=== PATIENT | female | born 1985 ===

== ENCOUNTER 2020-02-07 17:00 | Outpatient (REF) | payer OTHER, SELFPAY ==
[2020-02-09 10:30] LABS: BV Int Neg Control Negative (Negative); BV Int Pos Control Positive (Positive)
== END 2020-02-07 17:01 | disposition home or self-care (01) ==
LOC: HO.LAB 17:00
PROVIDERS: Visit Provider Nurse Practitioner Family
DX: N89.8 Other specified noninflammatory disorders of vagina (principal)
CPT/HCPCS: 87480; 87510; 87660

== ENCOUNTER 2020-02-20 10:58 | Outpatient (REF) | payer OTHER, SELFPAY | END 2020-02-20 10:59 | disposition home or self-care (01) | LOC: HO.LAB 10:58 | PROVIDERS: PCP Internal Medicine; Visit Provider Internal Medicine | DX: Z20.828 Contact with and (suspected) exposure to other viral communicable diseases (principal) | CPT/HCPCS: C9803; U0003 ==

== ENCOUNTER → 2020-02-29 11:44 | Outpatient (BNVA) | payer OTHER, SELFPAY | PROVIDERS: PCP Internal Medicine; Visit Provider Advanced Practice Midwife | DX: Z76.89 Persons encountering health services in other specified circumstances (principal) ==

== ENCOUNTER 2020-03-20 09:04 | Outpatient (REF) | payer OTHER, SELFPAY ==
[2020-03-20 11:47] LABS: Syphilis Screen Nonreactive (Nonreactive)
[2020-03-20 11:49] LABS: HIV AB/AG Nonreactive (Nonreactive); HIV Num 1 0.15 S/CO (0.00-0.99); ~HepC Num1 0.06 S/CO (0.00-0.79); ~Hepatitis C Antibody Nonreactive (Nonreactive)
[2020-03-20 11:56] LABS: Glucose Urine UA NEG (NEG); Leukocyte Esterase Urine 1+ (NEG); Nitrite Urine NEG (NEG); Urine Blood NEG (NEG); Urine Ketones NEG (NEG); Urine Protein NEG (NEG-TRACE)
[2020-03-20 12:00] LABS: Appearance Urine HAZY; Color Urine STRAW
[2020-03-20 12:19] LABS: Bacteria Urine 4+ /LPF; RBC Urine 0 /HPF (0); Squamous Epithelial Cell Urine 3+ /LPF
[2020-03-21 11:09] LABS: BV Int Neg Control Negative (Negative); BV Int Pos Control Positive (Positive)
[2020-03-23 06:38] LABS: CT PCR NOT DETECTED (Not Detect.); NG PCR NOT DETECTED (Not Detect.)
== END 2020-03-20 09:05 | disposition home or self-care (01) ==
LOC: HO.LAB 09:04
PROVIDERS: PCP Internal Medicine; Visit Provider Advanced Practice Midwife
DX: Z01.419 Encounter for gynecological examination (general) (routine) without abnormal findings (principal); R30.0 Dysuria; Z20.2 Contact with and (suspected) exposure to infections with a predominantly sexual mode of transmission; Z72.51 High risk heterosexual behavior
CPT/HCPCS: 81001; 81025; 86780; 86803; 87389; 87480; 87491; 87510; 87591; 87660

== ENCOUNTER 2020-04-19 11:51 | Outpatient (REF) | payer OTHER, SELFPAY ==
[2020-04-19 14:40] LABS: Influenza A PCR NEGATIVE (Negative); Influenza B PCR NEGATIVE (Negative); Resp Syncy Virus RNA Qual PCR NEGATIVE (Negative); SARS COV2 PCR INHOUSE NEGATIVE (Negative)
== END 2020-04-19 11:52 | disposition home or self-care (01) ==
LOC: HO.LAB 11:51
PROVIDERS: Visit Provider Nurse Practitioner Family
DX: L03.90 Cellulitis, unspecified (principal); Z20.822 Contact with and (suspected) exposure to COVID-19
CPT/HCPCS: 0241U; 36415

== ENCOUNTER 2020-07-05 16:11 | Outpatient (REF) | payer OTHER, SELFPAY ==
--- NOTE | ~2020-07-05 | XR_ITS ---
EXAMINATION: XR LUMBAR SPINE XR PELVIS CLINICAL INFORMATION: Low back pain COMPARISON: Lumbar spine 06/04/2011 TECHNIQUE: The lumbar spine is imaged in 3 views. AP view of the pelvis is performed. FINDINGS: There are 5 nonrib-bearing lumbar vertebrae of normal height and normal lumbar lordosis. There is probable spina bifida occulta at S1. There is no vertebral compression, spondylolisthesis, disc narrowing, destructive process. The SI joints and visualized sacrum are unremarkable. The bony pelvis shows no fracture or destructive process. The SI joints and pubis show no diastases. The hips are unremarkable. Bowel gas unremarkable. XR/XR lumbar spine 2-3V IMPRESSION: 1. Unremarkable lumbar spine similar to prior exam 2011. 2. Normal pelvis.
--- NOTE | ~2020-07-05 | XR_ITS ---
EXAMINATION: XR LUMBAR SPINE XR PELVIS CLINICAL INFORMATION: Low back pain COMPARISON: Lumbar spine 06/04/2011 TECHNIQUE: The lumbar spine is imaged in 3 views. AP view of the pelvis is performed. FINDINGS: There are 5 nonrib-bearing lumbar vertebrae of normal height and normal lumbar lordosis. There is probable spina bifida occulta at S1. There is no vertebral compression, spondylolisthesis, disc narrowing, destructive process. The SI joints and visualized sacrum are unremarkable. The bony pelvis shows no fracture or destructive process. The SI joints and pubis show no diastases. The hips are unremarkable. Bowel gas unremarkable. XR/XR pelvis 1-2V IMPRESSION: 1. Unremarkable lumbar spine similar to prior exam 2011. 2. Normal pelvis.
== END 2020-07-05 16:12 | disposition home or self-care (01) ==
LOC: HO.HMGCX 16:11
PROVIDERS: PCP Internal Medicine; Visit Provider Hospitalist
DX: M54.5 Low back pain (principal)
CPT/HCPCS: 72100; 72170

== ENCOUNTER 2020-09-04 16:57 | Outpatient (REF) | payer OTHER, SELFPAY ==
[2020-09-06 08:45] LABS: BV Int Neg Control Negative (Negative); BV Int Pos Control Positive (Positive)
== END 2020-09-04 16:58 | disposition home or self-care (01) ==
LOC: HO.LAB 16:57
PROVIDERS: Visit Provider Nurse Practitioner Family
DX: N89.8 Other specified noninflammatory disorders of vagina (principal)
CPT/HCPCS: 87480; 87510; 87660

== ENCOUNTER 2020-11-21 10:56 | Outpatient (REF) | payer OTHER, SELFPAY ==
[2020-11-21 12:35] LABS: MANUAL DIFF FLAG NO
[2020-11-21 12:43] LABS: Basophils Percent Auto 0.2 % (0-2); Eosinophils Absolute Auto 0.1 X10*3/uL (0.0-0.4); Eosinophils Percent Auto 1.1 % (0-4); Hematocrit 36.9 % (37-47); Hemoglobin 12.1 g/dl (12.0-16.0); Imm Gran Abs Auto 0.04 X10*3/uL (0.00-0.03); Imm Gran Pct Auto 0.5 % (0.0-0.4); Lymphocytes Absolute Auto 1.4 X10*3/uL (1.2-4.9); Lymphocytes Percent Auto 16.9 % (20-40); Mean Corpuscular HGB Conc 32.8 g/dl (31.0-35.0); Mean Corpuscular Hemoglobin 28.9 pg (27.0-33.0); Mean Corpuscular Volume 88.1 fL (80-98); Mean Platelet Volume 9.1 fL (9.4-12.3); Monocytes Absolute Auto 0.5 X10*3/uL (0.1-1.2); Monocytes Percent Auto 5.8 % (2-11); Neutrophils Absolute Auto 6.3 X10*3/uL (2.0-8.3); Neutrophils Percent Auto 75.5 % (45-73); Platelet Count 329 X10*3/uL (160-400); Red Blood Count 4.19 X10*6/uL (4.20-5.50); Red Cell Distribution Width 12.8 % (11.0-16.0); White Blood Count 8.3 X10*3/uL (4.8-10.8)
[2020-11-21 12:44] LABS: Glucose Urine UA NEG (NEG); Leukocyte Esterase Urine 1+ (NEG); Nitrite Urine NEG (NEG); Specific Gravity - Urine 1.015 (1.005-1.025); Urine Blood NEG (NEG); Urine Ketones NEG (NEG); Urine Protein NEG (NEG-TRACE)
[2020-11-21 12:48] LABS: Appearance Urine HAZY; Color Urine YELLOW
[2020-11-21 12:55] LABS: Bacteria Urine 4+ /LPF; RBC Urine 0 /HPF (0); Squamous Epithelial Cell Urine 3+ /LPF
[2020-11-21 13:14] LABS: Alanine Aminotransferase 20 U/L (0-31); Albumin Level 3.6 g/dL (3.5-5.0); Alkaline Phosphatase 95 U/L (39-117); Anion Gap 13 (12-20); Aspartate Amino Transferase 18 U/L (5-31); Bilirubin Total 0.3 mg/dL (0.0-1.0); Blood Urea Nitrogen 4 mg/dL (9-16); Calcium 9.2 mg/dL (8.4-10.2); Carbon Dioxide 23 mmol/L (22-29); Chloride 105 mmol/L (96-108); Cholesterol 190 mg/dL; Estimated Glomerular Filt Rate > 60; Glucose Random 81 mg/dL (60-115); HDL Cholesterol 57 mg/dL; LDL Cholesterol Calculated 115 mg/dl; Potassium 3.9 mmol/L (3.3-5.1); Sodium 137 mmol/L (135-145); Total Protein 6.3 g/dL (6.5-8.0); Triglycerides 91 mg/dL
[2020-11-21 16:19] LABS: Folate 6.1 ng/mL (> or = 4.0); Vitamin B12 266 pg/mL (200-900)
[2020-11-22 04:26] LABS: HBc Num1 0.09 S/CO (0.00-0.79); HBsAGNum1 0.13 S/CO (0.00-0.99); HIV AB/AG Nonreactive (Nonreactive); HIV Num 1 0.05 S/CO (0.00-0.99); Hepatitis B Core Antibody Nonreactive (Nonreactive); Hepatitis B Surface Antigen Negative (Negative); ~HepC Num1 0.07 S/CO (0.00-0.79); ~Hepatitis C Antibody Nonreactive (Nonreactive)
[2020-11-22 04:37] LABS: ~Hepatitis B Surface Antibody REACTIVE (Nonreactive)
== END 2020-11-21 10:57 | disposition home or self-care (01) ==
LOC: HO.LAB 10:56
PROVIDERS: PCP Internal Medicine; Visit Provider Internal Medicine
DX: R94.5 Abnormal results of liver function studies (principal); E66.9 Obesity, unspecified; E78.00 Pure hypercholesterolemia, unspecified
CPT/HCPCS: 36415; 80053; 80061; 81001; 82306; 82607; 82746; 84439; 84443; 85025; 86704; 86706; 86803; 87340; 87389

== ENCOUNTER 2020-12-14 03:35 | Emergency (ER) | payer OTHER, SELFPAY ==
[2020-12-14] VITALS (8 sets, daily range): BP systolic 102–129; BP diastolic 57–89; PULSE 81–93; RESP 14–28; TEMP 37.3; O2SAT 89–100; BMI 34.9
--- NOTE | 2020-12-14 03:47 | PC.NURSE ---
PT PLACED ON 6L NC . FETUS HAS PASSED WITH DR MURPHY PT JORGE WELL.
[2020-12-14 03:51] LABS: MANUAL DIFF FLAG NO
[2020-12-14 03:52] LABS: Basophils Percent Auto 0.2 % (0-2); Eosinophils Absolute Auto 0.1 X10*3/uL (0.0-0.4); Eosinophils Percent Auto 0.9 % (0-4); Hematocrit 36.5 % (37-47); Hemoglobin 12.5 g/dl (12.0-16.0); Imm Gran Abs Auto 0.03 X10*3/uL (0.00-0.03); Imm Gran Pct Auto 0.3 % (0.0-0.4); Lymphocytes Absolute Auto 2.5 X10*3/uL (1.2-4.9); Lymphocytes Percent Auto 21.4 % (20-40); Mean Corpuscular HGB Conc 34.2 g/dl (31.0-35.0); Mean Corpuscular Hemoglobin 29.8 pg (27.0-33.0); Mean Corpuscular Volume 86.9 fL (80-98); Mean Platelet Volume 8.6 fL (9.4-12.3); Monocytes Absolute Auto 0.7 X10*3/uL (0.1-1.2); Monocytes Percent Auto 6.2 % (2-11); Neutrophils Absolute Auto 8.3 X10*3/uL (2.0-8.3); Platelet Count 314 X10*3/uL (160-400); Red Cell Distribution Width 12.5 % (11.0-16.0); White Blood Count 11.6 X10*3/uL (4.8-10.8)
--- NOTE | 2020-12-14 04:08 | PC.NURSE ---
this nuclear unit operator called [facility] medical transfer line and spoke to Theresa @[phone]
--- NOTE | 2020-12-14 04:11 | ED.FEMALEGU ---
HPI - Female Genitourinary General Chief complaint: Urogenital-Female Stated complaint: bleeding, Time Seen by Provider: 12/14/20 04:08 Source: patient Mode of arrival: ambulatory Limitations: no limitations History of Present Illness HPI Narrative: Patient comes to the emergency room complaining of contractions. Patient is known to be a at 20 weeks of gestational age. Patient states that early in her she had an ultrasound done and the was confirmed. Patient has not had any care. 2 hours prior to arriving to the emergency room, patient woke up with intense contractions every 3 minutes lasting for approximately 1 minute. 1 hour prior to arrival, her water broke. Related Data Home Medications Medication Instructions Recorded Confirmed loratadine 10 mg tablet 10 mg PO DAILY 11/21/20 11/21/20 Previous Rx's Medication Instructions Recorded acyclovir 200 mg capsule 800 mg PO DAILY #360 cap 06/15/20 Allergies Allergy/AdvReac Type Severity Reaction Status Date / Time doxycycline Allergy Unknown unknown Verified 11/21/20 10:22 latex Allergy Unknown rash Verified 11/21/20 10:22 minocycline Allergy Unknown unknown Verified 11/21/20 10:22 shellfish derived AdvReac Unknown Verified 12/14/20 04:14 Review of Systems Review of Systems: Constitutional : No Weight loss, No Fever, No Chills, No Night Sweats, No Fatigue, No Malaise ENT/Mouth : No Hearing loss, No Ear Pain, No Nasal Congestion, No Sinus Pain, No Hoarseness, No sore throat, No Rhinorrhea, No Swallowing Difficulty Eyes: No Eye Pain, No Swelling, No Redness, No Foreign Body, No Discharge, No Vision Changes Cardiovascular : No Chest Pain, No SOB, No Dyspnea on Exertion, No Orthopnea, No Edema, No Palpitations Respiratory : No Cough, No Sputum, No Wheezing, No Smoke Exposure, No Dyspnea Gastrointestinal : No Nausea, No Vomiting, No Diarrhea, No Constipation genitourinary: Intense contractions, copious vaginal fluid leakage with some blood Musculoskeletal : No joint pain, No Myalgias, No Joint Swelling Skin : No Skin Lesions, No rash Neuro : No Weakness, No Numbness, No Paresthesias, No Loss of Consciousness, No Dizziness, No Headache Psych : No Anxiety/Panic, No Depression, No SI/HI/AH/VH, No Social Issues, Heme/Lymph: No Bruising, No Bleeding,No Lymphadenopathy Endocrine : No Polyuria, No Polydipsia, No Temperature Intolerance [facility] Past Medical History Medical History Anxiety and depression Back pain Body aches after vaccination Carpal tunnel syndrome Cellulitis Exposure to COVID-19 virus Fracture of middle phalanx of right ring finger GERD (gastroesophageal reflux disease) Obesity (BMI 30-39.9) Potential exposure to STD Somatic dysfunction of left sacroiliac joint Somatic dysfunction of right sacroiliac joint Vaginal discharge Vitamin D deficiency Surgical History Deficient knowledge of leg surgery Family History Family History Maternal Grandmother Heart disease Hypertension Father No problems noted. Mother Diabetes CVD (cardiovascular disease) Maternal Grandfather Heart disease Hypertension Myocardial infarction Maternal Aunt Ovarian ca Maternal Uncle Diabetes Paternal Uncle Diabetes Social History Social History Housing: House Alcohol intake: current Alcohol intake frequency: holidays/special occasions only Patient Tobacco Use Status: Former Tobacco user Tobacco use type: Cigarette e-Cigarette/Vaping Use: Never Used Second Hand Smoke Exposure: No service: No Current occupational status: employed Current occupational exposures/hazards: No Gender identity: Female Physical Exam Vital Signs: Vital Signs: Last Vital Signs Temp 99.1 F 12/14/20 03:58 Pulse 93 12/14/20 05:00 Resp 20 12/14/20 05:00 BP 126/89 12/14/20 05:00 Pulse Ox 100 12/14/20 05:00 Body Mass Index 34.9 Const: Other: Appearance: Alert. In active labor Eyes: Pupils equal, round and reactive to light. ENT: Pharynx normal. Neck: Normal inspection. Neck supple. No lymph nodes noted. No crepitus CVS: Normal heart rate and rhythm. Pulses normal. Normal S1 and S2 Respiratory: No respiratory distress. Breath sounds normal. No Wheezing. No rales Abdomen: Uterus matt every 2-3 minutes. Gu: On pelvic exam, the fetus is in the vaginal canal, a bedside ultrasound shows a questionable heartbeat of blood and 20 beats per minute Skin: Skin warm and dry. Extremities: No lower extremity edema. No lower extremity edema. No Lacerations. No Rash Neuro: Oriented X 3. No motor deficit. No sensory deficit. Moving all extermities. No slurred speech. Course Course Course Narrative: Unfortunately, the patient delivered prematurely. The fetus was delivered, very premature, no pulses present, no respiratory effort present, resuscitation was not attempted. After delivering the fetus, the umbilical cord broke, the placenta was not delivered. Patient had minimal vaginal bleeding, the uterus was very boggy, 10 units of Pitocin were injected IM in the right thigh. Bleeding stopped. The placenta could not be delivered. I discussed the patient with Dr. Stone . Patient's vitals are stable, receiving IV fluids. Patient needs to be transferred to [facility], Dr. Stone does not recommend that we delivered the placenta here. There is no vaginal bleeding at this time. I discussed the patient with Dr. Saunders from [facility] OBGYN service. Patient accepted. COVID negative MDM - Female Genitourinary Lab Data Result diagrams: 12/14/20 03:40 12/14/20 03:40 Labs: Lab Results 12/14/20 12/14/20 12/14/20 Range/Units 03:40 03:40 04:05 WBC 11.6 H (4.8-10.8) X10*3/uL RBC 4.20 (4.20-5.50) X10*6/uL Hgb 12.5 (12.0-16.0) g/dl Hct 36.5 L (37-47) % MCV 86.9 (80-98) fL MCH 29.8 (27.0-33.0) pg MCHC 34.2 (31.0-35.0) g/dl RDW 12.5 (11.0-16.0) % Plt Count 314 (160-400) X10*3/uL MPV 8.6 L (9.4-12.3) fL Immature Gran % (Auto) 0.3 (0.0-0.4) % Neut % (Auto) 71.0 (45-73) % Lymph % (Auto) 21.4 (20-40) % [place] % (Auto) 6.2 (2-11) % Eos % (Auto) 0.9 (0-4) % Baso % (Auto) 0.2 (0-2) % Lymph # (Auto) 2.5 (1.2-4.9) X10*3/uL [place] # (Auto) 0.7 (0.1-1.2) X10*3/uL Eos # (Auto) 0.1 (0.0-0.4) X10*3/uL Baso # (Auto) 0.0 (0.0-0.2) X10*3/uL Abs Immat Gran (auto) 0.03 (0.00-0.03) X10*3/uL Absolute Neuts (auto) 8.3 (2.0-8.3) X10*3/uL Absolute Nucleated RBC 0.000 (0.0-0.012) X10*3/uL Nucleated RBC % (auto) 0.0 (0.0-0.2) /100WBC Sodium 137 (135-145) mmol/L Potassium 4.0 (3.3-5.1) mmol/L Chloride 106 (96-108) mmol/L Carbon Dioxide 21 L (22-29) mmol/L Anion Gap 14 (12-20) BUN 5 L (9-16) mg/dL Creatinine 0.59 (0.5-1.4) mg/dL Estim Creat Clear Calc 129.5 Estimated GFR > 60 Random Glucose 128 H D (60-115) mg/dL Calcium 9.1 (8.4-10.2) mg/dL Total Bilirubin 0.2 (0.0-1.0) mg/dL AST 18 (5-31) U/L ALT 8 (0-31) U/L Alkaline Phosphatase 104 (39-117) U/L Total Protein 6.5 (6.5-8.0) g/dL Albumin 3.6 (3.5-5.0) g/dL Beta HCG, Quant 294 mIU/mL COVID-19 (DENISE) (Negative) COVID-19 Clin Com Blood Type O Positive Antibody Screen NEGATIVE 12/14/20 Range/Units 04:16 WBC (4.8-10.8) X10*3/uL RBC (4.20-5.50) X10*6/uL Hgb (12.0-16.0) g/dl Hct (37-47) % MCV (80-98) fL MCH (27.0-33.0) pg MCHC (31.0-35.0) g/dl RDW (11.0-16.0) % Plt Count (160-400) X10*3/uL MPV (9.4-12.3) fL Immature Gran % (Auto) (0.0-0.4) % Neut % (Auto) (45-73) % Lymph % (Auto) (20-40) % [place] % (Auto) (2-11) % Eos % (Auto) (0-4) % Baso % (Auto) (0-2) % Lymph # (Auto) (1.2-4.9) X10*3/uL [place] # (Auto) (0.1-1.2) X10*3/uL Eos # (Auto) (0.0-0.4) X10*3/uL Baso # (Auto) (0.0-0.2) X10*3/uL Abs Immat Gran (auto) (0.00-0.03) X10*3/uL Absolute Neuts (auto) (2.0-8.3) X10*3/uL Absolute Nucleated RBC (0.0-0.012) X10*3/uL Nucleated RBC % (auto) (0.0-0.2) /100WBC Sodium (135-145) mmol/L Potassium (3.3-5.1) mmol/L Chloride (96-108) mmol/L Carbon Dioxide (22-29) mmol/L Anion Gap (12-20) BUN (9-16) mg/dL Creatinine (0.5-1.4) mg/dL Estim Creat Clear Calc Estimated GFR Random Glucose (60-115) mg/dL Calcium (8.4-10.2) mg/dL Total Bilirubin (0.0-1.0) mg/dL AST (5-31) U/L ALT (0-31) U/L Alkaline Phosphatase (39-117) U/L Total Protein (6.5-8.0) g/dL Albumin (3.5-5.0) g/dL Beta HCG, Quant mIU/mL COVID-19 (DENISE) Negative (Negative) COVID-19 Clin Com See Note Blood Type Antibody Screen Discharge Plan Discharge Clinical Impression: labor second trimester with delivery second trimester, other fetus Patient Disposition: Xfer Acute Care Hospital Transfer Details: [facility] Prescriptions: No Action acyclovir 200 mg capsule 800 mg PO DAILY Qty: 360 RF: 0 loratadine 10 mg tablet 10 mg PO DAILY RF: 0 Interventions: Acute Care Transfer Worksheet (ED) Last Done: 12/14/20 05:17 Discharge Date/Time: 12/14/20 05:05
[2020-12-14 04:13] LABS: HCG Quantitative 294 mIU/mL
[2020-12-14 04:17] LABS: Alanine Aminotransferase 8 U/L (0-31); Albumin Level 3.6 g/dL (3.5-5.0); Alkaline Phosphatase 104 U/L (39-117); Anion Gap 14 (12-20); Aspartate Amino Transferase 18 U/L (5-31); Bilirubin Total 0.2 mg/dL (0.0-1.0); Blood Urea Nitrogen 5 mg/dL (9-16); Calcium 9.1 mg/dL (8.4-10.2); Carbon Dioxide 21 mmol/L (22-29); Chloride 106 mmol/L (96-108); Creatinine Clr Calc Pharmacy 129.5; Estimated Glomerular Filt Rate > 60; Glucose Random 128 mg/dL (60-115); Sodium 137 mmol/L (135-145); Total Protein 6.5 g/dL (6.5-8.0)
--- NOTE | 2020-12-14 04:19 | PC.NURSE ---
pt is having contractions no placenta at this time. 2l ns wide open. pt is alert oriented, is aware of the need to be transported to [facility].
--- NOTE | 2020-12-14 04:20 | PC.RT ---
this cracking unit operator called [facility] transfer line for the second time @[phone]
[2020-12-14 04:34] LABS: COVID-19 Test Negative (Negative)
--- NOTE | 2020-12-14 04:37 | P.CONOB_ITS ---
OB Consult Note - [facility] Data Service Date: 12/14/20 Primary Care Provider: Unknown Physician Narrative I was Called at 03:56 a.m. from the emergency room regarding Georgette Oliveros who is a 35 year old female presented the emergency room with crampy abdominal pain of 3 hours duration and had a vaginal delivery at 20 weeks of gestation aft er a gush of fluid few minutes prior to delivery, the placenta was not delivered yet, the patient received Pitocin after delivery. No active bleeding. I Arrived to the emergency room at 04:15 a.m. patient is doing well with no vaginal bleeding. Patient has no care, no history of cervical procedures or LEEP. H&H within normal, Rh positive FORMS EXAMINER - Review of Systems Review of Systems ROS Unobtainable: All systems reviewed & are unremarkable except as noted in HPI and below OB PMFSH Past Medical History Medical History Anxiety and depression Back pain Body aches after vaccination Carpal tunnel syndrome Cellulitis Exposure to COVID-19 virus Fracture of middle phalanx of right ring finger GERD (gastroesophageal reflux disease) Obesity (BMI 30-39.9) Potential exposure to STD Somatic dysfunction of left sacroiliac joint Somatic dysfunction of right sacroiliac joint Vaginal discharge Vitamin D deficiency Family History Family History Maternal Grandmother Heart disease Hypertension Father No problems noted. Mother Diabetes CVD (cardiovascular disease) Maternal Grandfather Heart disease Hypertension Myocardial infarction Maternal Aunt Ovarian ca Maternal Uncle Diabetes Paternal Uncle Diabetes Surgical History Surgical History Deficient knowledge of leg surgery Social History Social History Housing: House Alcohol intake: current Alcohol intake frequency: holidays/special occasions only Patient Tobacco Use Status: Former Tobacco user Tobacco use type: Cigarette e-Cigarette/Vaping Use: Never Used Second Hand Smoke Exposure: No Advance Directives: No Advance Directives Information Provided: Yes Patient : Yes service: No Current occupational status: employed Current occupational exposures/hazards: No Gender identity: Female Meds Allergies Allergy/AdvReac Type Severity Reaction Status Date / Time doxycycline Allergy Unknown unknown Verified 08/12/21 10:22 latex Allergy Unknown rash Verified 11/21/20 10:22 minocycline Allergy Unknown unknown Verified 11/21/20 10:22 shellfish derived AdvReac Unknown Verified 12/14/20 04:14 Home Medications Medication Instructions Recorded Confirmed Last Taken Type loratadine 10 mg tablet 10 mg PO DAILY 11/21/20 11/21/20 Unknown History OB Flowsheet OB Flowsheet & Tools History 3 Elective abortions Para Spontaneous abortions Hx # Term Pregnancies 2 Ectopic pregnancies Hx # Pregnancies Multiple births OB Physical Exam Physical Exam Constitutional: No apparent distress Additional Comments: No active bleeding, placenta in the uterus OB Consult Results Labs CBC & Chem 7: 12/14/20 03:40 12/14/20 03:40 Labs: Short CBC 12/14/20 Range/Units 03:40 WBC 11.6 H (4.8-10.8) X10*3/uL Hgb 12.5 (12.0-16.0) g/dl Hct 36.5 L (37-47) % Plt Count 314 (160-400) X10*3/uL BMP 12/14/20 03:40 Sodium 137 Potassium 4.0 Chloride 106 Carbon Dioxide 21 L BUN 5 L Creatinine 0.59 Calcium 9.1 Liver Function 12/14/20 Range/Units 03:40 Total Bilirubin 0.2 (0.0-1.0) mg/dL AST 18 (5-31) U/L ALT 8 (0-31) U/L Alkaline Phosphatase 104 (39-117) U/L Albumin 3.6 (3.5-5.0) g/dL OB - CN: A/P Assessment and Plan (1) labor second trimester with delivery second trimester, other fetus: Status: Acute (2) Retained placenta after delivery without hemorrhage but with other complication: Status: Acute Assessment and Plan: Since the patient is not having any active bleeding and the placenta has not delivered yet, I recommended transfer the patient to [facility] for placental delivery. EMS and [facility] called EMS arrived at 04:40 and [facility] accepted the transfer. Explained to the patient the rationale behind transfer of care, f or active management of the 3rd stage of labor and in case the placenta stays retained in utero the next step step could be D and E with possible blood transfusion. All questions answered, the patient verbalized understanding and agreed with the plan.
--- NOTE | 2020-12-14 05:01 | PC.NURSE ---
called [facility] to transport patient to [facility]. [facility] gave an ETA of 35-45 mins. Spoke with she stated this was not an acceptable wait time for a critical patient. [facility] refused to change the ETA at this time. [facility] was contacted and was able to provide a more acceptable time.
--- NOTE | 2020-12-14 05:07 | PC.NURSE ---
pt transfered to [facility]. vitals stable.
== END 2020-12-14 05:05 | disposition short-term general hospital (02) ==
PROVIDERS: Emergency Provider Emergency Medicine
DX: O60.1 Preterm labor with preterm delivery (principal); O73.0 Retained placenta without hemorrhage; Z3A.20 20 weeks gestation of pregnancy; Z20.822 Contact with and (suspected) exposure to COVID-19
CPT/HCPCS: 36415; 80053; 84702; 85025; 86850; 86900; 86901; 87635; 96372; 99285; J2590

== ENCOUNTER 2021-07-11 18:27 | Outpatient (REF) | payer OTHER, SELFPAY ==
[2021-07-11 19:06] LABS: Appearance Urine CLEAR; Color Urine YELLOW; Glucose Urine UA NEG (NEG); Leukocyte Esterase Urine NEG (NEG); Nitrite Urine NEG (NEG); PH 6.5 (5.0-8.0); Specific Gravity - Urine 1.015 (1.005-1.025); Urine Blood NEG (NEG); Urine Ketones NEG (NEG); Urine Protein NEG (NEG-TRACE)
[2021-07-11 19:18] LABS: Bacteria Urine 3+ /LPF; RBC Urine 0 /HPF (0); Squamous Epithelial Cell Urine 3+ /LPF; WBC Urine 0 /HPF (0-4)
[2021-07-12 12:22] LABS: BV Int Neg Control Negative (Negative); BV Int Pos Control Positive (Positive)
== END 2021-07-11 18:28 | disposition home or self-care (01) ==
LOC: HO.LNP 18:27
PROVIDERS: Internal Medicine; Visit Provider Nurse Practitioner Family
DX: E66.9 Obesity, unspecified (principal); R30.0 Dysuria; R35.0 Frequency of micturition; N89.8 Other specified noninflammatory disorders of vagina
CPT/HCPCS: 81001; 87086; 87480; 87510; 87660

== ENCOUNTER 2021-09-12 08:33 | Outpatient (REF) | payer OTHER, SELFPAY ==
[2021-09-12 11:28] LABS: MANUAL DIFF FLAG NO
[2021-09-12 11:43] LABS: Basophils Percent Auto 0.5 % (0-2); Eosinophils Absolute Auto 0.1 X10*3/uL (0.0-0.4); Eosinophils Percent Auto 1.3 % (0-4); Hematocrit 41.9 % (37.0-47.0); Hemoglobin 13.5 g/dl (12.0-16.0); Imm Gran Abs Auto 0.02 X10*3/uL (0.00-0.03); Imm Gran Pct Auto 0.3 % (0.0-0.4); Lymphocytes Absolute Auto 1.8 X10*3/uL (1.2-4.9); Lymphocytes Percent Auto 29.5 % (20-40); Mean Corpuscular HGB Conc 32.2 g/dl (31.0-35.0); Mean Corpuscular Hemoglobin 28.4 pg (27.0-33.0); Mean Corpuscular Volume 88.2 fL (80.0-98.0); Mean Platelet Volume 9.4 fL (9.4-12.3); Monocytes Absolute Auto 0.4 X10*3/uL (0.1-1.2); Monocytes Percent Auto 7.3 % (2-11); Neutrophils Absolute Auto 3.7 x10*3/uL (2.0-8.3); Neutrophils Percent Auto 61.1 % (45-73); Platelet Count 324 X10*3/uL (160-400); Red Blood Count 4.75 X10*6/uL (4.20-5.50); Red Cell Distribution Width 12.9 % (11.0-16.0)
[2021-09-12 11:57] LABS: Alanine Aminotransferase 13 U/L (0-31); Albumin Level 4.1 g/dL (3.5-5.0); Alkaline Phosphatase 94 U/L (39-117); Anion Gap 12 (12-20); Aspartate Amino Transferase 14 U/L (5-31); Bilirubin Total 0.5 mg/dL (0.0-1.0); Blood Urea Nitrogen 11 mg/dL (9-16); Calcium 9.8 mg/dL (8.4-10.2); Carbon Dioxide 24 mmol/L (22-29); Chloride 105 mmol/L (96-108); Cholesterol 151 mg/dL; Estimated Glomerular Filt Rate > 60; Glucose Random 103 mg/dL (60-115); HDL Cholesterol 44 mg/dL; LDL Cholesterol Calculated 96 mg/dl; Potassium 4.1 mmol/L (3.3-5.1); Sodium 137 mmol/L (135-145); Total Protein 7.2 g/dL (6.5-8.0); Triglycerides 58 mg/dL
[2021-09-12 12:10] LABS: Cortisol Random 13.9 ug/dL
[2021-09-12 12:21] LABS: Free T4 (Free Thyroxine) 0.97 ng/dL (0.71-1.85); Thyroid Stimulating Hormone 1.99 uIU/mL (0.32-4.0); Vitamin D 25-OH Total 26.2 ng/mL (>30)
[2021-09-12 12:34] LABS: Folate 8.7 ng/mL (> or = 4.0)
[2021-09-12 12:57] LABS: Estimated Average Glucose 111 mg/dL; Hemoglobin A1c % 5.5 %
[2021-09-12 14:52] LABS: Vitamin B12 399 pg/mL (200-900)
== END 2021-09-12 08:34 | disposition home or self-care (01) ==
LOC: HO.HMGCLDS 08:33
PROVIDERS: PCP Internal Medicine; Visit Provider Internal Medicine
DX: K21.9 Gastro-esophageal reflux disease without esophagitis (principal); E78.00 Pure hypercholesterolemia, unspecified; E66.9 Obesity, unspecified
CPT/HCPCS: 36415; 80053; 80061; 82306; 82533; 82607; 82746; 83036; 84439; 84443; 85025

== ENCOUNTER 2021-11-19 15:17 | Outpatient (REF) | payer OTHER, SELFPAY ==
[2021-11-19 16:09] LABS: Appearance Urine HAZY; Color Urine OTHER; Glucose Urine UA NEG (NEG); Leukocyte Esterase Urine 2+ (NEG); Nitrite Urine NEG (NEG); Specific Gravity - Urine <= 1.005 (1.005-1.025); Urine Blood 3+ (NEG); Urine Ketones NEG (NEG); Urine Protein 1+ MG/DL (NEG-TRACE)
[2021-11-19 16:17] LABS: Bacteria Urine 1+ /LPF; RBC Urine 50-75 /HPF (0); Squamous Epithelial Cell Urine 2+ /LPF
== END 2021-11-19 15:18 | disposition home or self-care (01) ==
LOC: HO.LAB 15:17
PROVIDERS: PCP Internal Medicine; Visit Provider Internal Medicine
DX: R35.0 Frequency of micturition (principal)
CPT/HCPCS: 81001

== ENCOUNTER 2021-11-25 09:49 | Emergency (ER) | payer OTHER, SELFPAY ==
--- NOTE | ~2021-11-25 | XR_ITS ---
EXAMINATION: XR CHEST CLINICAL INFORMATION: Weakness and difficulty breathing COMPARISON: None TECHNIQUE: 2 views of the chest were obtained. FINDINGS: No significant abnormality is noted involving the heart, lungs, mediastinum, bony thorax or soft tissues. XR/XR chest 2V IMPRESSION: Unremarkable examination.
[2021-11-25 10:00] VITALS: BP 112/63; PULSE 102; RESP 16; TEMP 36.8; O2SAT 98; BMI 34.7
[2021-11-25 10:32] LABS: COVID-19 Test Negative (Negative); IDNOW Serial# 16C4AD1C
--- NOTE | 2021-11-25 11:22 | ED_ITS ---
HPI - General Adult General Chief complaint: General Medical Stated complaint: sever body aches, sob Time Seen by Provider: 11/25/21 10:58 Source: patient Mode of arrival: ambulatory Limitations: no limitations History of Present Illness HPI narrative: 36 yo female healthy here with complaints of 2 days of body aches, fatigue, PEREA, runny nose, chills. Patient is currently on Bactrim for UTI which she started on 11/20. She does report some lower back pain and urinary symptoms which have continued. She denies any abdominal pain, vomiting, diarrhea, shortness of breath or chest pain. Patient does report chronic body aches and she has seen physical therapy, chiropractor and her primary care doctor. Related Data Home Medications Medication Instructions Recorded Confirmed loratadine 10 mg tablet 10 mg PO DAILY 11/21/20 08/26/21 Previous Rx's Medication Instructions Recorded acyclovir 200 mg capsule 800 mg PO DAILY #360 caps 03/21/21 epinephrine 0.3 mg/0.3 mL 0.3 mg (0.3 mL) IM Q10M PRN 07/11/21 injection, auto-injector (EpiPen) anaphylaxis #2 ea bupropion HCl 150 mg 24 hr tablet, 150 mg PO QAM #30 tabs 08/26/21 extended release (Wellbutrin XL) fluconazole 150 mg tablet 150 mg PO Q3D 2 doses #2 tabs 09/12/21 (Diflucan) ibuprofen 600 mg tablet 600 mg PO Q8H PRN pain #20 tabs 09/12/21 sulfamethoxazole 200 20 ml PO BID 7 days #280 mL 11/20/21 mg-trimethoprim 40 mg/5 mL oral suspension Allergies Allergy/AdvReac Type Severity Reaction Status Date / Time latex Allergy Unknown rash Verified 09/12/21 09:18 minocycline Allergy Unknown unknown Verified 09/12/21 09:18 shellfish derived AdvReac Unknown Verified 09/12/21 09:18 Review of Systems Review of Systems: Yes all other systems are reviewed and are negative Constitutional: Constitutional: Reports no additional constitutional complaints, Reports body ache(s), Reports chills, Reports fatigue, Denies fever(s), Reports headache(s) and Denies weakness Eyes: Eyes: Reports no additional eye complaints and Denies change in vision ENT: Reports system reviewed and no additional complaints, except as documented, Denies dizziness, Reports headache(s), Reports nasal congestion, Denies nasal discharge and Denies neck pain Cardiovascular: Cardiovascular: Reports no additional cardiovascular complaints, Denies chest pain, Denies leg edema and Denies dyspnea Respiratory: Respiratory: Reports no additional respiratory complaints, Denies cough and Denies dyspnea Gastrointestinal: Gastrointestinal: Reports no additional gastrointestinal complaints, Denies abdominal pain, Denies diarrhea, Denies nausea and Denies vomiting Genitourinary: Genitourinary: Reports no additional female genitourinary complaints, Reports dysuria and Denies urinary incontinence Musculoskeletal: Musculoskeletal: Reports no additional musculoskeletal complaints, Reports back pain, Denies arthralgias, Denies joint swelling, Denies neck pain, Denies numbness and Denies tingling Integumentary/Breasts: Skin/Breast: Reports system reviewed and no additional complaints, except as docu and Denies rash Neurologic: Reports system reviewed and no additional complaints, except as documented, Denies dizziness, Reports headache(s), Denies numbness, Denies tingling and Denies weakness Endocrine: Endocrine: Reports fatigue PMFSH Past Medical History Attestation statement: The following information was validated with the patient. Source: old records reviewed and nursing notes reviewed Medical History Anxiety and depression Back pain Body aches after vaccination Carpal tunnel syndrome Cellulitis Exposure to COVID-19 virus Fracture of middle phalanx of right ring finger GERD (gastroesophageal reflux disease) Obesity (BMI 30-39.9) Potential exposure to STD Somatic dysfunction of left sacroiliac joint Somatic dysfunction of right sacroiliac joint Vaginal discharge Vitamin D deficiency Surgical History Deficient knowledge of leg surgery Family History Family History Maternal Grandmother Heart disease Hypertension Father No problems noted. Mother Diabetes CVD (cardiovascular disease) Maternal Grandfather Heart disease Hypertension Myocardial infarction Maternal Aunt Ovarian ca Maternal Uncle Diabetes Paternal Uncle Diabetes Social History Social History Housing: House Alcohol intake: current Alcohol intake frequency: holidays/special occasions only Patient Tobacco Use Status: Never used Tobacco Tobacco use type: Cigarette e-Cigarette/Vaping Use: Never Used Second Hand Smoke Exposure: No Advance Directives: No Advance Directives Information Provided: No service: No Current occupational status: employed Current occupational exposures/hazards: No Gender identity: Female Cognitive needs: No Hearing needs: No Vision needs: No Physical Exam ED Vital Signs: Vital Signs - 24 hr 11/25/21 10:00 11/25/21 11:44 11/25/21 12:57 Temperature 98.3 F 99.4 F 100.8 F H Pulse Rate 102 H 101 H 92 Respiratory Rate 16 18 20 Blood Pressure 112/63 105/59 L 114/70 Pulse Oximetry 98 100 90 L Oxygen Delivery Method Room Air Room Air Room Air 11/25/21 14:44 Temperature Pulse Rate 104 H Respiratory Rate Blood Pressure Pulse Oximetry 99 Oxygen Delivery Method Room Air BMI result Body Mass Index 34.7 Const General: cooperative, healthy appearing, comfortable and no acute distress Orientation/consciousness: patient oriented x3 Limitations: no limitations HENMT Head: Yes normal to inspection Ears: hearing grossly normal bilaterally and TM's normal bilaterally General nose exam: Normal external nose present Face and sinus: Yes normal facial exam Mouth: Normal oral and palatal mucosa present Throat: Yes posterior oropharynx normal, Yes tonsils normal and Yes uvula midline Eyes General: appearance normal, both eyes and all related structures Pupils: Equal, round and reactive pupils present Neck Neck: Yes normal visual inspection, Yes full ROM, Yes no lymphadenopathy and Yes no meningeal signs Chest Chest palpation & inspection: normal inspection of the chest Resp Effort & Inspection: normal respiratory effort Auscultation: clear to auscultation bilaterally Cardio Rate: regular rate Rhythm: regular rhythm Peripheral pulses: Peripheral pulses 2+ throughout GI Inspection: Yes normal to inspection Palpation (GI): Soft to palpation and nontender General: Yes no CVA tenderness Back/Spine/Pelvis Back: no CVA tenderness Thoracic/Lumbar Spine: thoracic and lumbar spine normal to inspection Skin General skin exam: no rashes or lesions noted Neuro General: patient oriented x3, moves all extremities and no meningeal signs Cranial nerves: Yes Equal, round and reactive pupils present Cognition (Neuro): normal cognition Gait exam (Neuro): Normal gait present Extrem General: Yes normal to inspection, Yes no pedal edema and Yes no calf tenderness Course Course Course Narrative: 1300-patient COVID screen and urine shows no signs of infection. She has a fever of 100.8 and oxygen saturation of 90%. Will check labs and chest x-ray as well as flu screen. Patient to be given Toradol Reevaluation(s) Reevaluation #1: 1500-x-ray shows no acute finding. Labs are unremarkable. Flu screen is negative. Patient ambulated with a pulse oximeter with oxygen saturation 98 99%. Overall she is feeling improved. Her temperature is improved with an antipyretic. Likely viral syndrome. Plan for discharge home with supportive care. Reviewed worrisome signs and symp toms when to return to the emergency department. Comfortable discharge home. Medical Decision Making MDM Narrative Medical decision making narrative: 36-year-old female here with body aches, fatigue, headache, chills, runny nose for 2 days. Patient also complaining of continued low back pain and urinary symptoms despite being on Bactrim. Will check COVID testing, urine testing. Overall patient nontoxic -low concern for meningitis with no meningeal signs, no nuchal rigidity, overall nontoxic. Medical Records Medical records reviewed: Yes I reviewed the patient's medical records. Lab Data Lab results reviewed: Yes I reviewed the patient's lab results. Result diagrams: 11/25/21 13:18 11/25/21 13:18 Labs: Lab Results 11/25/21 11/25/21 11/25/21 Range/Units 10:04 11:32 11:32 WBC (4.8-10.8) X10*3/uL RBC (4.20-5.50) X10*6/uL Hgb (12.0-16.0) g/dl Hct (37.0-47.0) % MCV (80.0-98.0) fL MCH (27.0-33.0) pg MCHC (31.0-35.0) g/dl RDW (11.0-16.0) % Plt Count (160-400) X10*3/uL MPV (9.4-12.3) fL Immature Gran % (Auto) (0.0-0.4) % Neut % (Auto) (45-73) % Lymph % (Auto) (20-40) % [place] % (Auto) (2-11) % Eos % (Auto) (0-4) % Baso % (Auto) (0-2) % Lymph # (Auto) (1.2-4.9) X10*3/uL [place] # (Auto) (0.1-1.2) X10*3/uL Eos # (Auto) (0.0-0.4) X10*3/uL Baso # (Auto) (0.0-0.2) X10*3/uL Abs Immat Gran (auto) (0.00-0.03) X10*3/uL Absolute Neuts (auto) (2.0-8.3) x10*3/uL Absolute Nucleated RBC (0.0-0.012) X10*3/uL Nucleated RBC % (auto) (0.0-0.2) /100WBC PT (10.0-13.1) SEC INR (0.9-1.1) Sodium (135-145) mmol/L Potassium (3.3-5.1) mmol/L Chloride (96-108) mmol/L Carbon Dioxide (22-29) mmol/L Anion Gap (12-20) BUN (9-16) mg/dL Creatinine (0.5-1.4) mg/dL Estim Creat Clear Calc Estimated GFR Random Glucose (60-115) mg/dL Calcium (8.4-10.2) mg/dL Total Bilirubin (0.0-1.0) mg/dL Direct Bilirubin (0.0-0.5) mg/dL AST (5-31) U/L ALT (0-31) U/L Alkaline Phosphatase (39-117) U/L Total Protein (6.5-8.0) g/dL Albumin (3.5-5.0) g/dL Urine Color Yellow Urine Appearance Clear Urine pH 6.5 (5.0-8.0) Ur Specific [place] 1.025 (1.005-1.025) Urine Protein Negative (Neg-Trace) mg/dL Urine Glucose (UA) Negative (Negative) mg/dL Urine Ketones 15 (Negative) mg/dL Urine Blood Negative (Negative) Urine Nitrite Negative (Negative) Ur Leukocyte Esterase Trace H (Negative) Urine RBC 6-10 H (0-2) /HPF Urine WBC 0-5 (0-5) /HPF Ur Squamous Epith Cells 6-10 /HPF Urine Bacteria 2+ (None Seen) Hyaline Casts 0-2 /LPF Urine Test NEGATIVE (NEGATIVE) COVID-19 (DENISE) Negative (Negative) COVID-19 Clin Com See Note Influenza Type A (GRACE) (Negative) Influenza Type B (GRACE) (Negative) Influenza A & B Note 11/25/21 11/25/21 11/25/21 Range/Units 13:18 13:18 13:18 WBC 6.2 (4.8-10.8) X10*3/uL RBC 4.79 (4.20-5.50) X10*6/uL Hgb 13.6 (12.0-16.0) g/dl Hct 41.1 (37.0-47.0) % MCV 85.8 (80.0-98.0) fL MCH 28.4 (27.0-33.0) pg MCHC 33.1 (31.0-35.0) g/dl RDW 12.6 (11.0-16.0) % Plt Count 275 (160-400) X10*3/uL MPV 8.7 L (9.4-12.3) fL Immature Gran % (Auto) 0.8 H (0.0-0.4) % Neut % (Auto) 89.5 H (45-73) % Lymph % (Auto) 4.0 L (20-40) % [place] % (Auto) 3.8 (2-11) % Eos % (Auto) 1.9 (0-4) % Baso % (Auto) 0.0 (0-2) % Lymph # (Auto) 0.3 L (1.2-4.9) X10*3/uL [place] # (Auto) 0.2 (0.1-1.2) X10*3/uL Eos # (Auto) 0.1 (0.0-0.4) X10*3/uL Baso # (Auto) 0.0 (0.0-0.2) X10*3/uL Abs Immat Gran (auto) 0.05 H (0.00-0.03) X10*3/uL Absolute Neuts (auto) 5.6 (2.0-8.3) x10*3/uL Absolute Nucleated RBC 0.000 (0.0-0.012) X10*3/uL Nucleated RBC % (auto) 0.0 (0.0-0.2) /100WBC PT 11.8 (10.0-13.1) SEC INR 1.0 (0.9-1.1) Sodium 135 (135-145) mmol/L Potassium 4.1 (3.3-5.1) mmol/L Chloride 102 (96-108) mmol/L Carbon Dioxide 22 (22-29) mmol/L Anion Gap 15 (12-20) BUN 9 (9-16) mg/dL Creatinine 0.81 (0.5-1.4) mg/dL Estim Creat Clear Calc 93.2 Estimated GFR > 60 Random Glucose 101 (60-115) mg/dL Calcium 9.3 (8.4-10.2) mg/dL Total Bilirubin < 0.2 (0.0-1.0) mg/dL Direct Bilirubin < 0.2 (0.0-0.5) mg/dL AST 17 (5-31) U/L ALT 12 (0-31) U/L Alkaline Phosphatase 104 (39-117) U/L Total Protein 7.5 (6.5-8.0) g/dL Albumin 4.3 (3.5-5.0) g/dL Urine Color Urine Appearance Urine pH (5.0-8.0) Ur Specific [place] (1.005-1.025) Urine Protein (Neg-Trace) mg/dL Urine Glucose (UA) (Negative) mg/dL Urine Ketones (Negative) mg/dL Urine Blood (Negative) Urine Nitrite (Negative) Ur Leukocyte Esterase (Negative) Urine RBC (0-2) /HPF Urine WBC (0-5) /HPF Ur Squamous Epith Cells /HPF Urine Bacteria (None Seen) Hyaline Casts /LPF Urine Test (NEGATIVE) COVID-19 (DENISE) (Negative) COVID-19 Clin Com Influenza Type A (GRACE) (Negative) Influenza Type B (GRACE) (Negative) Influenza A & B Note 11/25/21 Range/Units 13:18 WBC (4.8-10.8) X10*3/uL RBC (4.20-5.50) X10*6/uL Hgb (12.0-16.0) g/dl Hct (37.0-47.0) % MCV (80.0-98.0) fL MCH (27.0-33.0) pg MCHC (31.0-35.0) g/dl RDW (11.0-16.0) % Plt Count (160-400) X10*3/uL MPV (9.4-12.3) fL Immature Gran % (Auto) (0.0-0.4) % Neut % (Auto) (45-73) % Lymph % (Auto) (20-40) % [place] % (Auto) (2-11) % Eos % (Auto) (0-4) % Baso % (Auto) (0-2) % Lymph # (Auto) (1.2-4.9) X10*3/uL [place] # (Auto) (0.1-1.2) X10*3/uL Eos # (Auto) (0.0-0.4) X10*3/uL Baso # (Auto) (0.0-0.2) X10*3/uL Abs Immat Gran (auto) (0.00-0.03) X10*3/uL Absolute Neuts (auto) (2.0-8.3) x10*3/uL Absolute Nucleated RBC (0.0-0.012) X10*3/uL Nucleated RBC % (auto) (0.0-0.2) /100WBC PT (10.0-13.1) SEC INR (0.9-1.1) Sodium (135-145) mmol/L Potassium (3.3-5.1) mmol/L Chloride (96-108) mmol/L Carbon Dioxide (22-29) mmol/L Anion Gap (12-20) BUN (9-16) mg/dL Creatinine (0.5-1.4) mg/dL Estim Creat Clear Calc Estimated GFR Random Glucose (60-115) mg/dL Calcium (8.4-10.2) mg/dL Total Bilirubin (0.0-1.0) mg/dL Direct Bilirubin (0.0-0.5) mg/dL AST (5-31) U/L ALT (0-31) U/L Alkaline Phosphatase (39-117) U/L Total Protein (6.5-8.0) g/dL Albumin (3.5-5.0) g/dL Urine Color Urine Appearance Urine pH (5.0-8.0) Ur Specific [place] (1.005-1.025) Urine Protein (Neg-Trace) mg/dL Urine Glucose (UA) (Negative) mg/dL Urine Ketones (Negative) mg/dL Urine Blood (Negative) Urine Nitrite (Negative) Ur Leukocyte Esterase (Negative) Urine RBC (0-2) /HPF Urine WBC (0-5) /HPF Ur Squamous Epith Cells /HPF Urine Bacteria (None Seen) Hyaline Casts /LPF Urine Test (NEGATIVE) COVID-19 (DENISE) (Negative) COVID-19 Clin Com Influenza Type A (GRACE) Negative (Negative) Influenza Type B (GRACE) Negative (Negative) Influenza A & B Note See Note Imaging Data Chest x-ray: Attestation: I personally reviewed and interpreted this imaging study as follows: Radiologist's impression: EXAMINATION: XR CHEST CLINICAL INFORMATION: Weakness and difficulty breathing COMPARISON: None TECHNIQUE: 2 views of the chest were obtained. FINDINGS: No significant abnormality is noted involving the heart, lungs, mediastinum, bony thorax or soft tissues. XR/XR chest 2V IMPRESSION: Unremarkable examination. Discharge Plan Discharge Clinical Impression: Acute viral syndrome Patient Disposition: Home, Self-Care Instructions: Viral Syndrome (ED) Additional Instructions: Your blood work is reassuring. Your x-ray shows no signs of pneumonia. Your COVID screen and flu screen are negative You likely have a virus Alternate Motrin or Tylenol for pain or fever as needed Increase fluids, rest Return for severe headache, neck pain or stiffness, rash, vomiting Prescriptions: No Action sulfamethoxazole-trimethoprim 200-40 mg/5 mL suspension 20 ml PO BID 7 Days Qty: 280 0RF loratadine 10 mg tablet 10 mg PO DAILY acyclovir 200 mg capsule 800 mg PO DAILY Qty: 360 0RF epinephrine [EpiPen] 0.3 mg/0.3 mL auto-injector 0.3 mg IM Q10M PRN (Reason: anaphylaxis) Qty: 2 0RF Rx Instructions: for 2 doses fluconazole [Diflucan] 150 mg tablet 150 mg PO Q3D Qty: 2 0RF ibuprofen 600 mg tablet 600 mg PO Q8H PRN (Reason: pain) Qty: 20 0RF bupropion HCl [Wellbutrin XL] 150 mg tablet extended release 24 hr 150 mg PO QAM Qty: 30 2RF Referrals: Po,Loan Mota MD [Primary Care Provider] - 5 days Stand Alone Forms: Work/School Release
[2021-11-25 11:42] LABS: Appearance Urine Clear; Color Urine Yellow; Glucose Urine UA Negative (Negative); Leukocyte Esterase Urine Trace (Negative); Nitrite Urine Negative (Negative); PH 6.5 (5.0-8.0); Specific Gravity - Urine 1.025 (1.005-1.025); Urine Blood Negative (Negative); Urine Ketones 15 mg/dL (Negative); Urine Protein Negative (Neg-Trace)
[2021-11-25 11:43] LABS: UPreg QC Valid YES; Urine Pregnancy NEGATIVE (NEGATIVE)
[2021-11-25 11:44] VITALS: BP 105/59; PULSE 101; RESP 18; TEMP 37.4; O2SAT 100
[2021-11-25] MEDS: Acetaminophen 325 MG TABLET 975 MG PO (11:47)
[2021-11-25 12:00] LABS: Bacteria Urine 2+ (None Seen); Hyaline Casts Urine 0-2 /LPF; WBC Urine 0-5 /HPF (0-5)
[2021-11-25 12:57] VITALS: BP 114/70; PULSE 92; RESP 20; TEMP 38.2; O2SAT 90
[2021-11-25] MEDS: Ketorolac Tromethamine 30 MG/ML VIAL IVPUSH (13:21)
[2021-11-25 13:22] LABS: MANUAL DIFF FLAG NO
[2021-11-25] MEDS: 0.9 % Sodium Chloride 1,000 ML 999 ML IV (13:22)
[2021-11-25 13:24] LABS: Eosinophils Absolute Auto 0.1 X10*3/uL (0.0-0.4); Eosinophils Percent Auto 1.9 % (0-4); Hematocrit 41.1 % (37.0-47.0); Hemoglobin 13.6 g/dl (12.0-16.0); Imm Gran Abs Auto 0.05 X10*3/uL (0.00-0.03); Imm Gran Pct Auto 0.8 % (0.0-0.4); Lymphocytes Absolute Auto 0.3 X10*3/uL (1.2-4.9); Mean Corpuscular HGB Conc 33.1 g/dl (31.0-35.0); Mean Corpuscular Hemoglobin 28.4 pg (27.0-33.0); Mean Corpuscular Volume 85.8 fL (80.0-98.0); Mean Platelet Volume 8.7 fL (9.4-12.3); Monocytes Absolute Auto 0.2 X10*3/uL (0.1-1.2); Monocytes Percent Auto 3.8 % (2-11); Neutrophils Absolute Auto 5.6 x10*3/uL (2.0-8.3); Neutrophils Percent Auto 89.5 % (45-73); Platelet Count 275 X10*3/uL (160-400); Red Blood Count 4.79 X10*6/uL (4.20-5.50); Red Cell Distribution Width 12.6 % (11.0-16.0); White Blood Count 6.2 X10*3/uL (4.8-10.8)
[2021-11-25 13:29] LABS: Prothrombin Time 11.8 SEC (10.0-13.1)
[2021-11-25 13:45] LABS: IDNOW Serial# 16C4AD1C; Influenza A Negative (Negative); Influenza B2 Negative (Negative)
[2021-11-25 13:49] LABS: Alanine Aminotransferase 12 U/L (0-31); Albumin Level 4.3 g/dL (3.5-5.0); Alkaline Phosphatase 104 U/L (39-117); Anion Gap 15 (12-20); Aspartate Amino Transferase 17 U/L (5-31); Bilirubin Direct < 0.2 mg/dL (0.0-0.5); Bilirubin Total < 0.2 mg/dL (0.0-1.0); Blood Urea Nitrogen 9 mg/dL (9-16); Calcium 9.3 mg/dL (8.4-10.2); Carbon Dioxide 22 mmol/L (22-29); Chloride 102 mmol/L (96-108); Creatinine Clr Calc Pharmacy 93.2; Estimated Glomerular Filt Rate > 60; Glucose Random 101 mg/dL (60-115); Potassium 4.1 mmol/L (3.3-5.1); Sodium 135 mmol/L (135-145); Total Protein 7.5 g/dL (6.5-8.0)
[2021-11-25 14:44] VITALS: PULSE 104; O2SAT 99
[2021-11-25 15:42] VITALS: BP 104/59; PULSE 83; RESP 18; TEMP 37.2; O2SAT 100
== END 2021-11-25 15:49 | disposition home or self-care (01) ==
PROVIDERS: Nurse Practitioner Family; Emergency Provider Emergency Medicine; PCP Internal Medicine
DX: B34.9 Viral infection, unspecified (principal); R06.02 Shortness of breath; M79.10 Myalgia, unspecified site; Z20.822 Contact with and (suspected) exposure to COVID-19; Z79.899 Other long term (current) drug therapy
CPT/HCPCS: 71046; 80048; 80076; 81001; 81025; 85025; 85610; 87502; 87635; 96374; 99284; J1885

== ENCOUNTER 2021-11-27 11:15 | Emergency (ER) | payer OTHER, SELFPAY ==
--- NOTE | ~2021-11-27 | CT_ITS ---
EXAMINATION: CT ABDOMEN AND PELVIS WITH CONTRAST CLINICAL INFORMATION: Left low back pain, fever COMPARISON: None TECHNIQUE: Multidetector volumetric images were obtained from the superior aspect of the liver through the pubic symphysis following administration 85 mL of Omnipaque 350 intravenous contrast. Sagittal and coronal reformatted images were obtained on the technologist's workstation. Oral contrast: No This CT examination was performed using dose optimization techniques as appropriate, variously including the following: *Automated exposure control *Adjustment of mA and/or kV according to patient size (this includes techniques or standardized protocols for targeted exams where dose is matched to indication/reason for exam; i.e. extremities or head) *Use of iterative reconstruction technique DLP: 712 mGy-cm FINDINGS: LUNG BASES: The visualized lung bases are unremarkable. LIVER, GALLBLADDER, AND BILIARY TREE: The liver is normal in size, shape, and attenuation. No focal hepatic lesion or biliary ductal dilatation is present. The gallbladder is unremarkable with no evidence of radiopaque gallstones, gallbladder wall thickening, or obvious pericholecystic inflammatory changes. PANCREAS: Unremarkable. SPLEEN: Unremarkable. ADRENAL GLANDS: Unremarkable. KIDNEYS AND URETERS: The kidneys are normal in size, shape, and attenuation. No hydronephrosis, hydroureter, or calculi seen. No perinephric stranding. BLADDER: No bladder wall thickening or bladder calculi. GASTROINTESTINAL TRACT: The small and large bowel are unremarkable. The appendix is unremarkable. ABDOMINAL WALL: Tiny fat-containing umbilical hernia. LYMPH NODES: Normal. VASCULAR: Unremarkable. PELVIC VISCERA: Unremarkable CT appearance of the uterus. There is a 2.5 cm left ovarian cyst which is likely physiologic. No free fluid in the pelvis. OSSEOUS STRUCTURES: Unremarkable. CT/CT abdomen pelvis w con IMPRESSION: No CT abnormality to explain the patient's symptoms. Fleischner guidelines were followed.
[2021-11-27 11:18] VITALS: BP 109/73; PULSE 100; RESP 18; TEMP 36.6; O2SAT 98; BMI 34.7
[2021-11-27 11:37] LABS: MANUAL DIFF FLAG NO
[2021-11-27 11:41] LABS: Appearance Urine Clear; Basophils Percent Auto 0.2 % (0-2); Color Urine Yellow; Eosinophils Absolute Auto 0.2 X10*3/uL (0.0-0.4); Eosinophils Percent Auto 3.8 % (0-4); Glucose Urine UA Negative (Negative); Hemoglobin 13.3 g/dl (12.0-16.0); Imm Gran Abs Auto 0.05 X10*3/uL (0.00-0.03); Imm Gran Pct Auto 0.9 % (0.0-0.4); Leukocyte Esterase Urine Trace (Negative); Lymphocytes Absolute Auto 0.7 X10*3/uL (1.2-4.9); Lymphocytes Percent Auto 12.6 % (20-40); Mean Corpuscular HGB Conc 33.3 g/dl (31.0-35.0); Mean Corpuscular Hemoglobin 28.9 pg (27.0-33.0); Mean Corpuscular Volume 86.8 fL (80.0-98.0); Mean Platelet Volume 8.7 fL (9.4-12.3); Monocytes Absolute Auto 0.3 X10*3/uL (0.1-1.2); Monocytes Percent Auto 5.3 % (2-11); Neutrophils Absolute Auto 4.1 x10*3/uL (2.0-8.3); Neutrophils Percent Auto 77.2 % (45-73); Nitrite Urine Negative (Negative); Platelet Count 220 X10*3/uL (160-400); Red Blood Count 4.61 X10*6/uL (4.20-5.50); Red Cell Distribution Width 12.7 % (11.0-16.0); Specific Gravity - Urine <= 1.005 (1.005-1.025); Urine Blood Negative (Negative); Urine Ketones Negative (Negative); Urine Protein Negative (Neg-Trace); White Blood Count 5.3 X10*3/uL (4.8-10.8)
[2021-11-27 11:52] LABS: Anion Gap 14 (12-20); Blood Urea Nitrogen 6 mg/dL (9-16); Calcium 8.7 mg/dL (8.4-10.2); Carbon Dioxide 22 mmol/L (22-29); Chloride 104 mmol/L (96-108); Creatinine Clr Calc Pharmacy 104.8; Estimated Glomerular Filt Rate > 60; Glucose Random 106 mg/dL (60-115); Potassium 3.5 mmol/L (3.3-5.1); Sodium 136 mmol/L (135-145)
[2021-11-27 11:57] LABS: COVID-19 Test Negative (Negative); IDNOW Serial# 16C4AD1C
[2021-11-27 12:00] LABS: RBC Urine 0-2 /HPF (0-2); WBC Urine 0-5 /HPF (0-5)
[2021-11-27 12:01] LABS: Bacteria Urine 2+ (None Seen); Hyaline Casts Urine 0-2 /LPF (0-2); Squamous Epithelial Cell Urine >20 /HPF (0-2)
[2021-11-27 16:12] VITALS: BP 121/75; PULSE 85; RESP 16; TEMP 37.1; O2SAT 99
--- NOTE | 2021-11-27 16:18 | ED_ITS ---
HPI - General Adult General Chief complaint: General Medical Stated complaint: lower back pain, body ache Time Seen by Provider: 11/27/21 16:02 Source: patient Mode of arrival: ambulatory Limitations: no limitations History of Present Illness HPI narrative: This is a 36-year-old female who complains of about 4- 5 days of body aches, fever, lower back pain worse on the left, headache. Patient has had a mild sore throat. She was seen here 2 days ago and had full lab evaluation and chest x- ray which were negative. The patient saw her primary care physician last week and was put on Bactrim for urinary tract infection, though she states she did not have symptoms of UTI. Patient denies any rashes or known tick bite. She has not been hiking or otherwise exposed in the outdoors. She states her body aches are the most prominent symptoms. She does have headache, states her neck feels a little stiff, states the light bothers her eyes sometimes. She denies any shortness of breath or cough. She does have some abdominal soreness, apparently however she has pain in her left lower back, though there is pain on both sides of her back. Related Data Home Medications Medication Instructions Recorded Confirmed loratadine 10 mg tablet 10 mg PO DAILY 11/21/20 08/26/21 Previous Rx's Medication Instructions Recorded acyclovir 200 mg capsule 800 mg PO DAILY #360 caps 03/21/21 epinephrine 0.3 mg/0.3 mL 0.3 mg (0.3 mL) IM Q10M PRN 07/11/21 injection, auto-injector (EpiPen) anaphylaxis #2 ea bupropion HCl 150 mg 24 hr tablet, 150 mg PO QAM #30 tabs 08/26/21 extended release (Wellbutrin XL) fluconazole 150 mg tablet 150 mg PO Q3D 2 doses #2 tabs 09/12/21 (Diflucan) ibuprofen 600 mg tablet 600 mg PO Q8H PRN pain #20 tabs 09/12/21 sulfamethoxazole 200 20 ml PO BID 7 days #280 mL 11/20/21 mg-trimethoprim 40 mg/5 mL oral suspension ibuprofen 600 mg tablet 600 mg PO Q6H PRN fever or pain 11/27/21 #30 tabs tramadol 50 mg tablet 50 - 100 mg PO Q4H PRN pain #20 08/18/22 tabs Allergies Allergy/AdvReac Type Severity Reaction Status Date / Time latex Allergy Unknown rash Verified 11/27/21 11:18 minocycline Allergy Unknown unknown Verified 11/27/21 11:18 shellfish derived AdvReac Unknown Verified 11/27/21 11:18 Review of Systems Review of Systems: Yes all other systems are reviewed and are negative Constitutional: Constitutional: Reports as per HPI, Reports fever(s) and Reports headache(s) Eyes: Eyes: Reports as per HPI and Reports no additional eye complaints ENT: Reports system reviewed and no additional complaints, except as documented, Reports as per HPI, Reports headache(s), Denies nasal congestion, Reports nasal discharge and Reports sore throat Cardiovascular: Cardiovascular: Reports as per HPI, Denies chest pain and Denies dyspnea Respiratory: Respiratory: Reports as per HPI, Denies cough and Denies dyspnea Gastrointestinal: Gastrointestinal: Reports as per HPI, Reports abdominal pain, Denies diarrhea and Denies vomiting Genitourinary: Genitourinary: Reports as per HPI, Denies hematuria, Denies urinary frequency and Denies dysuria Musculoskeletal: Musculoskeletal: Reports no additional musculoskeletal complaints, Reports back pain and Denies numbness Comments: Diffuse muscle aches Integumentary/Breasts: Skin/Breast: Reports as per HPI and Denies rash Neurologic: Reports as per HPI, Reports headache(s), Denies focal weakness and Denies numbness Psychiatric: Psychiatric: Reports no additional psychiatric complaints and Reports as per HPI Endocrine: Endocrine: Reports no additional endocrine complaints and Reports as per HPI Hematologic/Lymphatic: Hematologic/Lymphatic: Reports no additional hematologic/lymphatic complaints, Reports as per HPI and Reports other (No peripheral edema) [facility] Past Medical History Medical History Anxiety and depression Back pain Body aches after vaccination Carpal tunnel syndrome Cellulitis Exposure to COVID-19 virus Fracture of middle phalanx of right ring finger GERD (gastroesophageal reflux disease) Obesity (BMI 30-39.9) Potential exposure to STD Somatic dysfunction of left sacroiliac joint Somatic dysfunction of right sacroiliac joint Vaginal discharge Vitamin D deficiency Surgical History Deficient knowledge of leg surgery Family History Family History Maternal Grandmother Heart disease Hypertension Father No problems noted. Mother Diabetes CVD (cardiovascular disease) Maternal Grandfather Heart disease Hypertension Myocardial infarction Maternal Aunt Ovarian ca Maternal Uncle Diabetes Paternal Uncle Diabetes Social History Social History Housing: House Alcohol intake: current Alcohol intake frequency: 0-2 drinks per day Alcohol type: beer Patient Tobacco Use Status: Never used Tobacco Tobacco use type: Cigarette e-Cigarette/Vaping Use: Never Used Second Hand Smoke Exposure: No Use of substances other than those prescribed or required for medical reasons: No Advance Directives: No Advance Directives Information Provided: No Patient : No service: No Current occupational status: employed Current occupational exposures/hazards: No Gender identity: Female Cognitive needs: No Hearing needs: No Vision needs: No Physical Exam ED Vital Signs: Vital Signs - 24 hr 11/27/21 11:18 11/27/21 16:12 11/27/21 18:41 Temperature 97.9 F 98.7 F 98.7 F Pulse Rate 100 85 81 Respiratory Rate 18 16 16 Blood Pressure 109/73 121/75 95/62 Pulse Oximetry 98 99 97 Oxygen Delivery Method Room Air Room Air Room Air BMI result Body Mass Index 34.7 Medical Decision Making MDM Narrative Medical decision making narrative: Patient with 2nd visit this week for body aches, headache, left flank area pain. Patient seen 2 days ago and was thought to have acute viral syndrome. Patient presents today with similar symptoms, states she has severe aches. Test for t ick-borne illness were added on, though the patient does not recall any tick bite has not had any rash. Patient describes extreme pain especially in her left flank area. The labs were unremarkable, CT scan was done to rule out an unexpected source of pain and fevers the psoas muscle abscess, although the patient did not have worsened pain with movement of her legs. Urinalysis negative. test was negative on last visit 2 days ago. COVID negative. Chest x-ray-2 days ago. CBC and chemistry panel unremarkable. Patient likely has an acute viral syndrome. Will treat with ibuprofen, acetaminophen, tramadol. Lab Data Lab results reviewed: Yes I reviewed the patient's lab results. Result diagrams: 11/27/21 11:31 11/27/21 11:31 Labs: Lab Results 11/27/21 11/27/21 11/27/21 Range/Units 11:31 11:31 11:31 WBC 5.3 (4.8-10.8) X10*3/uL RBC 4.61 (4.20-5.50) X10*6/uL Hgb 13.3 (12.0-16.0) g/dl Hct 40.0 (37.0-47.0) % MCV 86.8 (80.0-98.0) fL MCH 28.9 (27.0-33.0) pg MCHC 33.3 (31.0-35.0) g/dl RDW 12.7 (11.0-16.0) % Plt Count 220 (160-400) X10*3/uL MPV 8.7 L (9.4-12.3) fL Immature Gran % (Auto) 0.9 H (0.0-0.4) % Neut % (Auto) 77.2 H (45-73) % Lymph % (Auto) 12.6 L (20-40) % [place] % (Auto) 5.3 (2-11) % Eos % (Auto) 3.8 (0-4) % Baso % (Auto) 0.2 (0-2) % Lymph # (Auto) 0.7 L (1.2-4.9) X10*3/uL [place] # (Auto) 0.3 (0.1-1.2) X10*3/uL Eos # (Auto) 0.2 (0.0-0.4) X10*3/uL Baso # (Auto) 0.0 (0.0-0.2) X10*3/uL Abs Immat Gran (auto) 0.05 H (0.00-0.03) X10*3/uL Absolute Neuts (auto) 4.1 (2.0-8.3) x10*3/uL Absolute Nucleated RBC 0.000 (0.0-0.012) X10*3/uL Nucleated RBC % (auto) 0.0 (0.0-0.2) /100WBC Sodium 136 (135-145) mmol/L Potassium 3.5 (3.3-5.1) mmol/L Chloride 104 (96-108) mmol/L Carbon Dioxide 22 (22-29) mmol/L Anion Gap 14 (12-20) BUN 6 L (9-16) mg/dL Creatinine 0.72 (0.5-1.4) mg/dL Estim Creat Clear Calc 104.8 Estimated GFR > 60 Random Glucose 106 (60-115) mg/dL Calcium 8.7 D (8.4-10.2) mg/dL Urine Color Urine Appearance Urine pH (5.0-8.0) Ur Specific [place] (1.005-1.025) Urine Protein (Neg-Trace) mg/dL Urine Glucose (UA) (Negative) mg/dL Urine Ketones (Negative) mg/dL Urine Blood (Negative) Urine Nitrite (Negative) Ur Leukocyte Esterase (Negative) Urine RBC (0-2) /HPF Urine WBC (0-5) /HPF Ur Squamous Epith Cells (0-2) /HPF Urine Bacteria (None Seen) Hyaline Casts (0-2) /LPF COVID-19 (DENISE) Negative (Negative) COVID-19 Clin Com See Note 11/27/21 Range/Units 11:31 WBC (4.8-10.8) X10*3/uL RBC (4.20-5.50) X10*6/uL Hgb (12.0-16.0) g/dl Hct (37.0-47.0) % MCV (80.0-98.0) fL MCH (27.0-33.0) pg MCHC (31.0-35.0) g/dl RDW (11.0-16.0) % Plt Count (160-400) X10*3/uL MPV (9.4-12.3) fL Immature Gran % (Auto) (0.0-0.4) % Neut % (Auto) (45-73) % Lymph % (Auto) (20-40) % [place] % (Auto) (2-11) % Eos % (Auto) (0-4) % Baso % (Auto) (0-2) % Lymph # (Auto) (1.2-4.9) X10*3/uL [place] # (Auto) (0.1-1.2) X10*3/uL Eos # (Auto) (0.0-0.4) X10*3/uL Baso # (Auto) (0.0-0.2) X10*3/uL Abs Immat Gran (auto) (0.00-0.03) X10*3/uL Absolute Neuts (auto) (2.0-8.3) x10*3/uL Absolute Nucleated RBC (0.0-0.012) X10*3/uL Nucleated RBC % (auto) (0.0-0.2) /100WBC Sodium (135-145) mmol/L Potassium (3.3-5.1) mmol/L Chloride (96-108) mmol/L Carbon Dioxide (22-29) mmol/L Anion Gap (12-20) BUN (9-16) mg/dL Creatinine (0.5-1.4) mg/dL Estim Creat Clear Calc Estimated GFR Random Glucose (60-115) mg/dL Calcium (8.4-10.2) mg/dL Urine Color Yellow Urine Appearance Clear Urine pH 6.0 (5.0-8.0) Ur Specific [place] <= 1.005 (1.005-1.025) Urine Protein Negative (Neg-Trace) mg/dL Urine Glucose (UA) Negative (Negative) mg/dL Urine Ketones Negative (Negative) mg/dL Urine Blood Negative (Negative) Urine Nitrite Negative (Negative) Ur Leukocyte Esterase Trace H (Negative) Urine RBC 0-2 (0-2) /HPF Urine WBC 0-5 (0-5) /HPF Ur Squamous Epith Cells >20 (0-2) /HPF Urine Bacteria 2+ (None Seen) Hyaline Casts 0-2 (0-2) /LPF COVID-19 (DENISE) (Negative) COVID-19 Clin Com Imaging Data CT abdomen pelvis with IV contrast: Radiologist's impression: IMPRESSION: No CT abnormality to explain the patient's symptoms.? Discharge Plan Discharge Clinical Impression: Acute viral syndrome, Acute left flank pain Patient Disposition: Home, Self-Care Instructions: Viral Syndrome (ED), Flank Pain (ED) Additional Instructions: Use ibuprofen as prescribed. Use tramadol for any uncontrolled pain. You can also use acetaminophen. Follow-up with primary care physician. Prescriptions: New ibuprofen 600 mg tablet 600 mg PO Q6H PRN (Reason: fever or pain) Qty: 30 0RF tramadol 50 mg tablet 50 - 100 mg PO Q4H PRN (Reason: pain) Qty: 20 0RF No Action sulfamethoxazole-trimethoprim 200-40 mg/5 mL suspension 20 ml PO BID 7 Days Qty: 280 0RF loratadine 10 mg tablet 10 mg PO DAILY acyclovir 200 mg capsule 800 mg PO DAILY Qty: 360 0RF epinephrine [EpiPen] 0.3 mg/0.3 mL auto-injector 0.3 mg IM Q10M PRN (Reason: anaphylaxis) Qty: 2 0RF Rx Instructions: for 2 doses fluconazole [Diflucan] 150 mg tablet 150 mg PO Q3D Qty: 2 0RF ibuprofen 600 mg tablet 600 mg PO Q8H PRN (Reason: pain) Qty: 20 0RF bupropion HCl [Wellbutrin XL] 150 mg tablet extended release 24 hr 150 mg PO QAM Qty: 30 2RF Interventions: ED Discharge Assessment Last Done: 11/27/21 19:09
[2021-11-27] MEDS: Acetaminophen 325 MG TABLET 650 MG PO (16:23)
[2021-11-27] MEDS: iohexoL 350 MG/ML 100 ML INFUS..BTL IV (17:31)
[2021-11-27 18:41] VITALS: BP 95/62; PULSE 81; RESP 16; TEMP 37.1; O2SAT 97
[2021-12-01 23:13] LABS: Lyme Abs Screen <0.90 index
[2021-12-03 04:47] LABS: Babesia IgG <1:64 titer (<1:64); Babesia IgM <1:20 titer (<1:20)
[2021-12-03 12:46] LABS: A. Phagocytophilum Ab IgG <1:64 (<1:64); A. Phagocytophilum Ab IgM <1:20 (<1:20); E. Chaffeensis Ab IgG <1:64 (<1:64); E. Chaffeensis Ab IgM <1:20 (<1:20)
== END 2021-11-27 19:09 | disposition home or self-care (01) ==
PROVIDERS: Emergency Provider Emergency Medicine; PCP Internal Medicine
DX: B34.9 Viral infection, unspecified (principal); R10.9 Unspecified abdominal pain; Z20.822 Contact with and (suspected) exposure to COVID-19; J02.9 Acute pharyngitis, unspecified
CPT/HCPCS: 36415; 74177; 80048; 81001; 85025; 86617; 86618; 86666; 86753; 87635; 99284; Q9967

== ENCOUNTER 2021-12-02 10:29 | Outpatient (REF) | payer OTHER, SELFPAY ==
[2021-12-02 11:14] LABS: Estimated Average Glucose 108 mg/dL; Hemoglobin A1c % 5.4 %
[2021-12-02 11:46] LABS: Erythrocyte Sedimentation Rate 5 MM/HR (0-20)
[2021-12-02 11:47] LABS: Alanine Aminotransferase 56 U/L (0-31); Albumin Level 4.4 g/dL (3.5-5.0); Alkaline Phosphatase 81 U/L (39-117); Anion Gap 14 (12-20); Aspartate Amino Transferase 35 U/L (5-31); Bilirubin Total 0.4 mg/dL (0.0-1.0); Blood Urea Nitrogen 9 mg/dL (9-16); C Reactive Protein 0.17 mg/dL (< or = 0.50); Calcium 8.7 mg/dL (8.4-10.2); Carbon Dioxide 27 mmol/L (22-29); Chloride 103 mmol/L (96-108); Estimated Glomerular Filt Rate > 60; Glucose Random 101 mg/dL (60-115); Potassium 4.1 mmol/L (3.3-5.1); Sodium 140 mmol/L (135-145); Total Protein 6.9 g/dL (6.5-8.0)
[2021-12-02 11:51] LABS: HBc Num1 0.08 S/CO (0.00-0.79); HBsAGNum1 0.17 S/CO (0.00-0.99); HIV AB/AG Nonreactive (Nonreactive); HIV Num 1 0.06 S/CO (0.00-0.99); Hepatitis B Core Antibody Nonreactive (Nonreactive); Hepatitis B Surface Antigen Negative (Negative); ~HepC Num1 0.07 S/CO (0.00-0.79); ~Hepatitis B Surface Antibody REACTIVE (Nonreactive); ~Hepatitis C Antibody Nonreactive (Nonreactive)
[2021-12-02 11:54] LABS: Thyroid Stimulating Hormone 3.55 uIU/mL (0.32-4.0); Vitamin D 25-OH Total 37.9 ng/mL (>30)
[2021-12-02 12:00] LABS: Appearance Urine Clear; Color Urine Yellow; Glucose Urine UA Negative (Negative); Leukocyte Esterase Urine Negative (Negative); Nitrite Urine Negative (Negative); Specific Gravity - Urine 1.015 (1.005-1.025); Urine Blood Negative (Negative); Urine Ketones Negative (Negative); Urine Protein Negative (Neg-Trace)
[2021-12-02 12:07] LABS: Folate 15.7 ng/mL (> or = 4.0); Vitamin B12 704 pg/mL (200-900)
[2021-12-02 12:07] LABS: Bacteria Urine None Seen (None Seen); Hyaline Casts Urine 0-2 /LPF (0-2); RBC Urine 0-2 /HPF (0-2); Squamous Epithelial Cell Urine 0-2 /HPF (0-2); WBC Urine 0-5 /HPF (0-5)
== END 2021-12-02 10:30 | disposition home or self-care (01) ==
LOC: HO.LAB 10:29
PROVIDERS: PCP Internal Medicine; Visit Provider Internal Medicine
DX: Z11.4 Encounter for screening for human immunodeficiency virus [HIV] (principal); M79.10 Myalgia, unspecified site; R79.89 Other specified abnormal findings of blood chemistry
CPT/HCPCS: 36415; 80053; 81001; 82306; 82607; 82746; 83036; 84439; 84443; 85652; 86140; 86704; 86706; 86803; 87340; 87389

== ENCOUNTER 2022-01-05 11:12 | Outpatient (REF) | payer OTHER, SELFPAY ==
[2022-01-05 16:05] LABS: CT PCR NOT DETECTED (Not Detect.); NG PCR NOT DETECTED (Not Detect.)
[2022-01-06 11:09] LABS: BV Int Neg Control Negative (Negative); BV Int Pos Control Positive (Positive)
== END 2022-01-05 11:13 | disposition home or self-care (01) ==
LOC: HO.LNP 11:12
PROVIDERS: Visit Provider Advanced Practice Midwife
DX: Z11.3 Encounter for screening for infections with a predominantly sexual mode of transmission (principal)
CPT/HCPCS: 87480; 87491; 87510; 87591; 87660

== ENCOUNTER 2022-04-28 11:07 | Emergency (ER) | payer OTHER, SELFPAY ==
[2022-04-28 11:18] VITALS: BP 124/57; BP 143/68; PULSE 85; PULSE 885; RESP 18; TEMP 37.2; O2SAT 98; O2SAT 99; BMI 40.1
--- NOTE | 2022-04-28 11:27 | ED.ALLEREA ---
HPI - Allergic Reaction General Chief complaint: Allergic Reaction Stated complaint: ?ALLERGIC RXN,RASH,DIFF SWALLOWING,EPI IM GIVEN Source: patient Mode of arrival: ambulatory Limitations: no limitations History of Present Illness HPI narrative: pt presente for possible allergic reaction ,receveid epi prehospital. Arrive awake and alert,no rash no wheezing at this time appear anxious. Per EMS she had facial redness.She was in the dentist office but no ingestion MD complaint: allergic reaction Onset (ago): hour(s) (1) Symptoms: rash Severity: moderate Treatment prior to arrival: epinephrine Related Data Home Medications Medication Instructions Recorded Confirmed loratadine 10 mg tablet 10 mg PO DAILY 11/21/20 01/05/22 Previous Rx's Medication Instructions Recorded epinephrine 0.3 mg/0.3 mL 0.3 mg (0.3 mL) IM Q10M PRN 07/11/21 injection, auto-injector (EpiPen) anaphylaxis #2 ea bupropion HCl 150 mg 24 hr tablet, 150 mg PO QPM #30 tabs 12/02/21 extended release (Wellbutrin XL) norethindrone (contraceptive) 0.35 0.35 mg PO DAILY #84 tabs 01/05/22 mg tablet acyclovir 200 mg capsule 200 mg PO TID #14 caps 04/10/22 cephalexin 500 mg tablet 500 mg PO Q12H 10 days #20 tabs 04/15/22 Allergies Allergy/AdvReac Type Severity Reaction Status Date / Time latex Allergy Unknown rash Verified 04/28/22 11:18 minocycline Allergy Unknown unknown Verified 04/28/22 11:18 shellfish derived AdvReac Unknown Verified 04/28/22 11:18 Review of Systems Constitutional: Constitutional: Reports no additional constitutional complaints ENT: Reports system reviewed and no additional complaints, except as documented Cardiovascular: Cardiovascular: Reports no additional cardiovascular complaints PMFSH Past Medical History Medical History Anxiety and depression Back pain Body aches after vaccination Carpal tunnel syndrome Cellulitis Exposure to COVID-19 virus Fracture of middle phalanx of right ring finger GERD (gastroesophageal reflux disease) Obesity (BMI 30-39.9) Potential exposure to STD Somatic dysfunction of left sacroiliac joint Somatic dysfunction of right sacroiliac joint Vaginal discharge Vitamin D deficiency Surgical History Deficient knowledge of leg surgery Family History Family History Maternal Grandmother Heart disease Hypertension Father No problems noted. Mother Diabetes CVD (cardiovascular disease) Maternal Grandfather Heart disease Hypertension Myocardial infarction Maternal Aunt Ovarian ca Maternal Uncle Diabetes Paternal Uncle Diabetes Social History Social History Housing: House Alcohol intake: current Alcohol intake frequency: 0-2 drinks per day Alcohol type: beer Patient Tobacco Use Status: Never used Tobacco Tobacco use type: Cigarette e-Cigarette/Vaping Use: Never Used Second Hand Smoke Exposure: No Advance Directives: No Advance Directives Information Provided: No service: No Current occupational status: employed Current occupational exposures/hazards: No Gender identity: Female Cognitive needs: No Hearing needs: No Vision needs: No Physical Exam ED Vital Signs: Vital Signs - 24 hr 04/28/22 11:18 Temperature 99.0 F Pulse Rate 85 Respiratory Rate 18 Blood Pressure 124/57 L Pulse Oximetry 99 Oxygen Delivery Method Room Air BMI result Body Mass Index 40.1 Const General: cooperative, comfortable and no acute distress Nutritional Appearance: well nourished Orientation/consciousness: patient oriented x3 HENMT Head: Yes normal to inspection General nose exam: Normal external nose present Face and sinus: Yes normal facial exam Mouth: Normal oral and palatal mucosa present Throat: Yes posterior oropharynx normal Neck Neck: Yes normal visual inspection and Yes full ROM Chest Chest palpation & inspection: normal inspection of the chest Resp Effort & Inspection: normal respiratory effort and symmetric chest movement Auscultation: clear to auscultation bilaterally Cardio Jugular venous distension: no JVD Rate: regular rate Rhythm: regular rhythm GI Inspection: Yes normal to inspection Palpation (GI): Soft to palpation, not firm, nontender and no guarding Percussion: Yes normal to percussion Skin General skin exam: no rashes or lesions noted and elasticity normal Lesions: no lesions Rashes: no rashes Neuro General: patient oriented x3 Course Course Course Narrative: 250 PM reexamined asymptomatic labs wnl ok to d/c and follow up with PCP Medical Decision Making Medical Decision Making MDM Narrative: I am not sure is this is really an allergic reaction ,at arrival no symtoms,no wheezing no rash Differential Diagnosis Differential Diagnoses: The differential diagnosis associated with the presentation includes allergic reaction/anxiety Admission/Observation Consideration of admission/observation: Escalation of care including admission/observation considered Lab Data MDM Lab Attestation statement: I reviewed the patient's lab results. 04/28/22 11:50 04/28/22 11:50 Labs: Lab Results 04/28/22 04/28/22 Range/Units 11:50 11:50 WBC 9.5 (4.8-10.8) X10*3/uL RBC 4.83 (4.20-5.50) X10*6/uL Hgb 13.8 (12.0-16.0) g/dl Hct 41.7 (37.0-47.0) % MCV 86.3 (80.0-98.0) fL MCH 28.6 (27.0-33.0) pg MCHC 33.1 (31.0-35.0) g/dl RDW 12.7 (11.0-16.0) % Plt Count 376 D (160-400) X10*3/uL MPV 8.9 L (9.4-12.3) fL Immature Gran % (Auto) 0.3 (0.0-0.4) % Neut % (Auto) 65.0 (45-73) % Lymph % (Auto) 27.3 (20-40) % [place] % (Auto) 5.7 (2-11) % Eos % (Auto) 1.3 (0-4) % Baso % (Auto) 0.4 (0-2) % Lymph # (Auto) 2.6 (1.2-4.9) X10*3/uL [place] # (Auto) 0.5 (0.1-1.2) X10*3/uL Eos # (Auto) 0.1 (0.0-0.4) X10*3/uL Baso # (Auto) 0.0 (0.0-0.2) X10*3/uL Abs Immat Gran (auto) 0.03 (0.00-0.03) X10*3/uL Absolute Neuts (auto) 6.2 (2.0-8.3) x10*3/uL Absolute Nucleated RBC 0.000 (0.0-0.012) X10*3/uL Nucleated RBC % (auto) 0.0 (0.0-0.2) /100WBC Sodium 138 (135-145) mmol/L Potassium 3.5 (3.3-5.1) mmol/L Chloride 105 (96-108) mmol/L Carbon Dioxide 21 L (22-29) mmol/L Anion Gap 16 (12-20) BUN 15 (9-16) mg/dL Creatinine 0.78 (0.5-1.4) mg/dL Estim Creat Clear Calc 99.8 Estimated GFR > 60 Random Glucose 147 H (60-115) mg/dL Calcium 9.7 D (8.4-10.2) mg/dL Total Bilirubin 0.4 (0.0-1.0) mg/dL AST 14 (5-31) U/L ALT 12 (0-31) U/L Alkaline Phosphatase 104 (39-117) U/L Total Protein 7.4 (6.5-8.0) g/dL Albumin 4.3 (3.5-5.0) g/dL Beta HCG, Quant < 2 mIU/mL Discharge Plan Discharge Clinical Impression: Allergic reaction Patient Disposition: Home, Self-Care Instructions: General Allergic Reaction (ED) Additional Inst[facility] if worse Prescriptions: No Action acyclovir 200 mg capsule 200 mg PO TID Qty: 14 0RF cephalexin 500 mg tablet 500 mg PO Q12H 10 Days Qty: 20 0RF loratadine 10 mg tablet 10 mg PO DAILY epinephrine [EpiPen] 0.3 mg/0.3 mL auto-injector 0.3 mg IM Q10M PRN (Reason: anaphylaxis) Qty: 2 0RF Rx Instructions: for 2 doses bupropion HCl [Wellbutrin XL] 150 mg tablet extended release 24 hr 150 mg PO QPM Qty: 30 2RF norethindrone (contraceptive) 0.35 mg tablet 0.35 mg PO DAILY Qty: 84 3RF Referrals: Po,Loan Mota MD [Primary Care Provider] - Stand Alone Forms: Work/School Release Interventions: ED Discharge Assessment Last Done: 04/28/22 15:20 Discharge Date/Time: 04/28/22 15:21
[2022-04-28 11:56] LABS: MANUAL DIFF FLAG NO
[2022-04-28 12:02] LABS: Basophils Percent Auto 0.4 % (0-2); Eosinophils Absolute Auto 0.1 X10*3/uL (0.0-0.4); Eosinophils Percent Auto 1.3 % (0-4); Hematocrit 41.7 % (37.0-47.0); Hemoglobin 13.8 g/dl (12.0-16.0); Imm Gran Abs Auto 0.03 X10*3/uL (0.00-0.03); Imm Gran Pct Auto 0.3 % (0.0-0.4); Lymphocytes Absolute Auto 2.6 X10*3/uL (1.2-4.9); Lymphocytes Percent Auto 27.3 % (20-40); Mean Corpuscular HGB Conc 33.1 g/dl (31.0-35.0); Mean Corpuscular Hemoglobin 28.6 pg (27.0-33.0); Mean Corpuscular Volume 86.3 fL (80.0-98.0); Mean Platelet Volume 8.9 fL (9.4-12.3); Monocytes Absolute Auto 0.5 X10*3/uL (0.1-1.2); Monocytes Percent Auto 5.7 % (2-11); Neutrophils Absolute Auto 6.2 x10*3/uL (2.0-8.3); Platelet Count 376 X10*3/uL (160-400); Red Blood Count 4.83 X10*6/uL (4.20-5.50); Red Cell Distribution Width 12.7 % (11.0-16.0); White Blood Count 9.5 X10*3/uL (4.8-10.8)
[2022-04-28 12:20] LABS: Alanine Aminotransferase 12 U/L (0-31); Albumin Level 4.3 g/dL (3.5-5.0); Alkaline Phosphatase 104 U/L (39-117); Anion Gap 16 (12-20); Aspartate Amino Transferase 14 U/L (5-31); Bilirubin Total 0.4 mg/dL (0.0-1.0); Blood Urea Nitrogen 15 mg/dL (9-16); Calcium 9.7 mg/dL (8.4-10.2); Carbon Dioxide 21 mmol/L (22-29); Chloride 105 mmol/L (96-108); Creatinine Clr Calc Pharmacy 99.8; Estimated Glomerular Filt Rate > 60; Glucose Random 147 mg/dL (60-115); Potassium 3.5 mmol/L (3.3-5.1); Sodium 138 mmol/L (135-145); Total Protein 7.4 g/dL (6.5-8.0)
[2022-04-28 12:23] LABS: HCG Quantitative < 2 mIU/mL
== END 2022-04-28 15:21 | disposition home or self-care (01) ==
PROVIDERS: Emergency Provider Emergency Medicine; PCP Internal Medicine
DX: L50.0 Allergic urticaria (principal); Z79.899 Other long term (current) drug therapy
CPT/HCPCS: 36415; 80053; 84702; 85025; 99283

== ENCOUNTER 2022-05-21 08:10 | Outpatient (REF) | payer OTHER, SELFPAY ==
--- NOTE | ~2022-05-21 | XR_ITS ---
EXAMINATION: CERVICAL SPINE 3 VIEWS CLINICAL INFORMATION: Neck pain. COMPARISON: Radiographs dated 06/04/2011. TECHNIQUE: Frontal, odontoid, bilateral oblique and lateral views are obtained. FINDINGS: Vertebral body heights and alignment are normal. The disc spaces are well-maintained. No acute fracture or spondylolisthesis is seen. The posterior elements are intact. The bilateral neural foramina appear patent. There is no prevertebral soft tissue swelling. The dens and C7-T1 interface are normal. XR/XR cervical spine min 6V IMPRESSION: Negative examination. EXAMINATION: XR LUMBOSACRAL SPINE CLINICAL INFORMATION: Lower back pain. COMPARISON: None TECHNIQUE: AP and lateral views of the lumbar spine and lateral view of the lumbosacral junction. FINDINGS: The vertebral bodies and posterior elements are normal. The disc spaces are preserved and the vertebral alignment is normal. There is minimal anterior spondylosis at L4-L5. The paraspinal soft tissues are normal. IMPRESSION: 1. No acute fracture or spondylolisthesis is seen. 2. The lumbar disc spaces are well-maintained. 3. There is minimal anterior spondylosis at L4-L5.
--- NOTE | ~2022-05-21 | XR_ITS ---
EXAMINATION: CERVICAL SPINE 3 VIEWS CLINICAL INFORMATION: Neck pain. COMPARISON: Radiographs dated 06/04/2011. TECHNIQUE: Frontal, odontoid, bilateral oblique and lateral views are obtained. FINDINGS: Vertebral body heights and alignment are normal. The disc spaces are well-maintained. No acute fracture or spondylolisthesis is seen. The posterior elements are intact. The bilateral neural foramina appear patent. There is no prevertebral soft tissue swelling. The dens and C7-T1 interface are normal. XR/XR lumbar spine 2-3V IMPRESSION: Negative examination. EXAMINATION: XR LUMBOSACRAL SPINE CLINICAL INFORMATION: Lower back pain. COMPARISON: None TECHNIQUE: AP and lateral views of the lumbar spine and lateral view of the lumbosacral junction. FINDINGS: The vertebral bodies and posterior elements are normal. The disc spaces are preserved and the vertebral alignment is normal. There is minimal anterior spondylosis at L4-L5. The paraspinal soft tissues are normal. IMPRESSION: 1. No acute fracture or spondylolisthesis is seen. 2. The lumbar disc spaces are well-maintained. 3. There is minimal anterior spondylosis at L4-L5.
== END 2022-05-21 08:11 | disposition home or self-care (01) ==
LOC: HO.XRAY 08:10
PROVIDERS: Absent Provider Chiropractor; PCP Internal Medicine; Visit Provider Internal Medicine
DX: M54.2 Cervicalgia (principal); M54.50 Low back pain, unspecified
CPT/HCPCS: 72052; 72100

== ENCOUNTER 2022-05-22 13:46 | Outpatient (REF) | payer OTHER, SELFPAY ==
[2022-05-22 13:59] LABS: MANUAL DIFF FLAG NO
[2022-05-22 14:49] LABS: Basophils Percent Auto 0.4 % (0-2); Eosinophils Absolute Auto 0.1 X10*3/uL (0.0-0.4); Eosinophils Percent Auto 0.6 % (0-4); Hematocrit 40.9 % (37.0-47.0); Hemoglobin 13.5 g/dl (12.0-16.0); Imm Gran Abs Auto 0.03 X10*3/uL (0.00-0.03); Imm Gran Pct Auto 0.3 % (0.0-0.4); Lymphocytes Percent Auto 21.7 % (20-40); Mean Corpuscular Hemoglobin 28.6 pg (27.0-33.0); Mean Corpuscular Volume 86.7 fL (80.0-98.0); Mean Platelet Volume 8.8 fL (9.4-12.3); Monocytes Absolute Auto 0.8 X10*3/uL (0.1-1.2); Monocytes Percent Auto 8.9 % (2-11); Neutrophils Absolute Auto 6.3 x10*3/uL (2.0-8.3); Neutrophils Percent Auto 68.1 % (45-73); Platelet Count 359 X10*3/uL (160-400); Red Blood Count 4.72 X10*6/uL (4.20-5.50); Red Cell Distribution Width 12.7 % (11.0-16.0); White Blood Count 9.3 X10*3/uL (4.8-10.8)
[2022-05-22 15:07] LABS: Appearance Urine Clear; Color Urine Yellow; Glucose Urine UA Negative (Negative); Leukocyte Esterase Urine Negative (Negative); Nitrite Urine Negative (Negative); PH 8.5 (5.0-9.0); Specific Gravity - Urine 1.025 (1.005-1.025); Urine Blood Negative (Negative); Urine Ketones Negative (Negative); Urine Protein Trace mg/dL (Neg-Trace)
[2022-05-22 15:08] LABS: Estimated Average Glucose 103 mg/dL; Hemoglobin A1c % 5.2 %
[2022-05-22 15:12] LABS: Bacteria Urine Trace (None Seen); Hyaline Casts Urine 0-2 /LPF (0-2); RBC Urine 0-2 /HPF (0-2); Squamous Epithelial Cell Urine 0-2 /HPF (0-2); WBC Urine 0-5 /HPF (0-5)
== END 2022-05-22 13:47 | disposition home or self-care (01) ==
LOC: HO.LAB 13:46
PROVIDERS: PCP Internal Medicine; Visit Provider Internal Medicine
DX: R73.9 Hyperglycemia, unspecified (principal); E78.00 Pure hypercholesterolemia, unspecified; B00.1 Herpesviral vesicular dermatitis
CPT/HCPCS: 36415; 81001; 82785; 83036; 85025; 86003

== ENCOUNTER 2022-07-15 12:55 | Outpatient (REF) | payer OTHER, SELFPAY ==
--- NOTE | ~2022-07-15 | MR_ITS ---
EXAMINATION: MR HEAD/BRAIN WITHOUT CONTRAST CLINICAL INFORMATION: Syncope, collapse. COMPARISON: Prior studies: 05/01/2019 CT brain TECHNIQUE: Multiplanar multisequence MR imaging of the brain was done without IV contrast. FINDINGS: Brain Volume: Within normal limits within the limitations of qualitative assessment. Structural: No malformations. Brain and Meninges: DWI sequence demonstrates no restricted diffusion to suggest acute or subacute cerebral ischemia. The brain parenchyma is normal in morphology and signal intensity.?[place]-white matter interface is preserved. No extra-axial fluid collections, space-occupying process or mass effect are identified. Gradient refocused imaging demonstrates no abnormal susceptibility-weighted signal loss to suggest hemorrhage, hemosiderin staining or abnormal mineralization. Ventricles and Subarachnoid Spaces: The ventricular system and subarachnoid spaces are within normal range; there is no hydrocephalus. Orbital Structures: The visualized orbital structures are grossly unremarkable within the limitations of the study. Vascular: Signal voids are noted in the visualized major intracranial vessels. Osseous Structures, Sinuses/Mastoids, Extracranial Soft Tissues: Minor mucosal thickening in the ethmoid complex with a small retention cyst along the roof of the right maxillary sinus. Visualized extra cranial soft tissue structures appear grossly unremarkable. Bony structures appear intact. Note is made of some T1 shortening in the left petrous apex with some adjacent foci of fluid signal suggesting retained secretions in the left petrous apex air cells. Cannot entirely exclude the possibility of a small cholesterol granuloma. Recommend a follow-up CT of the temporal bones. MR/MR head/brain wo con IMPRESSION: 1. Normal MRI of the brain without contrast. 2. Question of a small cholesterol granuloma versus retained secretions in the left petrous apex air cells. Recommend follow-up CT of the temporal bones.
== END 2022-07-15 12:56 | disposition home or self-care (01) ==
LOC: HO.MRI 12:55
PROVIDERS: PCP Internal Medicine; Visit Provider Psychiatry & Neurology Neurology
DX: R55 Syncope and collapse (principal)
CPT/HCPCS: 70551

== ENCOUNTER 2022-08-20 09:06 | Outpatient (REF) | payer OTHER, SELFPAY ==
[2022-08-22 06:43] LABS: HPV mRNA E6/E7 rflx Not Detected (Not Detected)
== END 2022-08-20 09:07 | disposition home or self-care (01) ==
LOC: HO.LNP 09:06
PROVIDERS: PCP Internal Medicine; Visit Provider Advanced Practice Midwife
DX: Z12.4 Encounter for screening for malignant neoplasm of cervix (principal); Z11.51 Encounter for screening for human papillomavirus (HPV)
CPT/HCPCS: 87624; 88142

== ENCOUNTER 2022-08-20 10:18 | Outpatient (REF) | payer OTHER, SELFPAY ==
[2022-08-20 12:02] LABS: Alanine Aminotransferase 16 U/L (0-31); Albumin Level 4.1 g/dL (3.5-5.0); Alkaline Phosphatase 102 U/L (39-117); Anion Gap 12 (12-20); Aspartate Amino Transferase 18 U/L (5-31); Bilirubin Total 0.4 mg/dL (0.0-1.0); Blood Urea Nitrogen 10 mg/dL (9-16); Calcium 9.6 mg/dL (8.4-10.2); Carbon Dioxide 25 mmol/L (22-29); Chloride 105 mmol/L (96-108); Cholesterol 158 mg/dL; Estimated Glomerular Filt Rate > 60; Glucose Random 101 mg/dL (60-115); HDL Cholesterol 47 mg/dL; LDL Cholesterol Calculated 99 mg/dl; Potassium 3.9 mmol/L (3.3-5.1); Sodium 138 mmol/L (135-145); Total Protein 6.9 g/dL (6.5-8.0); Triglycerides 63 mg/dL
[2022-08-20 12:38] LABS: Free T4 (Free Thyroxine) 0.95 ng/dL (0.71-1.85); Vitamin B12 478 pg/mL (200-900); Vitamin D 25-OH Total 24.4 ng/mL (>30)
[2022-08-20 15:09] LABS: CT PCR NOT DETECTED (Not Detect.); NG PCR NOT DETECTED (Not Detect.)
[2022-08-21 08:41] LABS: Syphilis Screen Nonreactive (Nonreactive)
[2022-08-21 09:18] LABS: HBsAGNum1 0.31 S/CO (0.00-0.99); HIV AB/AG Nonreactive (Nonreactive); HIV Num 1 0.07 S/CO (0.00-0.99); Hepatitis B Surface Antigen Negative (Negative); ~HepC Num1 0.08 S/CO (0.00-0.79); ~Hepatitis C Antibody Nonreactive (Nonreactive)
[2022-08-21 11:19] LABS: BV Int Neg Control Negative (Negative); BV Int Pos Control Positive (Positive)
[2022-08-22 07:29] LABS: DHEA Sulfate 230 mcg/dL (19-237); Follicle Stimulating Hormone 3.2 mIU/mL; Lutenizing Hormone 7.2 mIU/mL
[2022-08-29 21:13] LABS: Estradiol Free 3.12 pg/mL; Estradiol, Ultrasensitive 149 pg/mL
== END 2022-08-20 10:19 | disposition home or self-care (01) ==
LOC: HO.LAB 10:18
PROVIDERS: Absent Provider Advanced Practice Midwife; PCP Internal Medicine; Visit Provider Internal Medicine
DX: Z11.4 Encounter for screening for human immunodeficiency virus [HIV] (principal); L68.0 Hirsutism; N95.1 Menopausal and female climacteric states; E66.9 Obesity, unspecified; E78.00 Pure hypercholesterolemia, unspecified; R73.9 Hyperglycemia, unspecified; Z87.42 Personal history of other diseases of the female genital tract; Z20.2 Contact with and (suspected) exposure to infections with a predominantly sexual mode of transmission; E55.9 Vitamin D deficiency, unspecified
CPT/HCPCS: 0353U; 36415; 80053; 80061; 82306; 82607; 82627; 82670; 82681; 82746; 83001; 83002; 84439; 84443; 86780; 86803; 87340; 87389; 87480; 87510; 87660

== ENCOUNTER 2022-09-14 10:30 | Outpatient (REF) | payer OTHER, SELFPAY ==
[2022-09-14 13:45] LABS: CT PCR NOT DETECTED (Not Detect.); NG PCR NOT DETECTED (Not Detect.)
[2022-09-15 08:54] LABS: BV Int Neg Control Negative (Negative); BV Int Pos Control Positive (Positive)
== END 2022-09-14 10:31 | disposition home or self-care (01) ==
LOC: HO.LNP 10:30
PROVIDERS: PCP Internal Medicine; Visit Provider Advanced Practice Midwife
DX: N89.8 Other specified noninflammatory disorders of vagina (principal); B37.31 Acute candidiasis of vulva and vagina; Z20.2 Contact with and (suspected) exposure to infections with a predominantly sexual mode of transmission
CPT/HCPCS: 0353U; 87480; 87510; 87660

== ENCOUNTER 2022-09-24 04:44 | Emergency (ER) | payer OTHER, SELFPAY ==
--- NOTE | ~2022-09-24 | CT_ITS ---
EXAMINATION: CT ABDOMEN AND PELVIS WITH CONTRAST CLINICAL INFORMATION: Mid abdominal pain. Question acute appendicitis. COMPARISON: 11/27/2021 TECHNIQUE: Multidetector volumetric images were obtained from the superior aspect of the liver through the pubic symphysis following administration 85 mL of Omnipaque 350 intravenous contrast. Sagittal and coronal reformatted images were obtained on the technologist's workstation. Oral contrast: No This CT examination was performed using dose optimization techniques as appropriate, variously including the following: *Automated exposure control *Adjustment of mA and/or kV according to patient size (this includes techniques or standardized protocols for targeted exams where dose is matched to indication/reason for exam; i.e. extremities or head) *Use of iterative reconstruction technique DLP: 720 mGy-cm FINDINGS: LUNG BASES: The visualized lung bases are unremarkable. LIVER, GALLBLADDER, AND BILIARY TREE: The liver is normal in size, shape, and attenuation. No focal hepatic lesion or biliary ductal dilatation is present. The gallbladder is unremarkable with no evidence of radiopaque gallstones, gallbladder wall thickening, or obvious pericholecystic inflammatory changes. PANCREAS: Unremarkable. SPLEEN: Unremarkable. ADRENAL GLANDS: Unremarkable. KIDNEYS AND URETERS: The kidneys are normal in size, shape, and attenuation. No hydronephrosis, hydroureter, or calculi seen. No perinephric stranding. BLADDER: Unremarkable. GASTROINTESTINAL TRACT: The stomach is unremarkable. Normal caliber of the small bowel. There is no obstruction. Mild wall thickening at the terminal ileum noted. Normal diminutive appendix. No colonic wall thickening. No free air. Trace pelvic free fluid which may be physiologic. ABDOMINAL WALL: No significant hernia is appreciated. LYMPH NODES: Normal. VASCULAR: Unremarkable. PELVIC VISCERA: The uterus and adnexa are unremarkable. OSSEOUS STRUCTURES: No acute or suspicious osseous abnormality. CT/CT abdomen pelvis w IV con IMPRESSION: Normal appendix. Mild wall thickening of the terminal ileum, suggestive of mild ileitis. This could be infectious or inflammatory. Fleischner guidelines were followed.
[2022-09-24 04:52] VITALS: BP 112/67; PULSE 100; RESP 18; TEMP 36.9; O2SAT 98; BMI 36.8
[2022-09-24 05:11] LABS: Basophils Percent Auto 0.3 % (0-2); Eosinophils Percent Auto 0.3 % (0-4); Hematocrit 38.8 % (37.0-47.0); Hemoglobin 12.9 g/dl (12.0-16.0); Imm Gran Abs Auto 0.02 X10*3/uL (0.00-0.03); Imm Gran Pct Auto 0.2 % (0.0-0.4); Lymphocytes Absolute Auto 0.4 X10*3/uL (1.2-4.9); Lymphocytes Percent Auto 4.3 % (20-40); MANUAL DIFF FLAG NO; Mean Corpuscular HGB Conc 33.2 g/dl (31.0-35.0); Mean Corpuscular Hemoglobin 28.4 pg (27.0-33.0); Mean Corpuscular Volume 85.5 fL (80.0-98.0); Mean Platelet Volume 8.9 fL (9.4-12.3); Monocytes Absolute Auto 0.7 X10*3/uL (0.1-1.2); Monocytes Percent Auto 7.3 % (2-11); Neutrophils Absolute Auto 8.1 x10*3/uL (2.0-8.3); Neutrophils Percent Auto 87.6 % (45-73); Platelet Count 288 X10*3/uL (160-400); Red Blood Count 4.54 X10*6/uL (4.20-5.50); Red Cell Distribution Width 12.8 % (11.0-16.0); White Blood Count 9.2 X10*3/uL (4.8-10.8)
--- NOTE | 2022-09-24 05:17 | ED_ITS ---
HPI - Abdominal Pain General Chief Complaint: Abdominal Pain Stated Complaint: abd pain Time Seen by Provider: 09/24/22 05:16 Source: patient Mode of arrival: ambulatory Limitations: no limitations History of Present Illness HPI narrative: Patient otherwise healthy had dinner last night within 1 hour of eating food which had fish started having diffuse abdominal pain more on umbilical area and followed by multiple episodes of vomiting and few episodes of loose stools. Patient still complaining of umbilical pain. No fever no chills no urine symptoms Related Data Previous Rx's Medication Instructions Recorded epinephrine 0.3 mg/0.3 mL 0.3 mg (0.3 mL) IM Q10M PRN 07/11/21 injection, auto-injector (EpiPen) anaphylaxis #2 ea acyclovir 200 mg capsule 400 mg PO BID 90 days #360 caps 05/05/22 fluconazole 150 mg tablet 150 mg PO Q3D 2 doses #2 tabs 09/14/22 ondansetron 4 mg disintegrating 4 mg PO Q6-8H PRN nausea and 09/24/22 tablet vomiting #10 tabs Allergies Allergy/AdvReac Type Severity Reaction Status Date / Time latex Allergy Unknown rash Verified 09/24/22 06:10 minocycline Allergy Unknown unknown Verified 09/24/22 06:10 shellfish derived AdvReac Unknown Verified 09/24/22 06:10 Review of Systems Review of Systems Yes all other systems are reviewed and are negative PMFSH Past Medical History Medical History Annual physical exam Back pain BCP ( control pills) initiation Body aches after vaccination Carpal tunnel syndrome Cellulitis Cervical cancer screening Cholesterol granuloma Depression Exposure to COVID-19 virus Fracture of middle phalanx of right ring finger GERD (gastroesophageal reflux disease) History of vaginal pruritus Hypersomnia Labial pain Myalgia Obesity (BMI 30-39.9) Potential exposure to STD Recurrent cold sores Retained placenta after delivery without hemorrhage but with other complication Screen for sexually transmitted diseases Screening due Somatic dysfunction of left sacroiliac joint Somatic dysfunction of right sacroiliac joint Surveillance for control, oral contraceptives Urinary frequency Vaginal discharge Vaginal discharge Vaginal pruritus Vitamin D deficiency Well woman exam with routine gynecological exam Surgical History Deficient knowledge of leg surgery Family History Family History Maternal Grandmother Heart disease Hypertension Father No problems noted. Mother Diabetes CVD (cardiovascular disease) Maternal Grandfather Heart disease Hypertension Myocardial infarction Maternal Aunt Ovarian ca Maternal Uncle Diabetes Paternal Uncle Diabetes Social History Social History Housing: House Alcohol intake: current Alcohol intake frequency: 0-2 drinks per day Alcohol type: beer Patient Tobacco Use Status: Never used Tobacco Smoked in Last 30 Days: No e-Cigarette/Vaping Use: Never Used Second Hand Smoke Exposure: No Use of substances other than those prescribed or required for medical reasons: No Advance Directives: No Advance Directives Information Provided: Yes service: No Current occupational status: employed Current occupational exposures/hazards: No Gender identity: Female Cognitive needs: No Hearing needs: No Vision needs: No Physical Exam ED Vital Signs: Vital Signs - 24 hr 09/24/22 04:52 09/24/22 06:00 Temperature 98.5 F 99.3 F Pulse Rate 100 86 Respiratory Rate 18 16 Blood Pressure 112/67 111/67 Pulse Oximetry 98 96 Oxygen Delivery Method Room Air Room Air BMI result Body Mass Index 36.8 Appearance: Alert. Oriented X3. Mild distress Eyes: No pallor or icterus ENT: Pharynx normal. Oral Mucosa moist Neck: Normal inspection. Neck supple. CVS: Normal heart rate and rhythm. Pulses normal. Respiratory: No respiratory distress. Equal air entry bilateral, no wheezing/rales/rhonchi Abdomen: Soft diffuse tenderness no rebound tenderness no significant tenderness in right lower quadrant, Bowel sounds are present, no mass palpable, no CVA tenderness Skin: Skin warm and dry. Normal skin color. Normal skin turgor. Extremities: No lower extremity edema. No calf tenderness Neuro: Oriented X 3. Medical Decision Making Medical Decision Making [facility] Narrative: Patient with acute onset of mid abdominal pain radiating to whole abdomen with multiple episodes of vomiting and diarrhea likely gastroenteritis patient received IV fluids and is still having the pain in the mid abdomen area white counts are normal CRP slightly elevated will do CT abdomen to rule out acute appendicitis which is a possibility although patient does not have tenderness at McBurney point patient signed out to Dr. Cm pending CT scan results and evaluation Differential Diagnosis Acute appendicitis/gastroenteritis/food poisoning Lab Data [facility] Lab Attestation statement: I reviewed the patient's lab results. 09/24/22 05:06 09/24/22 05:06 Labs: Lab Results 09/24/22 09/24/22 Range/Units 05:06 05:06 WBC 9.2 (4.8-10.8) X10*3/uL RBC 4.54 (4.20-5.50) X10*6/uL Hgb 12.9 (12.0-16.0) g/dl Hct 38.8 (37.0-47.0) % MCV 85.5 (80.0-98.0) fL MCH 28.4 (27.0-33.0) pg MCHC 33.2 (31.0-35.0) g/dl RDW 12.8 (11.0-16.0) % Plt Count 288 (160-400) X10*3/uL MPV 8.9 L (9.4-12.3) fL Immature Gran % (Auto) 0.2 (0.0-0.4) % Neut % (Auto) 87.6 H (45-73) % Lymph % (Auto) 4.3 L (20-40) % [place] % (Auto) 7.3 (2-11) % Eos % (Auto) 0.3 (0-4) % Baso % (Auto) 0.3 (0-2) % Lymph # (Auto) 0.4 L (1.2-4.9) X10*3/uL [place] # (Auto) 0.7 (0.1-1.2) X10*3/uL Eos # (Auto) 0.0 (0.0-0.4) X10*3/uL Baso # (Auto) 0.0 (0.0-0.2) X10*3/uL Abs Immat Gran (auto) 0.02 (0.00-0.03) X10*3/uL Absolute Neuts (auto) 8.1 (2.0-8.3) x10*3/uL Absolute Nucleated RBC 0.000 (0.0-0.012) X10*3/uL Nucleated RBC % (auto) 0.0 (0.0-0.2) /100WBC Sodium 137 (135-145) mmol/L Potassium 3.8 (3.3-5.1) mmol/L Chloride 104 (96-108) mmol/L Carbon Dioxide 22 (22-29) mmol/L Anion Gap 15 (12-20) BUN 11 (9-16) mg/dL Creatinine 0.68 (0.5-1.4) mg/dL Estim Creat Clear Calc 113.4 Estimated GFR > 60 Random Glucose 141 H (60-115) mg/dL Calcium 8.9 D (8.4-10.2) mg/dL Total Bilirubin 0.6 (0.0-1.0) mg/dL Direct Bilirubin 0.2 (0.0-0.5) mg/dL AST 20 (5-31) U/L ALT 13 (0-31) U/L Alkaline Phosphatase 87 (39-117) U/L C-Reactive Protein 1.07 H (< or = 0.50) mg/dL Total Protein 7.2 (6.5-8.0) g/dL Albumin 3.9 (3.5-5.0) g/dL Lipase 16 (8-78) U/L Medications Administered Discontinued Medications Generic Name Dose Route Start Last Admin Trade Name Freq PRN Reason Stop Dose Admin Sodium Chloride 1,000 mls @ 999 mls/hr 09/24/22 05:35 09/24/22 06:05 Ns IV 09/24/22 06:35 999 mls/hr .Q1H1M ONE Administration Ketorolac Tromethamine 30 mg 09/24/22 05:35 09/24/22 06:05 Ketorolac Tromethamine 30 Mg/Ml Vial IVPUSH 09/24/22 05:36 30 mg ONCE ONE Administration Ondansetron HCl 4 mg 09/24/22 05:35 09/24/22 06:05 Ondansetron Hcl 4 Mg/2 Ml Vial IVPUSH 09/24/22 05:36 4 mg ONCE ONE Administration Discharge Plan Discharge Clinical Impression: Gastroenteritis Patient Disposition: Still a Patient Instructions: Gastroenteritis (ED) Additional Instructions: Drink plenty of fluids Med for nausea as prescribed Follow with PCP Report to ER if not better Prescriptions: New ondansetron 4 mg tablet,disintegrating 4 mg PO Q6-8H PRN (Reason: nausea and vomiting) Qty: 10 0RF No Action acyclovir 200 mg capsule 400 mg PO BID 90 Days Qty: 360 0RF epinephrine [EpiPen] 0.3 mg/0.3 mL auto-injector 0.3 mg IM Q10M PRN (Reason: anaphylaxis) Qty: 2 0RF Rx Instructions: for 2 doses fluconazole 150 mg tablet 150 mg PO Q3D 0 Days Qty: 2 4RF Rx Instructions: may repeat second dose 72 hrs after first dose if symptoms persist/ May use p.r.n. for severe yeast infection symptoms.
[2022-09-24 05:25] LABS: Alanine Aminotransferase 13 U/L (0-31); Albumin Level 3.9 g/dL (3.5-5.0); Alkaline Phosphatase 87 U/L (39-117); Anion Gap 15 (12-20); Aspartate Amino Transferase 20 U/L (5-31); Bilirubin Direct 0.2 mg/dL (0.0-0.5); Bilirubin Total 0.6 mg/dL (0.0-1.0); Blood Urea Nitrogen 11 mg/dL (9-16); Calcium 8.9 mg/dL (8.4-10.2); Carbon Dioxide 22 mmol/L (22-29); Chloride 104 mmol/L (96-108); Creatinine Clr Calc Pharmacy 113.4; Estimated Glomerular Filt Rate > 60; Glucose Random 141 mg/dL (60-115); Lipase 16 U/L (8-78); Potassium 3.8 mmol/L (3.3-5.1); Sodium 137 mmol/L (135-145); Total Protein 7.2 g/dL (6.5-8.0)
[2022-09-24 05:59] LABS: C Reactive Protein 1.07 mg/dL (< or = 0.50)
[2022-09-24 06:00] VITALS: BP 111/67; PULSE 86; RESP 16; TEMP 37.4; O2SAT 96
[2022-09-24] MEDS: ondansetron HCL 4 MG/2 ML VIAL IVPUSH (06:05)
[2022-09-24] MEDS: 0.9 % Sodium Chloride 1,000 ML 999 ML IV (06:05)
[2022-09-24] MEDS: Ketorolac Tromethamine 30 MG/ML VIAL IVPUSH (06:05)
[2022-09-24] MEDS: iohexoL 350 MG/ML 100 ML INFUS..BTL 85 ML IV (07:53)
[2022-09-24 08:00] VITALS: BP 97/61; PULSE 90; RESP 16; TEMP 37; O2SAT 97
[2022-09-24 08:03] VITALS: RESP 16
[2022-09-24] MEDS: Morphine Sulfate 4 MG/ML CARTRIDGE IVPUSH (08:03)
--- NOTE | 2022-09-24 08:38 | PC.NURSE ---
assumed care of this pt at 0700. pt is a&o x4, pleasant, calm and cooperative. pt able to sleep with pain management, which pt sts she hasn't been able to due to the pain/discomfort in her abdomen. pt medicated per jun, resting quietly on stretcher in no apparent distress. rr even/unlabored. wctm
[2022-09-24 10:30] VITALS: BP 105/62; PULSE 89; RESP 14; TEMP 37.1; O2SAT 99
[2022-09-24 11:13] LABS: Appearance Urine Clear; Color Urine Yellow; Glucose Urine UA Negative (Negative); Leukocyte Esterase Urine Negative (Negative); Nitrite Urine Negative (Negative); PH 7.5 (5.0-9.0); Specific Gravity - Urine >= 1.030 (1.005-1.025); Urine Blood Negative (Negative); Urine Ketones Negative (Negative); Urine Protein Trace mg/dL (Neg-Trace)
[2022-09-24 11:14] VITALS: BP 104/63; PULSE 89; RESP 16; TEMP 36.8; O2SAT 100
[2022-09-24 11:18] LABS: UPreg QC Valid YES; Urine Pregnancy NEGATIVE (NEGATIVE)
== END 2022-09-24 11:29 | disposition home or self-care (01) ==
PROVIDERS: Internal Medicine; Emergency Provider Emergency Medicine
DX: K52.9 Noninfective gastroenteritis and colitis, unspecified (principal); Z79.899 Other long term (current) drug therapy
CPT/HCPCS: 36415; 74177; 80048; 80076; 81003; 81025; 83690; 85025; 86140; 96361; 96374; 96375; 99284; 99285; J1885; J2270; J2405; Q9967

== ENCOUNTER 2022-09-30 06:50 | Outpatient (REF) | payer OTHER, SELFPAY ==
--- NOTE | ~2022-09-30 | CT_ITS ---
EXAMINATION: CT SCAN OF THE TEMPORAL BONES CLINICAL INFORMATION: Disorder of the middle ear COMPARISON: MRI brain 07/15/2022 TECHNIQUE: Multidetector helical imaging was performed in the axial plane with generation of oblique axial and coronal reformatted projections. This CT examination was performed using dose optimization techniques as appropriate, variously including the following: *Automated exposure control *Adjustment of mA and/or kV according to patient size (this includes techniques or standardized protocols for targeted exams where dose is matched to indication/reason for exam; i.e. extremities or head) *Use of iterative reconstruction technique DLP: 146 mGy-cm. FINDINGS: There is a 9 mm superiorly projecting exostosis off the left petromastoid ridge along the roof of the left IAC with central lucency suggestive of normal marrow with corresponding T1 shortening on prior MRI. There is no left IAC stenosis. Redemonstrated small left inferior mastoid effusion. The right mastoid air cells are well aerated. The periauricular soft tissues are unremarkable. The external auditory canals are clear. The tympanic membranes are intact without thickening. The middle ear clefts are clear. The ossicles are normal without erosive change. The round and oval windows are normal. There is normal mineralization of the otic capsules. The tegmen tympani and tegmen mastoideum are intact. The cochlea, vestibule, and semicircular canals are normal. The vestibular aqueducts are normal. The bony internal auditory canals are normal. The facial nerve courses are normal. -- Other Findings -- The bilateral carotid canals and jugular foramina are normal. The visualized paranasal sinuses are well aerated. The orbits are unremarkable. The visualized intracranial structures are normal. CT/CT internal auditory canals BI IMPRESSION: 9 mm superiorly projecting exostosis off the left petromastoid ridge along the roof of the left IAC with central lucency suggestive of normal marrow corresponding to T1 shortening on prior MRI. There is no left IAC stenosis. Redemonstrated small left inferior mastoid effusion. Otherwise the temporal bones are normal in appearance.
== END 2022-09-30 06:51 | disposition home or self-care (01) ==
LOC: HO.CT 06:50
PROVIDERS: PCP Internal Medicine; Visit Provider Internal Medicine
DX: H74.8X2 Other specified disorders of left middle ear and mastoid (principal)
CPT/HCPCS: 70480

== ENCOUNTER 2023-02-24 09:05 | Outpatient (AMB) | payer OTHER, SELFPAY ==
--- NOTE | 2023-02-24 09:23 | MHC.OFFWIV ---
Intake Vital Signs 02/24/23 09:35 Height 5 ft 1 in Weight 197 lb BMI 37.2 BP 122/78 Blood Pressure Location Rt brachial Position Sitting Pulse 82 Pulse Source Pulse Oximeter Temp 97.8 F Temp Source Temporal Artery Scan Pulse Oximetry (%) 100 Oxygen Delivery Method Room Air Intake Visit Reasons: EP, sore throat, congestion ([phone]) Intake Note: Pt is here c/o sore throat and chest congestion. Pt states she has white spots on the back of her throat and request a strep test. Patient Tobacco Use Status: Never used Tobacco Allergies latex Allergy (Unknown, Verified 02/24/23 10:00) rash minocycline Allergy (Unknown, Verified 02/24/23 10:00) unknown shellfish derived Adverse Reaction (Verified 02/24/23 10:00) Unknown Medication List - Last Reconciled 02/24/23 by Remy Cody MD acyclovir 400 mg (2 x 200 mg) PO BID 90 days epinephrine (EpiPen) 0.3 mg (0.3 mL) IM Q10M PRN fluconazole 150 mg PO Q3D 2 doses ondansetron 4 mg PO Q6-8H PRN oxycodone 5 mg PO Q8H PRN Do you need a note to return to daycare/school/sports/work: Yes HPI EP, sore throat, congestion ([phone]) HPI Details Patient presents for a sick visit. Reporting symptoms of sinus congestion, sore throat and difficulty swallowing. Low-grade fever. No family member is sick. No recent travel. Patient reports symptoms of malaise and fatigue. [facility] Medical History Annual physical exam Back pain BCP ( control pills) initiation Body aches after vaccination Carpal tunnel syndrome Cellulitis Cervical cancer screening Cholesterol granuloma Depression Exposure to COVID-19 virus Fracture of middle phalanx of right ring finger GERD (gastroesophageal reflux disease) History of vaginal pruritus Hypersomnia Labial pain Myalgia Obesity (BMI 30-39.9) Potential exposure to STD Recurrent cold sores Retained placenta after delivery without hemorrhage but with other complication Screen for sexually transmitted diseases Screening due Somatic dysfunction of left sacroiliac joint Somatic dysfunction of right sacroiliac joint Surveillance for control, oral contraceptives Urinary frequency Vaginal discharge Vaginal discharge Vaginal pruritus Vitamin D deficiency Well woman exam with routine gynecological exam Surgical History Deficient knowledge of leg surgery Family History Maternal Grandmother Heart disease Hypertension Father No problems noted. Mother Diabetes CVD (cardiovascular disease) Maternal Grandfather Heart disease Hypertension Myocardial infarction Maternal Aunt Ovarian ca Maternal Uncle Diabetes Paternal Uncle Diabetes Social History Housing: House Alcohol intake: current Alcohol intake frequency: 0-2 drinks per day Alcohol type: beer Patient Tobacco Use Status: Never used Tobacco e-Cigarette/Vaping Use: Never Used Second Hand Smoke Exposure: No service: No Current occupational status: employed Current occupational exposures/hazards: No Gender identity: Female Cognitive needs: No Hearing needs: No Vision needs: No Female Reproductive History Menstrual Age of Menarche: 8 Physical Exam Vital Signs: Last Vital Signs Temp 97.8 F 02/24/23 09:35 Pulse 82 02/24/23 09:35 BP 122/78 02/24/23 09:35 Pulse Ox 100 02/24/23 09:35 Oxygen Delivery Method Room Air 02/24/23 09:35 BMI result Body Mass Index 37.2 Const General: cooperative and healthy appearing Nutritional Appearance: well nourished Orientation/consciousness: patient oriented x3 Limitations: no limitations HEENT Head: Yes normal to inspection Eyes General: appearance normal, both eyes and all related structures Neck Neck: Yes normal visual inspection Chest Chest palpation & inspection: normal palpation of entire chest wall Resp Effort & Inspection: normal respiratory effort Neuro General: patient oriented x3 Results AMB Rapid Strep AMB Rapid Strep Negative Last Edit by Liz Martinez CMA on 02/24/23 09:55 Results Reviewed Results Reviewed: Laboratory Last Values Strep Scn Rapid Clinic Negative 02/24/23 09:54 Assessment & Plan Assessment & Plan (1) Upper respiratory tract infection: Code(s): J06.9 - Acute upper respiratory infection, unspecified Plan Antibiotics ordered. Increase fluid intake. Tylenol for aches and pains. If symptoms worsen, follow-up here for a recheck. Orders: Orders AMB Rapid Strep Screen Today Z13.9 - Encounter for screening, unspecified Coding Level of Care Code Est Pt Level 3 (96267) Diagnoses Upper respiratory tract infection J06.9
[2023-02-24 09:35] VITALS: BP 122/78; PULSE 82; TEMP 36.6; O2SAT 100; BMI 37.2
== END 2023-02-24 10:17 | disposition home or self-care (01) ==
PROVIDERS: Visit Provider Internal Medicine
DX: J06.9 Acute upper respiratory infection, unspecified (principal); J02.9 Acute pharyngitis, unspecified
CPT/HCPCS: 87880; 99213

== ENCOUNTER 2023-05-12 13:03 | Outpatient (AMB) | payer OTHER, SELFPAY ==
[2023-05-12 13:08] VITALS: BP 110/70; BMI 37.2
--- NOTE | 2023-05-12 13:08 | MHC.OFFVIS ---
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 No complaints. Last Pap/HPV was negativeIn 09/01 [facility] Medical History Cholesterol granuloma Screening due Recurrent cold sores BCP ( control pills) initiation History of vaginal pruritus Cervical cancer screening Screen for sexually transmitted diseases Well woman exam with routine gynecological exam Hypersomnia Myalgia Vaginal pruritus Labial pain Annual physical exam Vaginal discharge Urinary frequency Depression Retained placenta after delivery without hemorrhage but with other complication Somatic dysfunction of left sacroiliac joint Back pain Somatic dysfunction of right sacroiliac joint Body aches after vaccination Cellulitis Vitamin D deficiency Potential exposure to STD Surveillance for control, oral contraceptives Exposure to COVID-19 virus Fracture of middle phalanx of right ring finger Carpal tunnel syndrome GERD (gastroesophageal reflux disease) Obesity (BMI 30-39.9) Vaginal discharge Surgical History Hx of dilation and curettage Deficient knowledge of leg surgery Family History Maternal Grandmother Heart disease Hypertension Father No problems noted. Mother Diabetes CVD (cardiovascular disease) Maternal Grandfather Heart disease Hypertension Myocardial infarction Maternal Aunt Ovarian ca Maternal Uncle Diabetes Paternal Uncle Diabetes Social History Housing: House Alcohol intake: current Alcohol intake frequency: 0-2 drinks per day Alcohol type: beer Patient Tobacco Use Status: Never used Tobacco e-Cigarette/Vaping Use: Never Used Second Hand Smoke Exposure: No service: No Current occupational status: employed Current occupational exposures/hazards: No Gender identity: Female Cognitive needs: No Hearing needs: No Vision needs: No Female Reproductive History Menstrual Age of Menarche: 8 Duration of menses: 6-7 days Date of last menstrual period: 05/04/23 control method: none Total pregnancies: 3 Full term: 2 Number of Living Children: 2 Ab spontaneous: 1 Date of last pap smear: 08/20/22 (negative) History of abnormal pap smear: No Review of Systems Const All systems reviewed & are unremarkable except as noted in HPI and below Card Reports as per HPI Resp Reports as per HPI GI Reports as per HPI and Reports no additional complaints Reports as per HPI Physical Exam Vital Signs: Last Vital Signs BP 110/70 05/12/23 13:08 BMI result Body Mass Index 37.2 Const General: cooperative, healthy appearing and comfortable Chest Chest palpation & inspection: normal inspection of the chest and normal palpation of entire chest wall Breast/axilla inspection: normal inspection of the breasts and normal inspection of the axillae Breast/axilla palpation: normal palpation of the breasts, normal palpation of the axillae and no axillary lymphadenopathy Resp Effort & Inspection: normal respiratory effort Auscultation: clear to auscultation bilaterally Percussion: percussion normal Cardio Palpation: normal PMI Rate: regular rate Rhythm: regular rhythm Heart sounds: no murmurs and no rubs Peripheral pulses: Peripheral pulses 2+ throughout GI Inspection: Yes normal to inspection Palpation (GI): Soft to palpation, nontender, no guarding, not rigid and No hepatosplenomegaly present Percussion: Yes normal to percussion Auscultation: normal bowel sounds Rectal Exam - Female: deferred General: Yes bladder normal to palpation External Female Exam: No lesion Speculum Exam - Vagina: normal appearance of the vagina, normal palpation, normal vaginal discharge and not erythematous Speculum Exam - Cervix: normal appearance of the cervix and normal palpation Bimanual exam- vagina & uterus: normal bimanual exam, normal palpation, uterine size normal, bladder normal to palpation, consistency normal and normal palpation Bimanual Exam- Adnexa, other: normal adnexae, no masses and no tenderness Assessment & Plan Assessment & Plan (1) Well woman exam: Code(s): Z01.419 - Encounter for gynecological examination (general) (routine) without abnormal findings Plan: Cotesting not indicated this year. Counseled the patient about the recommended dietary allowance of 1000 mg of Calcium & 600 IU of vitamin D. The patient was instructed to perform monthly self-breast exams and to schedule an annual exam in a year; All questions answered and the patient verbalized understanding. Instructed the patient to schedule annual exam in a year Coding Level of Care Code Est Pt Prev Care 18-39y(74233) Diagnoses Well woman exam Z01.419
== END 2023-05-12 13:29 | disposition home or self-care (01) ==
LOC: HO.HWS 13:03
PROVIDERS: PCP Internal Medicine; Visit Provider Obstetrics & Gynecology
DX: Z01.419 Encounter for gynecological examination (general) (routine) without abnormal findings (principal)
CPT/HCPCS: 99395

== ENCOUNTER → 2023-05-12 13:03 | Outpatient (BNVA) | payer OTHER, SELFPAY | PROVIDERS: PCP Internal Medicine; Visit Provider Obstetrics & Gynecology ==

== ENCOUNTER 2023-05-25 12:45 | Outpatient (AMB) | payer OTHER, SELFPAY ==
[2023-05-25 12:45] VITALS: BP 112/74; PULSE 90; TEMP 36.8; O2SAT 98; BMI 38.0
--- NOTE | 2023-05-25 12:45 | AM.OFFWIN_ITS ---
Intake Vital Signs 05/25/23 12:45 Height 5 ft 1 in Weight 201 lb BMI 38.0 BP 112/74 Blood Pressure Location Lt brachial Position Sitting Pulse 90 Pulse Source Pulse Oximeter Temp 98.3 F Temp Source Temporal Artery Scan Pulse Oximetry (%) 98 Oxygen Delivery Method Room Air Intake Visit Reasons: EST/back pain, cant urinate (lobby) Intake Note: pt is here today for back pain and cant urinate started today Patient Tobacco Use Status: Never used Tobacco Allergies latex Allergy (Unknown, Verified 05/25/23 12:56) rash minocycline Allergy (Unknown, Verified 05/25/23 12:56) unknown shellfish derived Adverse Reaction (Verified 05/25/23 12:56) Unknown Medication List - Last Reconciled 05/25/23 by KHOA Lora acyclovir 400 mg (2 x 200 mg) PO BID 90 days cephalexin 250 mg (5 mL) PO QID 7 days epinephrine (EpiPen) 0.3 mg (0.3 mL) IM Q10M PRN ondansetron 4 mg PO Q6-8H PRN Do you need a note to return to daycare/school/sports/work: No HPI HPI Comments History of Present Illness Details 38-year-old female presents with 1 day o f dysuria urgency frequency. She is also feels fatigued and has mild myalgias. 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 Recurrent cold sores BCP ( control pills) initiation History of vaginal pruritus Cervical cancer screening Screen for sexually transmitted diseases Well woman exam with routine gynecological exam Hypersomnia Myalgia Vaginal pruritus Labial pain Annual physical exam Vaginal discharge Urinary frequency Depression Retained placenta after delivery without hemorrhage but with other complication Somatic dysfunction of left sacroiliac joint Back pain Somatic dysfunction of right sacroiliac joint Body aches after vaccination Cellulitis Vitamin D deficiency Potential exposure to STD Surveillance for control, oral contraceptives Exposure to COVID-19 virus Fracture of middle phalanx of right ring finger Carpal tunnel syndrome GERD (gastroesophageal reflux disease) Obesity (BMI 30-39.9) Vaginal discharge Surgical History Hx of dilation and curettage Deficient knowledge of leg surgery Family History Maternal Grandmother Heart disease Hypertension Father No problems noted. Mother Diabetes CVD (cardiovascular disease) Maternal Grandfather Heart disease Hypertension Myocardial infarction Maternal Aunt Ovarian ca Maternal Uncle Diabetes Paternal Uncle Diabetes Social History Housing: House Alcohol intake: current Alcohol intake frequency: 0-2 drinks per day Alcohol type: beer Patient Tobacco Use Status: Never used Tobacco e-Cigarette/Vaping Use: Never Used Second Hand Smoke Exposure: No service: No Current occupational status: employed Current occupational exposures/hazards: No Gender identity: Female Cognitive needs: No Hearing needs: No Vision needs: No Female Reproductive History Menstrual Age of Menarche: 8 Review of Systems Const Reports body aches, Reports chills and Reports fatigue Reports dysuria, Reports urinary hesitancy and Reports urinary urgency Musc Reports myalgias Endo Reports fatigue Physical Exam Vital Signs: BMI result Body Mass Index 38.0 Const General: acute distress mild HEENT Head: Yes normal to inspection, Yes normocephalic and Yes atraumatic General nose exam: Normal external nose present Face and sinus: Yes normal facial exam Eyes General: appearance normal, both eyes and all related structures Assessment & Plan Assessment & Plan (1) Dysuria: Code(s): R30.0 - Dysuria Plan: The patient will take cephalexin for 7 days. She was unable to give an adequate a urine sample to send in a culture. She states if it is not completely resolved she will see her PCP for follow-up. Plan See plan Medications: New cephalexin 250 mg (5 mL) PO QID 7 days 140 mL 0RF Coding Level of Care Code Est Pt Level 3 (15906) Diagnoses Dysuria R30.0
== END 2023-05-25 14:15 | disposition home or self-care (01) ==
PROVIDERS: PCP Internal Medicine; Visit Provider Physician Assistant Medical
DX: R30.0 Dysuria (principal); Z13.9 Encounter for screening, unspecified
CPT/HCPCS: 81003; 99213

== ENCOUNTER 2023-06-14 17:01 | Outpatient (AMB) | payer OTHER, SELFPAY ==
[2023-06-14 17:10] VITALS: BP 122/80; PULSE 76; RESP 17; O2SAT 99; BMI 37.6
--- NOTE | 2023-06-14 17:10 | MHC.PC.OV ---
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 Accompanied by: Self / Same As Patient Allergies latex Allergy (Unknown, Verified 06/14/23 17:18) rash minocycline Allergy (Unknown, Verified 06/14/23 17:18) unknown shellfish derived Adverse Reaction (Verified 06/14/23 17:18) Unknown Tobacco use date assessed: 06/14/23 Dental Screening Dental Screen Date: 06/14/23 Did you have a dental visit in the last 12 months?: Yes Did you have a dental problem in the last 6 months where you did not have access to dental care?: No Was dental information given to patient?: Patient has dentist HPI Health Concern HPI Details 38-year-old obese female with impaired glucose tolerance coming in for follow-up. Last seen in August 2022. Review May 2023 urgent care visit for dysuria and was treated for UTI. February 2023 upper respiratory tract infection. anxious and wants wellbutrin to take . 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 Recurrent cold sores BCP ( control pills) initiation History of vaginal pruritus Cervical cancer screening Screen for sexually transmitted diseases Well woman exam with routine gynecological exam Hypersomnia Myalgia Vaginal pruritus Labial pain Annual physical exam Vaginal discharge Urinary frequency Depression Retained placenta after delivery without hemorrhage but with other complication Somatic dysfunction of left sacroiliac joint Back pain Somatic dysfunction of right sacroiliac joint Body aches after vaccination Cellulitis Vitamin D deficiency Potential exposure to STD Surveillance for control, oral contraceptives Exposure to COVID-19 virus Fracture of middle phalanx of right ring finger Carpal tunnel syndrome GERD (gastroesophageal reflux disease) Obesity (BMI 30-39.9) Vaginal discharge Surgical History Hx of dilation and curettage Deficient knowledge of leg surgery Family History Maternal Grandmother Heart disease Hypertension Father No problems noted. Mother Diabetes CVD (cardiovascular disease) Maternal Grandfather Heart disease Hypertension Myocardial infarction Maternal Aunt Ovarian ca Maternal Uncle Diabetes Paternal Uncle Diabetes Social History Housing: House Alcohol intake: current Alcohol intake frequency: 0-2 drinks per day Alcohol type: beer Patient Tobacco Use Status: Never used Tobacco e-Cigarette/Vaping Use: Never Used Second Hand Smoke Exposure: No service: No Current occupational status: employed Current occupational exposures/hazards: No Gender identity: Female Cognitive needs: No Hearing needs: No Vision needs: No Female Reproductive History Menstrual Age of Menarche: 8 Questionnaire PHQ-9 Over the last 2 weeks, how often have you been bothered by any of the following problems? 1. Little interest or pleasure in doing things: several days 2. Feeling down, depressed, or hopeless: nearly every day 3. Trouble falling or staying asleep, or sleeping too much: nearly every day 4. Feeling tired or having little energy: nearly every day 5. Poor appetite or overeating: more than half the days 6. Feeling bad about yourself - or that you are a failure or have let yourself or your family down: not at all 7. Trouble concentrating on things, such as reading the newspaper or watching television: not at all 8. Moving or speaking so slowly that other people could have noticed. Or the opposite - being so fidgety or restless that you have been moving around a lot more than usual: nearly every day 9. Thoughts that you would be better off or of hurting yourself in some way: several days Total score: 16 Depression Screening Interpretation: Positive Depression Screening Done: Yes 88200 - PHQ-9 Billing: Yes Source: Developed by Drs. Abdulkadir Goodson, Erika Cespedes, Nate Rodrigues and colleagues, with an educational sam from [employer]. Thrive Questionnaire Date Thrive assessed: 06/14/23 I am a: Patient What is your living situation today?: I have a steady place to live Within the past 12 months, did the food you bought not last and you didn't have the money to get more?: Never true Within the past 12 months, did you worry whether your food would run out before you got money to buy more?: Never true Do you have trouble paying for medicines?: No Do you have trouble getting transportation to medical appointments?: No Do you have trouble paying your heating and electricity bill?: No Do you have trouble taking care of your child, family member or friend?: No Do you have trouble with day-to-day activities such as bathing, preparing meals, shopping, managing finances, etc.?: No Are you currently unemployed and looking for a job?: No Are you interested in more education?: No Please select the resources that you would like help with: None Currently or been in a relationship where the following occur: no concerns reported THRIVE Score: 0 AUDIT C Alcohol Use Questionnaire (AUDIT-C) 1. How often do you have a drink containing alcohol?: Monthly or less 2. How many drinks containing alcohol do you have on a typical day when you are drinking?: 1 or 2 3. How often do you have six or more drinks on one occasion?: Never Total Score: 1 RIKI-7 AMB Questionnaire RIKI-7 Date RIKI - 7 assessed: 06/14/23 Feeling nervous, anxious, or on edge: 3 = Nearly every day Not being able to stop or control worryin = Nearly every day Worrying too much about different things: 3 = Nearly every day Trouble relaxin = Nearly every day Being so restless that it is hard to sit still: 2 = More than half the days Becoming easily annoyed or irritable: 3 = Nearly every day Feeling afraid as if something awful might happen: 2 = More than half the days Total RIKI-7 score (0-4 normal; 5-9 mild; 10-14 moderate; 15-21 severe): 19 Source: Developed by Drs. Abdulkadir Goodson, Erika Cespedes, Nate Rodrigues and colleagues, with an educational sam from [employer]. RIKI-7 Assessment Billing RIKI-7 Assessment Tool: RIKI-7 Assessment 39314 Physical exam (Primary Care) Vital Signs: Last Vital Signs Pulse 76 06/14/23 17:10 Resp 17 06/14/23 17:10 BP 122/80 06/14/23 17:10 Pulse Ox 99 06/14/23 17:10 Oxygen Delivery Method Room Air 06/14/23 17:10 BMI result Body Mass Index 37.6 Tobacco/Smoking Status: Tobacco use Status Tobacco use date assessed 06/14/23 06/14/23 17:19 Patient Tobacco Use Status Never used Tobacco 06/14/23 17:10 Tobacco use type 06/10/23 13:51 e-Cigarette/Vaping Use Never Used 06/14/23 17:10 Depression Screening Interpretation: Positive Thrive Assessment: Date of Thrive Assessment Date Thrive assessed 05/22/22 06/14/23 17:10 Currently or been in a relationship where the following occur: no concerns reported Const General: alert; No acute distress Eyes Conjunctivae: conjunctivae normal Resp Auscultation: clear to auscultation bilaterally Cardio Rate: regular rate Rhythm: regular rhythm GI Inspection: Yes normal to inspection Extrem General: Yes normal to inspection and No edema Assessment and Plan Assessment & Plan (1) Obesity (BMI 30-39.9): Code(s): E66.9 - Obesity, unspecified Plan: Diet and exercise (2) GERD (gastroesophageal reflux disease): Code(s): K21.9 - Gastro-esophageal reflux disease without esophagitis Plan: Avoid the foods that causes that usually spicy foods, tomato products, juices, coffee, soda and foods that your sensitive to. After eating do not lie down, allow 3-4 hours before in lie down. And keep the head of bed above 30 degrees to avoid the acid from going up. (3) Generalized anxiety disorder: Code(s): F41.1 - Generalized anxiety disorder Plan: decline counselling for now. asking about med wellbutrin (4) Impaired glucose tolerance: Code(s): R73.02 - Impaired glucose tolerance (oral) Plan: Decrease the amount of carbohydrate intake, pasta, bread, rice and potatoes are all sugar and that is aside from all the sweet stuff, remember that fruits are good but they are Sweet also. Orders: Orders Complete Blood Count Auto Diff Today K21.9 - Gastro-esophageal reflux disease without esophagitis Comprehensive Met. Panel Today K21.9 - Gastro-esophageal reflux disease without esophagitis Thyroid Stimulating Hormone Today K21.9 - Gastro-esophageal reflux disease without esophagitis Lipid Panel Today E78.00 - Pure hypercholesterolemia, unspecified, K21.9 - Gastro-esophageal reflux disease without esophagitis Free T4 (Free Thyroxine) Today K21.9 - Gastro-esophageal reflux disease without esophagitis Vitamin B12 and Folate Today K21.9 - Gastro-esophageal reflux disease without esophagitis Vitamin D 25-OH Total Today K21.9 - Gastro-esophageal reflux disease without esophagitis Hemoglobin A1c Today R73.9 - Hyperglycemia, unspecified Medications: New bupropion HCl (Wellbutrin XL) 150 mg PO QAM 30 tabs 4RF F41.1 - Generalized anxiety disorder Coding Level of Care Code Est Pt Level 4 (96407) Diagnoses Obesity (BMI 30-39.9) E66.9 GERD (gastroesophageal reflux disease) K21.9 Generalized anxiety disorder F41.1 Impaired glucose tolerance R73.02 Additional Codes RIKI-7 Assessment Billing - RIKI-7 Assessment Tool: RIKI-7 Assessment 24000 ([id number])
== END 2023-06-14 17:37 | disposition home or self-care (01) ==
PROVIDERS: PCP Internal Medicine; Visit Provider Internal Medicine
DX: K21.9 Gastro-esophageal reflux disease without esophagitis (principal); E66.9 Obesity, unspecified; Z68.37 Body mass index [BMI] 37.0-37.9, adult; F41.1 Generalized anxiety disorder; R73.02 Impaired glucose tolerance (oral)
CPT/HCPCS: 96127; 99214

== ENCOUNTER 2023-07-14 12:29 | Outpatient (AMB) | payer OTHER, SELFPAY ==
[2023-07-14 12:29] VITALS: BP 112/76; PULSE 86; TEMP 36.2; O2SAT 97; BMI 36.7
--- NOTE | 2023-07-14 12:29 | AM.OFFWIN_ITS ---
Intake Vital Signs 07/14/23 12:29 Height 5 ft 1 in Weight 194 lb BMI 36.7 BP 112/76 Blood Pressure Location Lt brachial Position Sitting Pulse 86 Pulse Source Pulse Oximeter Temp 97.2 F Temp Source Temporal Artery Scan Pulse Oximetry (%) 97 Oxygen Delivery Method Room Air Intake Visit Reasons: EP Stomach bug, Headache, Yeast Infection Intake Note: pt is here today for stomach bug headache yeast infection started yesterday Patient Tobacco Use Status: Never used Tobacco Allergies latex Allergy (Unknown, Verified 07/14/23 12:33) rash minocycline Allergy (Unknown, Verified 07/14/23 12:33) unknown shellfish derived Adverse Reaction (Verified 07/14/23 12:33) Unknown Do you need a note to return to daycare/school/sports/work: Yes HPI EP Stomach bug, Headache, Yeast Infection HPI Details This is a 38 year old female patient who presents today a one day history of nausea, vomiting, and diarrhea. Has not had diarrhea today however has had ongoing nausea/vomiting. Has been able to tolerate PO fluids however has not been eating much food. Denies any fevers or abdominal pain. Reports her children had similar illness several days ago, which lasted about 24 hours. Also states she feels like she is getting a yeast infection. Has had some itching and white discharge. Denies any dysuria or odor. Denies risk for STI. Has had frequent yeast infections over the last year and does well on diflucan. 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 cold sores BCP ( control pills) initiation History of vaginal pruritus Cervical cancer screening Screen for sexually transmitted diseases Well woman exam with routine gynecological exam Hypersomnia Myalgia Vaginal pruritus Labial pain Annual physical exam Vaginal discharge Urinary frequency Depression Retained placenta after delivery without hemorrhage but with other complication Somatic dysfunction of left sacroiliac joint Back pain Somatic dysfunction of right sacroiliac joint Body aches after vaccination Cellulitis Vitamin D deficiency Potential exposure to STD Surveillance for control, oral contraceptives Exposure to COVID-19 virus Fracture of middle phalanx of right ring finger Carpal tunnel syndrome GERD (gastroesophageal reflux disease) Obesity (BMI 30-39.9) Vaginal discharge Surgical History Hx of dilation and curettage Deficient knowledge of leg surgery Family History Maternal Grandmother Heart disease Hypertension Father No problems noted. Mother Diabetes CVD (cardiovascular disease) Maternal Grandfather Heart disease Hypertension Myocardial infarction Maternal Aunt Ovarian ca Maternal Uncle Diabetes Paternal Uncle Diabetes Social History Housing: House Alcohol intake: current Alcohol intake frequency: 0-2 drinks per day Alcohol type: beer Patient Tobacco Use Status: Never used Tobacco e-Cigarette/Vaping Use: Never Used Second Hand Smoke Exposure: No service: No Current occupational status: employed Current occupational exposures/hazards: No Gender identity: Female Cognitive needs: No Hearing needs: No Vision needs: No Female Reproductive History Menstrual Age of Menarche: 8 Review of Systems Const All systems reviewed & are unremarkable except as noted in HPI and below Physical Exam Vital Signs: Last Vital Signs Temp 97.2 F 07/14/23 12:29 Pulse 86 07/14/23 12:29 BP 112/76 07/14/23 12:29 Pulse Ox 97 07/14/23 12:29 Oxygen Delivery Method Room Air 07/14/23 12:29 BMI result Body Mass Index 36.7 Const General: cooperative and no acute distress Resp Effort & Inspection: normal respiratory effort Auscultation: clear to auscultation bilaterally Cardio Rate: regular rate Rhythm: regular rhythm GI Palpation (GI): Soft to palpation (nontender, nondistended) Auscultation: Hyperactive bowel sounds present Skin General skin exam: no rashes or lesions noted Extrem General: Yes capillary refill normal and Yes no clubbing, cyanosis or edema Psych Appearance: grossly normal Mental Status: mental status grossly normal Speech and movement: Normal speech and movement present Assessment & Plan Assessment & Plan (1) Gastroenteritis: Code(s): K52.9 - Noninfective gastroenteritis and colitis, unspecified Plan: About 24 hours of nausea, vomiting, diarrhea. She is able to tolerate PO fluids. Advised an electrolye drink if possible until she is able to tolerate food, at which time she should advance diet as tolerated. Still having significant nausea. Will prescribe Ondansetron. We reviewed indications, use, possible s/e. If she does not improve with time and conservative measures, or if symptoms worsen, she should return to the clinic or the ED for further evaluation. She verbalizes understanding and agrees to plan. (2) Yeast infection of the vagina: Comment: recurrent/extensive teaching Code(s): B37.31 - Acute candidiasis of vulva and vagina Plan: Diflucan rx for vaginal yeast infection. She has done well on this previously. We reviewed use of this medication. If she does not improve with treatment she can return to the clinic. Medications: New fluconazole may repeat second dose 72 hrs after first dose if symptoms persist 150 mg PO Q3D 2 tabs 0RF 2 doses B37.31 - Acute candidiasis of vulva and vagina Refilled ondansetron 4 mg PO Q6-8H PRN 10 tabs 0RF nausea and vomiting Coding Level of Care Code Est Pt Level 4 (83801) Diagnoses Gastroenteritis K52.9 Yeast infection of the vagina B37.31
== END 2023-07-14 13:04 | disposition home or self-care (01) ==
PROVIDERS: PCP Internal Medicine; Visit Provider Nurse Practitioner Family
DX: K52.9 Noninfective gastroenteritis and colitis, unspecified (principal); B37.31 Acute candidiasis of vulva and vagina
CPT/HCPCS: 99214

== ENCOUNTER 2023-10-26 06:26 | Outpatient (REF) | payer OTHER, SELFPAY ==
[2023-10-26 06:50] LABS: MANUAL DIFF FLAG NO
[2023-10-26 07:21] LABS: Basophils Percent Auto 0.4 % (0-2); Eosinophils Absolute Auto 0.2 X10*3/uL (0.0-0.4); Eosinophils Percent Auto 2.3 % (0-4); Hematocrit 39.6 % (37.0-47.0); Hemoglobin 12.9 g/dl (12.0-16.0); Imm Gran Abs Auto 0.02 X10*3/uL (0.00-0.03); Imm Gran Pct Auto 0.3 % (0.0-0.4); Lymphocytes Percent Auto 26.9 % (20-40); Mean Corpuscular HGB Conc 32.6 g/dl (31.0-35.0); Mean Corpuscular Hemoglobin 28.2 pg (27.0-33.0); Mean Corpuscular Volume 86.5 fL (80.0-98.0); Mean Platelet Volume 8.9 fL (9.4-12.3); Monocytes Absolute Auto 0.5 X10*3/uL (0.1-1.2); Neutrophils Absolute Auto 4.6 x10*3/uL (2.0-8.3); Neutrophils Percent Auto 63.1 % (45-73); Platelet Count 316 X10*3/uL (160-400); Red Blood Count 4.58 X10*6/uL (4.20-5.50); Red Cell Distribution Width 13.2 % (11.0-16.0); White Blood Count 7.3 X10*3/uL (4.8-10.8)
[2023-10-26 07:42] LABS: Estimated Average Glucose 108 mg/dL; Hemoglobin A1c % 5.4 % (<6.0)
[2023-10-26 07:57] LABS: Alanine Aminotransferase 11 U/L (0-31); Albumin Level 3.9 g/dL (3.5-5.0); Alkaline Phosphatase 92 U/L (39-117); Anion Gap 12 (12-20); Aspartate Amino Transferase 12 U/L (5-31); Bilirubin Total 0.2 mg/dL (0.0-1.0); Blood Urea Nitrogen 13 mg/dL (9-16); Calcium 9.3 mg/dL (8.4-10.2); Carbon Dioxide 23 mmol/L (22-29); Chloride 108 mmol/L (96-108); Cholesterol 160 mg/dL (<200); Estimated Glomerular Filt Rate > 60; Glucose Random 114 mg/dL (60-115); HDL Cholesterol 49 mg/dL (>40); LDL Cholesterol Calculated 102 mg/dL (<100); Potassium 4.1 mmol/L (3.3-5.1); Sodium 139 mmol/L (135-145); Total Protein 6.8 g/dL (6.5-8.0); Triglycerides 49 mg/dL (<150)
[2023-10-26 08:06] LABS: Free T4 (Free Thyroxine) 0.91 ng/dL (0.71-1.85); Thyroid Stimulating Hormone 3.99 uIU/mL (0.32-4.0); Vitamin D 25-OH Total 34.7 ng/mL (>30)
[2023-10-26 08:18] LABS: Folate 5.9 ng/mL (> or = 4.0); Vitamin B12 316 pg/mL (200-900)
== END 2023-10-26 06:27 | disposition home or self-care (01) ==
LOC: HO.LAB 06:26
PROVIDERS: PCP Internal Medicine; Visit Provider Internal Medicine
DX: K21.9 Gastro-esophageal reflux disease without esophagitis (principal); E78.00 Pure hypercholesterolemia, unspecified; R73.9 Hyperglycemia, unspecified
CPT/HCPCS: 36415; 80053; 80061; 82306; 82607; 82746; 83036; 84439; 84443; 85025

== ENCOUNTER 2023-10-27 12:36 | Outpatient (AMB) | payer OTHER, SELFPAY ==
[2023-10-27 12:37] VITALS: BP 130/70; PULSE 83; O2SAT 98; BMI 37.0
--- NOTE | 2023-10-27 12:37 | A.OFFPC_ITS ---
Vital Signs 10/27/23 12:37 Height 5 ft 1 in Weight 196 lb BMI 37.0 BP 130/70 Blood Pressure Location Lt brachial Position Sitting Pulse 83 Pulse Source Pulse Oximeter Pulse Oximetry (%) 98 Oxygen Delivery Method Room Air Intake Visit Reasons: Annual Exam Allergies latex Allergy (Unknown, Verified 10/27/23 12:37) rash minocycline Allergy (Unknown, Verified 10/27/23 12:37) unknown shellfish derived Adverse Reaction (Verified 10/27/23 12:37) Unknown Medication List - Last Reconciled 10/27/23 by Loan Herrera MD acyclovir 400 mg (2 x 200 mg) PO BID 90 days bupropion HCl XL (Wellbutrin XL) 150 mg PO QAM cholecalciferol (vitamin D3) 25 mcg PO DAILY epinephrine (EpiPen) 0.3 mg (0.3 mL) IM Q10M PRN loratadine (Claritin) 10 mg PO DAILY pediatric multivitamin (Gummi Bear Multivitamin chewable tablet) 1 tab PO DAILY Tobacco use date assessed: 06/14/23 Dental Screening Dental Screen Date: 06/14/23 HPI Annual Exam HPI Details 38-year-old obese female with GERD gener alized anxiety disorder and impaired glucose tolerance last seen in June 2023. Patient is here for physical exam.. Urgent care visit in 07/31/2023 had gastroenteritis. dizzy fall L knee pain having pain PFSH Medical History (Updated 10/27/23 @ 12:54 by Loan Herrera MD) Hypersomnia Annual physical exam Cervical cancer screening History of irregular menstrual cycles Perimenopausal symptoms Screen for sexually transmitted diseases Dysuria Well woman exam Yeast infection of the vagina Cholesterol granuloma of left middle ear Breast cancer screening Low back pain Allergic reaction Elevated blood sugar level Generalized anxiety disorder Cholesterol granuloma Screening due Recurrent cold sores BCP ( control pills) initiation History of vaginal pruritus Well woman exam with routine gynecological exam Myalgia Vaginal pruritus Labial pain Vaginal discharge Urinary frequency Depression Retained placenta after delivery without hemorrhage but with other complication Somatic dysfunction of left sacroiliac joint Back pain Somatic dysfunction of right sacroiliac joint Body aches after vaccination Cellulitis Vitamin D deficiency Potential exposure to STD Surveillance for control, oral contraceptives Exposure to COVID-19 virus Fracture of middle phalanx of right ring finger Carpal tunnel syndrome GERD (gastroesophageal reflux disease) Obesity (BMI 30-39.9) Vaginal discharge Surgical History Hx of dilation and curettage Deficient knowledge of leg surgery Family History Maternal Grandmother Heart disease Hypertension Father No problems noted. Mother Diabetes CVD (cardiovascular disease) Maternal Grandfather Heart disease Hypertension Myocardial infarction Maternal Aunt Ovarian ca Maternal Uncle Diabetes Paternal Uncle Diabetes Social History (Updated 10/27/23 @ 12:50 by Loan Herrera MD) Housing: House Alcohol intake: current Alcohol intake frequency: 0-2 drinks per day Alcohol type: beer Comment: once a week3 drinks Patient Tobacco Use Status: Never used Tobacco e-Cigarette/Vaping Use: Never Used Second Hand Smoke Exposure: No service: No Current occupational status: employed Current occupational exposures/hazards: No Gender identity: Female Cognitive needs: No Hearing needs: No Vision needs: No Female Reproductive History Menstrual Age of Menarche: 8 Questionnaire PHQ-9 Over the last 2 weeks, how often have you been bothered by any of the following problems? 1. Little interest or pleasure in doing things: several days 2. Feeling down, depressed, or hopeless: nearly every day 3. Trouble falling or staying asleep, or sleeping too much: nearly every day 4. Feeling tired or having little energy: nearly every day 5. Poor appetite or overeating: more than half the days 6. Feeling bad about yourself - or that you are a failure or have let yourself or your family down: not at all 7. Trouble concentrating on things, such as reading the newspaper or watching television: not at all 8. Moving or speaking so slowly that other people could have noticed. Or the opposite - being so fidgety or restless that you have been moving around a lot more than usual: nearly every day 9. Thoughts that you would be better off or of hurting yourself in some way: several days Total score: 16 Depression Screening Interpretation: Positive Depression Screening Done: Yes 59350 - PHQ-9 Billing: Yes Source: Developed by Drs. Abdulkadir Goodson, Erika Cespedes, Nate Rodrigues and colleagues, with an educational sam from [employer]. Thrive Questionnaire Date Thrive assessed: 06/14/23 AUDIT C Alcohol Use Questionnaire (AUDIT-C) 1. How often do you have a drink containing alcohol?: Monthly or less 2. How many drinks containing alcohol do you have on a typical day when you are drinking?: 1 or 2 3. How often do you have six or more drinks on one occasion?: Never Total Score: 1 RIKI-7 AMB Questionnaire RIKI-7 Date RIKI - 7 assessed: 10/27/23 Feeling nervous, anxious, or on edge: 3 = Nearly every day Not being able to stop or control worryin = Nearly every day Worrying too much about different things: 3 = Nearly every day Trouble relaxin = Nearly every day Being so restless that it is hard to sit still: 2 = More than half the days Becoming easily annoyed or irritable: 3 = Nearly every day Feeling afraid as if something awful might happen: 2 = More than half the days Total RIKI-7 score (0-4 normal; 5-9 mild; 10-14 moderate; 15-21 severe): 19 Source: Developed by Drs. Abdulkadir Goodson, Erika Cespedes, Nate Rodrigues and colleagues, with an educational sam from [employer]. RIKI-7 Assessment Billing RIKI-7 Assessment Tool: RIKI-7 Assessment 48601 Review of Systems Const Denies poor appetite and Denies weakness Eyes Denies no additional complaints ENT Reports Normal hearing present, Denies dizziness, Denies nasal congestion, Denies tinnitus and Denies sore throat Card Denies chest pain, Denies syncope, Denies rapid heart rate and Denies dyspnea Resp Denies cough and Denies dyspnea GI Denies change in stool character, Reports constipation, Denies diarrhea, Denies nausea and Denies vomiting Denies urinary frequency, Denies difficulty voiding and Denies dysuria Neuro Reports Normal hearing present, Denies confusion, Denies dizziness, Denies syncope and Denies weakness Psych Denies confusion Physical exam (Primary Care) Vital Signs: Oxygen Delivery Method Room Air 10/27/23 12:37 BMI result Body Mass Index 37.0 Tobacco/Smoking Status: Tobacco use Status Tobacco use date assessed 06/14/23 06/14/23 17:19 Patient Tobacco Use Status Never used Tobacco 07/14/23 12:30 Tobacco use type 06/10/23 13:51 e-Cigarette/Vaping Use Never Used 06/14/23 17:10 Depression Screening Interpretation: Positive Thrive Assessment: Date of Thrive Assessment Date Thrive assessed 06/14/23 06/14/23 17:23 Const General: No confusion Orientation/consciousness: No confusion HENMT Head: Yes normocephalic Ears: external ears normal and TM's normal bilaterally Face and sinus: Yes normal facial exam Mouth: moist mucous membranes Throat: Yes tonsils normal Eyes Conjunctivae: conjunctivae normal Pupils: Equal, round and reactive pupils present and Pupil accommodation reflex normal Direct Ophthalmoscopy: normal light reflex Neck Neck: No lymphadenopathy Thyroid: Thyroid normal Chest Chest palpation & inspection: normal inspection of the chest Resp Effort & Inspection: normal respiratory effort and no audible wheezes Auscultation: clear to auscultation bilaterally, no crackles, no wheezes and lung sounds not diminished Cardio Rate: regular rate Rhythm: regular rhythm Peripheral pulses: radial pulses present and dorsalis pedis present GI Palpation (GI): no masses Auscultation: normal bowel sounds and normoactive bowel sounds Rectal Exam - Female: deferred Skin General skin exam: no rashes or lesions noted Rashes: no rashes Neuro General: No confusion Cranial nerves: Yes Equal, round and reactive pupils present and Yes Normal hearing present Cognition (Neuro): normal cognition Gait exam (Neuro): Normal gait present Motor exam (neuro): 5/5 motor strength present throughout Deep tendon reflexes (DTR's): Right brachioradialis reflex intensity grade: 2+, Left brachioradialis reflex intensity grade: 2+, Right patellar reflex intensity grade: 2+ and Left patellar reflex intensity grade: 2+ Extrem General: No edema Assessment and Plan Assessment & Plan (1) Annual physical exam: Code(s): Z00.00 - Encounter for general adult medical examination without abnormal findings Plan: Patient is advised to eat healthy, keep well hydrated, keep active and have adequate sleep. (2) Obesity (BMI 30-39.9): Code(s): E66.9 - Obesity, unspecified Plan: Diet and exercise (3) GERD (gastroesophageal reflux disease): Code(s): K21.9 - Gastro-esophageal reflux disease without esophagitis Plan: Avoid the foods that causes that usually spicy foods, tomato products, juices, coffee, soda and foods that your sensitive to. After eating do not lie down, allow 3-4 hours before in lie down. And keep the head of bed above 30 degrees to avoid the acid from going up. (4) Generalized anxiety disorder: Code(s): F41.1 - Generalized anxiety disorder Plan: Continue with Wellbutrin (5) Impaired glucose tolerance: Code(s): R73.02 - Impaired glucose tolerance (oral) Plan: Decrease the amount of carbohydrate intake, pasta, bread, rice and potatoes are all sugar and that is aside from all the sweet stuff, remember that fruits are good but they are Sweet also. (6) Hearing difficulty: Code(s): H91.90 - Unspecified hearing loss, unspecified ear (7) Hypersomnia: Code(s): G47.10 - Hypersomnia, unspecified (8) Left knee pain: Code(s): M25.562 - Pain in left knee Orders: Orders Cortisol Random Today G47.10 - Hypersomnia, unspecified XR knee LT 2V Today M25.562 - Pain in left knee Referrals Sleep Medicine Referral G47.10 - Hypersomnia, unspecified Psychiatry Outpatient Consultation Service F41.1 - Generalized anxiety disorder Speech and Hearing Referral H91.90 - Unspecified hearing loss, unspecified ear Medical Weight Management Referral E66.9 - Obesity, unspecified Medications: New ondansetron 4 mg PO Q8H PRN 14 tabs 0RF nausea and vomiting tirzepatide (Mounjaro) 2.5 mg (0.5 mL) subcut QWEEK 4 weeks 2 mL 0RF E66.9 - Obesity, unspecified Refilled epinephrine (EpiPen) for 2 doses 0.3 mg (0.3 mL) IM Q10M PRN 2 ea 0RF anaphylaxis Coding Level of Care Code Est Pt Prev Care 18-39y(05128) Diagnoses Annual physical exam Z00.00 Obesity (BMI 30-39.9) E66.9 GERD (gastroesophageal reflux disease) K21.9 Generalized anxiety disorder F41.1 Impaired glucose tolerance R73.02 Hearing difficulty H91.90 Hypersomnia G47.10 Left knee pain M25.562 Additional Codes RIKI-7 Assessment Billing - RIKI-7 Assessment Tool: RIKI-7 Assessment 15912 ([id number])
== END 2023-10-27 13:13 | disposition home or self-care (01) ==
PROVIDERS: PCP Internal Medicine; Visit Provider Internal Medicine
DX: Z00.00 Encounter for general adult medical examination without abnormal findings (principal); E66.9 Obesity, unspecified; K21.9 Gastro-esophageal reflux disease without esophagitis; Z68.37 Body mass index [BMI] 37.0-37.9, adult; F41.1 Generalized anxiety disorder; R73.02 Impaired glucose tolerance (oral); H91.90 Unspecified hearing loss, unspecified ear; G47.10 Hypersomnia, unspecified; M25.562 Pain in left knee
CPT/HCPCS: 99395

== ENCOUNTER 2023-10-27 13:19 | Outpatient (REF) | payer OTHER, SELFPAY ==
--- NOTE | ~2023-10-27 | XR_ITS ---
EXAMINATION: XR KNEE, LEFT CLINICAL INFORMATION: Pain in the knee COMPARISON: None available. TECHNIQUE: Four views of the left knee. FINDINGS: No fracture or joint effusion. Alignment is anatomic. Joint spaces are maintained. No abnormal soft tissue calcification. XR/XR knee LT 2V IMPRESSION: Normal left knee.
[2023-10-27 15:01] LABS: Cortisol Random 6.8 ug/dL
== END 2023-10-27 13:20 | disposition home or self-care (01) ==
LOC: HO.XRAY 13:19
PROVIDERS: PCP Internal Medicine; Visit Provider Internal Medicine
DX: M25.562 Pain in left knee (principal); G47.10 Hypersomnia, unspecified
CPT/HCPCS: 36415; 73560; 82533

== ENCOUNTER 2023-10-28 15:31 | Outpatient (AMB) | payer OTHER, SELFPAY ==
[2023-10-28 15:45] VITALS: BP 116/80; PULSE 110; TEMP 37.1; O2SAT 98; BMI 37.2
--- NOTE | 2023-10-28 15:45 | MHC.OFFWIV ---
Intake Vital Signs 10/28/23 15:45 Height 5 ft 1 in Weight 197 lb BMI 37.2 BP 116/80 Blood Pressure Location Lt brachial Position Sitting Pulse 110 H Pulse Source Pulse Oximeter Temp 98.7 F Temp Source Oral Pulse Oximetry (%) 98 Oxygen Delivery Method Room Air Intake Visit Reasons: EP ?bite Intake Note: pt here c/o insect sting (? hornet) Wednesday. Right upper arm. Hives and itchy all over Patient Tobacco Use Status: Never used Tobacco Allergies latex Allergy (Unknown, Verified 10/28/23 15:45) rash minocycline Allergy (Unknown, Verified 10/28/23 15:45) unknown shellfish derived Adverse Reaction (Verified 10/28/23 15:45) Unknown Do you need a note to return to daycare/school/sports/work: No HPI HPI Comments History of Present Illness Details Patient is a 38-year-old female complaining of what she believes is a insect bite, likely a wasp, 2 days ago. She states it is very itchy and the area of redness on her left arm seems to be getting larger. She has tried Benadryl with minimal relief. She states she also has some hives on her abdomen. She denies any feelings of her throat closing up or tingling or back of her throat. Patient states she does take an allergy pill daily already. [facility] Medical History (Updated 10/28/23 @ 16:13 by Adrienne Chapman PA-C) Cellulitis Hypersomnia Annual physical exam Cervical cancer screening History of irregular menstrual cycles Perimenopausal symptoms Screen for sexually transmitted diseases Dysuria Well woman exam Yeast infection of the vagina Cholesterol granuloma of left middle ear Breast cancer screening Low back pain Allergic reaction Elevated blood sugar level Generalized anxiety disorder Cholesterol granuloma Screening due Recurrent cold sores BCP ( control pills) initiation History of vaginal pruritus Well woman exam with routine gynecological exam Myalgia Vaginal pruritus Labial pain Vaginal discharge Urinary frequency Depression Retained placenta after delivery without hemorrhage but with other complication Somatic dysfunction of left sacroiliac joint Back pain Somatic dysfunction of right sacroiliac joint Body aches after vaccination Vitamin D deficiency Potential exposure to STD Surveillance for control, oral contraceptives Exposure to COVID-19 virus Fracture of middle phalanx of right ring finger Carpal tunnel syndrome GERD (gastroesophageal reflux disease) Obesity (BMI 30-39.9) Vaginal discharge Surgical History Hx of dilation and curettage Deficient knowledge of leg surgery Family History Maternal Grandmother Heart disease Hypertension Father No problems noted. Mother Diabetes CVD (cardiovascular disease) Maternal Grandfather Heart disease Hypertension Myocardial infarction Maternal Aunt Ovarian ca Maternal Uncle Diabetes Paternal Uncle Diabetes Social History (Updated 10/27/23 @ 12:50 by Loan Herrera MD) Housing: House Alcohol intake: current Alcohol intake frequency: 0-2 drinks per day Alcohol type: beer Comment: once a week3 drinks Patient Tobacco Use Status: Never used Tobacco e-Cigarette/Vaping Use: Never Used Second Hand Smoke Exposure: No service: No Current occupational status: employed Current occupational exposures/hazards: No Gender identity: Female Cognitive needs: No Hearing needs: No Vision needs: No Female Reproductive History Menstrual Age of Menarche: 8 Review of Systems Const All systems reviewed & are unremarkable except as noted in HPI and below Physical Exam Vital Signs: Last Vital Signs Temp 98.7 F 10/28/23 15:45 Pulse 110 H 10/28/23 15:45 BP 116/80 10/28/23 15:45 Pulse Ox 98 10/28/23 15:45 Oxygen Delivery Method Room Air 10/28/23 15:45 BMI result Body Mass Index 37.2 Const General: cooperative, healthy appearing, comfortable, no acute distress and well developed Orientation/consciousness: patient oriented x3 Limitations: no limitations Eyes General: appearance normal, both eyes and all related structures Resp Effort & Inspection: normal respiratory effort and able to speak in complete sentences Skin Other: Left upper extremity, patient has an area of 4 cm round erythematous raised warm area that extends towards her elbow. No hives noted on her abdomen. Neuro General: patient oriented x3 Assessment & Plan Assessment & Plan (1) Cellulitis: Code(s): L03.90 - Cellulitis, unspecified Qualifiers: Site of cellulitis: extremity Site of cellulitis of extremity: upper extremity Laterality: right Qualified Code(s): L03.113 - Cellulitis of right upper limb Plan: Sent hydroxyzine and antibiotics to pharmacy. Patient asked for a liquid antibiotic because she can not swallow pills however she understands the hydroxyzine is a pill. Medications: New amoxicillin 500 mg (6.25 mL) PO TID 7 days 131.25 mL 0RF hydroxyzine HCl 10 mg PO QID PRN 10 tabs 0RF itching Coding Level of Care Code Est Pt Level 3 (49904) Diagnoses Cellulitis of right upper extremity L03.113 Site of cellulitis: extremity Site of cellulitis of extremity: upper extremity Laterality: right
== END 2023-10-28 16:14 | disposition home or self-care (01) ==
PROVIDERS: PCP Internal Medicine; Visit Provider Physician Assistant
DX: L03.113 Cellulitis of right upper limb (principal)
CPT/HCPCS: 99213

== ENCOUNTER 2023-11-16 11:17 | Outpatient (AMB) | payer OTHER, SELFPAY ==
--- NOTE | 2023-11-16 11:20 | A.OFFPSYCH_ITS ---
Intake Intake Visit Reasons: consultation Cryptographic Vulnerability Analyst Required: No Allergies latex Allergy (Unknown, Verified 10/28/23 15:45) rash minocycline Allergy (Unknown, Verified 10/28/23 15:45) unknown shellfish derived Adverse Reaction (Verified 10/28/23 15:45) Unknown Medication List - Last Reconciled 11/16/23 by Christi Millard APRN acyclovir 400 mg (2 x 200 mg) PO BID 90 days cholecalciferol (vitamin D3) 25 mcg PO DAILY epinephrine (EpiPen) 0.3 mg (0.3 mL) IM Q10M PRN hydroxyzine HCl 10 mg PO QID PRN loratadine (Claritin) 10 mg PO DAILY ondansetron 4 mg PO Q8H PRN pediatric multivitamin (Gummi Bear Multivitamin chewable tablet) 1 tab PO DAILY tirzepatide (Mounjaro) 2.5 mg (0.5 mL) subcut QWEEK 4 weeks HPI- Psychiatric Chief Complaint: consultation HPI Narrative: pt referred by pcp Dr Herrera for evaluation and treatment options fro depression and anxiety. Pt reports low energy, feeling fatigued every day, able to sleep any time she sits still, no interest in activities, feeling down, poor appetite or overeating, feels hopeless at times, edgy, worried, constantly thinking about things, feeling irritable and easily annoyed, trouble relaxing and trouble concentrating. 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 She is also entering a new developmental stage where parenting is becoming less central to her life- one son graduating from college and another starting [email or web address] school which is a residential dorm experience and he will start that in December- she is tearful and proud of their achievements but it has set off questions about who she is and what she wants. She has been taking wellbutrin but feels it makes her even more tired. she has trouble falling asleep at night and will sometimes takes melatonin which helps approximately 50% of the time. pt has sleep study pending; pt has TSH check and it was high normal, b12 levels and vit d level in normal range; no anemia. pt thinks she may have had undiagnosed ADHD all her life but her parents did not bring her for help. She reports lifelong trouble focusing and paying attention. her mind woiuld frequently drift off even as a child; her grades were average. pt has tried wellbutrin and zoloft - wellbutrin caused sleepiness and zoloft caused weightgain Past Psychiatric History: therapy in past when from ex Subjective Subjective Subjective Medication Compliance: Yes Side effects from medications: No Review of Systems Medical Review of Systems: unchanged Mental Status Exam Mental Status Exam Patient Appearance: Well Grooomed and Appropriate Patient Orientation: Person, Place, Time and Situation Level of Consciousness: Awake and Appropriate Patient Behavior: Appropriate Mood Description: Sad Affect Description: Sad Patient Cognition Impaired: No Ability to Follow Directions: Good Speech Pattern: Clear Memory Description: Intact Hallucinations: None Delusions: Not Present Thought Process: Intact Thought Content: positive for Intact Judgement: Good Assessment and Plan Assessment & Plan (1) Major depressive disorder, single episode, moderate: Status: Acute Code(s): F32.1 - Major depressive disorder, single episode, moderate (2) Generalized anxiety disorder: Status: Acute Code(s): F41.1 - Generalized anxiety disorder Plan rule out PTSD rule out ADHD d/c wellbutrin trial of cymbalta 40mg daily stop wellbutrin Medications: Discontinued bupropion HCl XL (Wellbutrin XL) Discontinued Reason: Patient no longer taking 150 mg PO QAM 30 tabs 4RF F41.1 - Generalized anxiety disorder Counseling and coordination of Care Pt. Self Management counseling: Maintenance-social rhythm, Mod caffeine/ETOH intake, Sleep hygiene and General coping skills Medication management counseling: Effectiveness, Side effects, Dosing range, Duration, Drug interaction and Adherence Diagnosis and Prognosis Counseling: Accuracy of diagnosis, Prognosis over time, Impact of diagnosis on life functions, Impact of family relationship, Problematic behaviors secondary to diagnosis and Adequacy of current interventions Details: I spent 60 minutes reviewing the record, seeing the patient and documenting in the medical record. Counseling provided to the patient/caregiver as outlined below. Addressed patient/caregiver concerns regarding current medication regime including effective adherence. Addressed patient/caregiver concerns regarding diagnosis and prognosis including accuracy of diagnosis, prognosis over time, impact of diagnosis. Addressed patient/caregiver concerns regarding impact of recent stressors. [facility] Medical History (Updated 11/16/23 @ 15:53 by Christi Millard APRN) Cellulitis Hypersomnia Annual physical exam Cervical cancer screening History of irregular menstrual cycles Perimenopausal symptoms Screen for sexually transmitted diseases Dysuria Well woman exam Yeast infection of the vagina Cholesterol granuloma of left middle ear Breast cancer screening Low back pain Allergic reaction Elevated blood sugar level Generalized anxiety disorder Cholesterol granuloma Screening due Recurrent cold sores BCP ( control pills) initiation History of vaginal pruritus Well woman exam with routine gynecological exam Myalgia Vaginal pruritus Labial pain Vaginal discharge Urinary frequency Depression Retained placenta after delivery without hemorrhage but with other complication Somatic dysfunction of left sacroiliac joint Back pain Somatic dysfunction of right sacroiliac joint Body aches after vaccination Vitamin D deficiency Potential exposure to STD Surveillance for control, oral contraceptives Exposure to COVID-19 virus Fracture of middle phalanx of right ring finger Carpal tunnel syndrome GERD (gastroesophageal reflux disease) Obesity (BMI 30-39.9) Vaginal discharge Surgical History Hx of dilation and curettage Deficient knowledge of leg surgery Family History Maternal Grandmother Heart disease Hypertension Father No problems noted. Mother Diabetes CVD (cardiovascular disease) Maternal Grandfather Heart disease Hypertension Myocardial infarction Maternal Aunt Ovarian ca Maternal Uncle Diabetes Paternal Uncle Diabetes Social History (Updated 10/27/23 @ 12:50 by Loan Herrera MD) Housing: House Alcohol intake: current Alcohol intake frequency: 0-2 drinks per day Alcohol type: beer Comment: once a week3 drinks Patient Tobacco Use Status: Never used Tobacco e-Cigarette/Vaping Use: Never Used Second Hand Smoke Exposure: No service: No Current occupational status: employed Current occupational exposures/hazards: No Gender identity: Female Cognitive needs: No Hearing needs: No Vision needs: No Social History: lives with pts son, and her Bf and his 3 younger children; 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
== END 2023-11-16 12:15 | disposition home or self-care (01) ==
LOC: HO.HOP 11:17
PROVIDERS: PCP Internal Medicine; Visit Provider Clinical Nurse Specialist Psychiatric/Mental Health
DX: F32.1 Major depressive disorder, single episode, moderate (principal); F41.1 Generalized anxiety disorder
CPT/HCPCS: 90792

== ENCOUNTER → 2023-11-16 11:17 | Outpatient (BNVA) | payer OTHER, SELFPAY | PROVIDERS: PCP Internal Medicine; Visit Provider Clinical Nurse Specialist Psychiatric/Mental Health | DX: F32.1 Major depressive disorder, single episode, moderate (principal); F41.1 Generalized anxiety disorder | CPT/HCPCS: 90792 ==

== ENCOUNTER 2024-02-25 09:16 | Outpatient (AMB) | payer OTHER, SELFPAY ==
[2024-02-25 09:17] VITALS: BP 100/64; PULSE 67; O2SAT 98; BMI 36.7
--- NOTE | 2024-02-25 09:17 | A.OFFPC_ITS ---
Vital Signs 02/25/24 09:17 Height 5 ft 1 in Weight 194 lb BMI 36.7 BP 100/64 Blood Pressure Location Lt brachial Position Sitting Pulse 67 Pulse Source Pulse Oximeter Pulse Oximetry (%) 98 Oxygen Delivery Method Room Air Intake Visit Reasons: Obesity Senior Account Representative Required: No Allergies latex Allergy (Unknown, Verified 02/25/24 09:18) rash minocycline Allergy (Unknown, Verified 02/25/24 09:18) unknown shellfish derived Adverse Reaction (Verified 02/25/24 09:18) Unknown Medication List - Last Reconciled 02/25/24 by Hilda Lyman PA-C acyclovir 400 mg (2 x 200 mg) PO BID 90 days cholecalciferol (vitamin D3) 25 mcg PO DAILY duloxetine 60 mg PO DAILY epinephrine (EpiPen) 0.3 mg (0.3 mL) IM Q10M PRN hydroxyzine HCl 10 mg PO QID PRN loratadine (Claritin) 10 mg PO DAILY ondansetron 4 mg PO Q8H PRN pediatric multivitamin (Gummi Bear Multivitamin chewable tablet) 1 tab PO DAILY scopolamine base (Transderm-Scop) 1 patch transdermal Q3D PRN tirzepatide (Mounjaro) 2.5 mg (0.5 mL) subcut QWEEK 4 weeks Tobacco use date assessed: 06/14/23 Dental Screening Dental Screen Date: 06/14/23 HPI Obesity HPI Details 38-year-old obese female with GERD gener alized anxiety disorder and impaired glucose tolerance last seen by Dr. Herrera October 2023 coming in for acute p roblem. She states she is feeling generally well. She does have an issue with fatigue and is scheduled for a sleep study in April. She has been working on weight loss with good healthy eating habits and regular exercise. She was unable to get the Mounjaro shot covered by her insurance. She also mentioned she has not yet followed up with a psychiatrist because she is not sure if she wants to take medications. [facility] Medical History (Updated 11/16/23 @ 15:53 by Christi Millard APRN) Cellulitis Hypersomnia Annual physical exam Cervical cancer screening History of irregular menstrual cycles Perimenopausal symptoms Screen for sexually transmitted diseases Dysuria Well woman exam Yeast infection of the vagina Cholesterol granuloma of left middle ear Breast cancer screening Low back pain Allergic reaction Elevated blood sugar level Generalized anxiety disorder Cholesterol granuloma Screening due Recurrent cold sores BCP ( control pills) initiation History of vaginal pruritus Well woman exam with routine gynecological exam Myalgia Vaginal pruritus Labial pain Vaginal discharge Urinary frequency Depression Retained placenta after delivery without hemorrhage but with other complication Somatic dysfunction of left sacroiliac joint Back pain Somatic dysfunction of right sacroiliac joint Body aches after vaccination Vitamin D deficiency Potential exposure to STD Surveillance for control, oral contraceptives Exposure to COVID-19 virus Fracture of middle phalanx of right ring finger Carpal tunnel syndrome GERD (gastroesophageal reflux disease) Obesity (BMI 30-39.9) Vaginal discharge Surgical History Hx of dilation and curettage Deficient knowledge of leg surgery Family History Maternal Grandmother Heart disease Hypertension Father No problems noted. Mother Diabetes CVD (cardiovascular disease) Maternal Grandfather Heart disease Hypertension Myocardial infarction Maternal Aunt Ovarian ca Maternal Uncle Diabetes Paternal Uncle Diabetes Social History (Updated 10/27/23 @ 12:50 by Loan Herrera MD) Housing: House Alcohol intake: current Alcohol intake frequency: 0-2 drinks per day Alcohol type: beer Comment: once a week3 drinks Patient Tobacco Use Status: Never used Tobacco e-Cigarette/Vaping Use: Never Used Second Hand Smoke Exposure: No service: No Current occupational status: employed Current occupational exposures/hazards: No Gender identity: Female Cognitive needs: No Hearing needs: No Vision needs: No Female Reproductive History Menstrual Age of Menarche: 8 Questionnaire Thrive Questionnaire Date Thrive assessed: 06/14/23 AUDIT C Alcohol Use Questionnaire (AUDIT-C) 1. How often do you have a drink containing alcohol?: Monthly or less 2. How many drinks containing alcohol do you have on a typical day when you are drinking?: 1 or 2 3. How often do you have six or more drinks on one occasion?: Never Total Score: 1 RIKI-7 AMB Questionnaire RIKI-7 Date RIKI - 7 assessed: 10/27/23 Source: Developed by Drs. Abdulkadir Goodson, Erika Cespedes, Nate Rodrigues and colleagues, with an educational sam from [employer]. Review of Systems Const Denies body aches, Reports daytime sleepiness, Reports fatigue, Denies fever(s) and Reports lethargy Eyes Reports no additional complaints ENT Reports no additional complaints Card Denies chest pain, Denies syncope, Denies lightheadedness and Denies dyspnea Resp Denies dyspnea GI Reports no additional complaints Reports no additional complaints Musc Reports no additional complaints Skin/Breast Reports system reviewed and no additional complaints, except as documented Neuro Denies syncope Psych Reports anxiety and Reports depression Endo Reports fatigue Physical exam (Primary Care) Vital Signs: Last Vital Signs Pulse 67 02/25/24 09:17 BP 100/64 02/25/24 09:17 Pulse Ox 98 02/25/24 09:17 Oxygen Delivery Method Room Air 02/25/24 09:17 BMI result Body Mass Index 36.7 Tobacco/Smoking Status: Tobacco use Status Tobacco use date assessed 06/14/23 02/25/24 09:18 Patient Tobacco Use Status Never used Tobacco 02/25/24 09:18 Tobacco use type 02/22/24 09:09 e-Cigarette/Vaping Use Never Used 02/25/24 09:18 Thrive Assessment: Date of Thrive Assessment Date Thrive assessed 06/14/23 02/25/24 09:18 Const General: cooperative, healthy appearing, comfortable and no acute distress Orientation/consciousness: patient oriented x3 HENMT Head: Yes normocephalic Ears: hearing grossly normal bilaterally General nose exam: Normal external nose present Eyes General: appearance normal, both eyes and all related structures Conjunctivae: conjunctivae normal Neck Neck: Yes full ROM and Yes no lymphadenopathy Resp Effort & Inspection: normal respiratory effort Auscultation: clear to auscultation bilaterally, no crackles, no rales, no rhonchi and no wheezes Cardio Rate: regular rate Rhythm: regular rhythm Skin General skin exam: no rashes or lesions noted Neuro General: patient oriented x3 Gait exam (Neuro): Normal gait present Extrem General: Yes normal to inspection, Yes full ROM and No edema Psych Affect: normal affect Attitude: cooperative Insight: Good insight present (Psych) Judgement: Good judgement present (Psych) Coding Level of Care Code Est Pt Level 3 (61290) Diagnoses Obesity (BMI 30-39.9) E66.9 Major depressive disorder, single episode, moderate F32.1 Hypersomnia G47.10 Impaired glucose tolerance R73.02 Generalized anxiety disorder F41.1 Assessment & Plan Assessment & Plan (1) Obesity (BMI 30-39.9): Code(s): E66.9 - Obesity, unspecified Category: Medical Plan: Healthy diet and regular exercise is encouraged. We will trial Wegovy shot to see if insurance will cover. (2) Major depressive disorder, single episode, moderate: Code(s): F32.1 - Major depressive disorder, single episode, moderate Category: Medical Plan: Advised patient to follow up with outpatient psych clinic if she is looking for medication management. Declines a counselor at this time. (3) Hypersomnia: Code(s): G47.10 - Hypersomnia, unspecified Category: Medical Plan: Sleep study ordered and we will be completed in April. Blood work normal. Patient states she is having difficulty sleeping at night occasionally and we will use the hydroxyzine as needed (4) Impaired glucose tolerance: Code(s): R73.02 - Impaired glucose tolerance (oral) Category: Medical Plan: Decrease the amount of carbohydrates such as pasta, bread, rice, and potatoes and limit the amount of sweets. Although fruits are generally healthy they should be eaten in moderation as they are still high in sugar. (5) Generalized anxiety disorder: Code(s): F41.1 - Generalized anxiety disorder Category: Medical Plan: Advised patient to follow up with outpatient psych and may continue to use hydroxyzine as needed. Plan This note was constructed using voice recognition software. While every effort has been made to ensure accuracy and youth program director, still areas may have been included sometimes these areas may affect the content or meeting of the given symptoms. Total time spent caring for the patient today was 20 minutes. This includes time spent before the visit reviewing the chart, time spent during the visit, and time spent after the visit and documentation. Medications: New semaglutide (weight loss) (Wegovy) administer weeks 1 through 4 of therapy 0.25 mg (0.5 mL) subcut QWEEK 2 mL 0RF E66.9 - Obesity, unspecified Discontinued tirzepatide (Mounjaro) Discontinued Reason: Patient no longer taking 2.5 mg (0.5 mL) subcut QWEEK 4 weeks 2 mL 0RF E66.9 - Obesity, unspecified
== END 2024-02-25 09:59 | disposition home or self-care (01) ==
PROVIDERS: PCP Internal Medicine
DX: R73.02 Impaired glucose tolerance (oral) (principal); F32.1 Major depressive disorder, single episode, moderate; Z68.36 Body mass index [BMI] 36.0-36.9, adult; E66.9 Obesity, unspecified; G47.10 Hypersomnia, unspecified; F41.1 Generalized anxiety disorder

== ENCOUNTER → 2024-02-25 09:16 | Outpatient (BNVA) | payer OTHER, SELFPAY | PROVIDERS: PCP Internal Medicine ==

== ENCOUNTER → 2024-05-01 08:10 | Outpatient (BNVA) | payer OTHER, SELFPAY | PROVIDERS: PCP Internal Medicine; Visit Provider Nurse Practitioner Family ==

== ENCOUNTER 2024-05-19 07:15 | Outpatient (REF) | payer OTHER, SELFPAY ==
[2024-05-19 07:30] LABS: MANUAL DIFF FLAG NO
[2024-05-19 07:40] LABS: Basophils Percent Auto 0.5 % (0-2); Eosinophils Absolute Auto 0.2 X10*3/uL (0.0-0.4); Eosinophils Percent Auto 2.3 % (0-4); Hematocrit 39.2 % (37.0-47.0); Hemoglobin 12.8 g/dl (12.0-16.0); Imm Gran Abs Auto 0.02 X10*3/uL (0.00-0.03); Imm Gran Pct Auto 0.3 % (0.0-0.4); Lymphocytes Percent Auto 30.2 % (20-40); Mean Corpuscular HGB Conc 32.7 g/dl (31.0-35.0); Mean Corpuscular Volume 85.8 fL (80.0-98.0); Mean Platelet Volume 8.9 fL (9.4-12.3); Monocytes Absolute Auto 0.5 X10*3/uL (0.1-1.2); Monocytes Percent Auto 6.9 % (2-11); Neutrophils Percent Auto 59.8 % (45-73); Platelet Count 332 X10*3/uL (160-400); Red Blood Count 4.57 X10*6/uL (4.20-5.50); Red Cell Distribution Width 12.8 % (11.0-16.0); White Blood Count 6.7 X10*3/uL (4.8-10.8)
[2024-05-19 08:14] LABS: Alanine Aminotransferase 14 U/L (0-31); Albumin Level 3.9 g/dL (3.5-5.0); Alkaline Phosphatase 89 U/L (39-117); Anion Gap 11 (12-20); Aspartate Amino Transferase 15 U/L (5-31); Bilirubin Total 0.5 mg/dL (0.0-1.0); Blood Urea Nitrogen 11 mg/dL (9-16); Calcium 9.3 mg/dL (8.4-10.2); Carbon Dioxide 23 mmol/L (22-29); Chloride 107 mmol/L (96-108); Estimated Glomerular Filt Rate > 60; Glucose Random 113 mg/dL (60-115); Iron 124 mcg/dL (30-160); Magnesium 2.1 mg/dL (1.6-2.6); Percent Iron Saturation 39 % (15-50); Potassium 3.9 mmol/L (3.3-5.1); Sodium 137 mmol/L (135-145); Total Iron Binding Capacity 316 mcg/dL (228-428); Total Protein 7.2 g/dL (6.5-8.0); Unsaturated Iron Binding 192 ug/dL
[2024-05-19 08:20] LABS: Erythrocyte Sedimentation Rate 9 MM/HR (0-20)
[2024-05-19 08:28] LABS: Ferritin 41 ng/mL (10-250); TSH reflex Free T4 2.55 uIU/mL (0.32-4.0)
[2024-05-19 08:41] LABS: Folate 8.4 ng/mL (> or = 4.0); Vitamin B12 446 pg/mL (200-900)
[2024-05-20 12:02] LABS: Bacterial Vaginosis PCR NEGATIVE (Negative); Candida Group PCR NOT DETECTED (Not Detect); Candida glab krusei PCR NOT DETECTED (Not Detect); Trichomonas vaginalis PCR NOT DETECTED (Not Detect)
[2024-05-20 12:29] LABS: CT PCR NOT DETECTED (Not Detect.); NG PCR NOT DETECTED (Not Detect.)
[2024-05-22 06:48] LABS: CRP High Sensitivity 1.9 mg/L
[2024-05-24 17:04] LABS: Vitamin D 25-OH, D2 6 ng/mL; Vitamin D 25-OH, D3 18 ng/mL; Vitamin D 25-OH, Total 24 ng/mL (30-100)
[2024-05-27 15:49] LABS: Vitamin B6 23.3 ng/mL (2.1-21.7)
== END 2024-05-19 07:16 | disposition home or self-care (01) ==
LOC: HO.LAB 07:15
PROVIDERS: Advanced Practice Midwife; PCP Internal Medicine; Visit Provider Nurse Practitioner Family
DX: E55.9 Vitamin D deficiency, unspecified (principal); D64.9 Anemia, unspecified; G47.10 Hypersomnia, unspecified; N89.8 Other specified noninflammatory disorders of vagina; Z20.2 Contact with and (suspected) exposure to infections with a predominantly sexual mode of transmission
CPT/HCPCS: 36415; 80053; 81515; 82306; 82607; 82728; 82746; 83090; 83540; 83735; 84207; 84443; 85025; 85652; 86141; 87491; 87591

== ENCOUNTER 2024-05-19 14:06 | Outpatient (AMB) | payer OTHER, SELFPAY ==
[2024-05-19 14:12] VITALS: BP 118/78; BMI 37.2
--- NOTE | 2024-05-19 14:12 | MHC.OFFVIS ---
Vital Signs 05/19/24 14:12 Height 5 ft 1 in Weight 197 lb BMI 37.2 BP 118/78 Intake Visit Reasons: SCOUT annual exam/do not reschedule Monkey Keeper Services: Monkey Keeper Present Information Interpreted: clinical only Chain Mender: Chain Mender Present Allergies latex Allergy (Unknown, Verified 05/19/24 14:13) rash minocycline Allergy (Unknown, Verified 05/19/24 14:13) unknown shellfish derived Adverse Reaction (Verified 05/19/24 14:13) Unknown Medication List - Last Reconciled 05/19/24 by Nohemi Conde CNM acyclovir 400 mg (2 x 200 mg) PO BID 90 days cholecalciferol (vitamin D3) 25 mcg PO DAILY epinephrine (EpiPen) 0.3 mg (0.3 mL) IM Q10M PRN loratadine (Claritin) 10 mg PO DAILY Is last menstrual period known: Yes Last menstrual period: 04/25/24 HPI HPI SCOUT annual exam/do not reschedule: Details: Patient is here for community health educator exam she is not really having any community health educator concerns though she thinks that sometimes after her period, Her vaginal discharge smells musty. She is frustrated with her weight she feels she eats very well and she described it diet recall that was quite exemplary in terms of its balance and home preparation and fresh ingredients and avoidance of snacks and junk food in large quantities of carbs. She says she has been told once she was prediabetic. She does not need to use contraception because her had a vasectomy. She is very busy all day in her job and home life She gets sleepy in the afternoon and so she is going to be having a sleep study this at [facility]. She had a whole lot of fasting lab work done this morning in preparation for that. She does not have a mammogram ordered yet. [facility] Medical History (Updated 05/19/24 @ 15:18 by Nohemi Conde CNM) Perimenopausal symptoms Cervical cancer screening Well woman exam with routine gynecological exam Cellulitis Hypersomnia Annual physical exam History of irregular menstrual cycles Screen for sexually transmitted diseases Dysuria Well woman exam Yeast infection of the vagina Cholesterol granuloma of left middle ear Breast cancer screening Low back pain Allergic reaction Elevated blood sugar level Generalized anxiety disorder Cholesterol granuloma Screening due Recurrent cold sores BCP ( control pills) initiation History of vaginal pruritus Myalgia Vaginal pruritus Labial pain Vaginal discharge Urinary frequency Depression Retained placenta after delivery without hemorrhage but with other complication Somatic dysfunction of left sacroiliac joint Back pain Somatic dysfunction of right sacroiliac joint Body aches after vaccination Vitamin D deficiency Potential exposure to STD Surveillance for control, oral contraceptives Exposure to COVID-19 virus Fracture of middle phalanx of right ring finger Carpal tunnel syndrome GERD (gastroesophageal reflux disease) Obesity (BMI 30-39.9) Vaginal discharge Surgical History Hx of dilation and curettage Deficient knowledge of leg surgery Family History Maternal Grandmother Heart disease Hypertension Father No problems noted. Mother Diabetes CVD (cardiovascular disease) Maternal Grandfather Heart disease Hypertension Myocardial infarction Maternal Aunt Ovarian ca Maternal Uncle Diabetes Paternal Uncle Diabetes Social History Housing: House Alcohol intake: current Alcohol intake frequency: 0-2 drinks per day Alcohol type: beer Comment: once a week3 drinks Patient Tobacco Use Status: Never used Tobacco e-Cigarette/Vaping Use: Never Used Second Hand Smoke Exposure: No service: No Current occupational status: employed Current occupational exposures/hazards: No Gender identity: Female Cognitive needs: No Hearing needs: No Vision needs: No Female Reproductive History Menstrual Age of Menarche: 8 Duration of menses: 3-5 days Date of last menstrual period: 04/25/24 control method: none Total pregnancies: 2 Full term: 2 Date of last pap smear: 08/20/22 (negative) History of abnormal pap smear: No Physical Exam Vital Signs: Last Vital Signs BP 118/78 05/19/24 14:12 BMI result Body Mass Index 37.2 Const General: healthy appearing, comfortable, no acute distress, well developed and alert Nutritional Appearance: average body habitus Orientation/consciousness: patient oriented x3 Limitations: no limitations HEENT Head: Yes normocephalic Neck Neck: Yes normal visual inspection Chest Chest palpation & inspection: normal inspection of the chest Breast/axilla inspection: normal inspection of the breasts and normal inspection of the axillae Breast/axilla palpation: normal palpation of the breasts and normal palpation of the axillae Resp Effort & Inspection: normal respiratory effort GI Inspection: Yes normal to inspection, No Abdominal wall edema and No distended Palpation (GI): Soft to palpation and nontender Other: Patient tense with the exam challenging to see cervix though was long close thick mobile nontender in posterior. Uterus small anteverted mobile nontender adnexa nontender good muscle tone Kegel. Vaginal vault pink scant amount of thin white discharge that possibly could be completely within normal limits for follicular phase versus mild yeast patient experience some burning at the end of the exam so decision made to offer her treatment for yeast that she can use if she feels she needs to. General: Yes bladder normal to palpation External Female Exam: normal external appearance and normal appearance of the urethra Speculum Exam - Vagina: normal appearance of the vagina, normal palpation and normal vaginal discharge Speculum Exam - Cervix: normal appearance of the cervix, normal palpation and nontender Bimanual exam- vagina & uterus: normal bimanual exam, normal palpation, uterine size normal, bladder normal to palpation, consistency normal, normal palpation, uterine mobility normal, uterine shape normal, No Cervical tenderness present, non-tender and no cervical motion tenderness Bimanual Exam- Adnexa, other: normal adnexae, no masses, normal and No adnexal tenderness Neuro General: patient oriented x3 Results Reviewed Results Reviewed: bailee: Georgette Oliveros Age/Sex: 37/F Attending: Nohemi Conde CNM : 1985 Submitted by: Nohemi Conde CNM Copies to: Loan Herrera MD MR #: [id number] Status: DEP REF Collected: 08/20/22 Location: [facility] Received: 08/20/22 Interpretation Satisfactory for evaluation. Negative for intraepithelial lesion or malignancy. Fungal organisms consistent with Aleta species. HPV mRNA E6/E7: NOT DETECTED This assay detects E6/E7 viral messenger RNA (mRNA) from 14 high-risk HPV types (16, 18, 31, 33, 35, 39, 45, 51, 52, 56, 58, 59, 66, 68) HPV testing performed by [facility], [place], [place]. See reference laboratory portion of the EMR for entire report. Clinical Information LMP: 07/29/22 Previous PAP test: Unknown, WNL Material Received ThinPrep-Cervical Copies To Nohemi Conde[address] [place] [address] Loan Herrera MD [address] [place] [address] [address] [place] [address] Electronically Signed By: Edith Gilbert 08/24/22 1246 The Pap Test is a screening procedure with the inherent possibility of both false negative and false positive results. Results should be interpreted in the context of historic and current clinical findings. Reliability of the Pap Test is enhanced by performing the test on a regular repetitive basis. Patient: Georgette Oliveros Age/Sex: 37/F MR#: [id number] Page 1 of 1 Assessment & Plan Assessment & Plan (1) Impaired glucose tolerance: Code(s): R73.02 - Impaired glucose tolerance (oral) Category: Medical (2) Obesity (BMI 30-39.9): Code(s): E66.9 - Obesity, unspecified Category: Medical (3) Vaginal burning: Code(s): N94.89 - Other specified conditions associated with female genital organs and menstrual cycle Category: Medical (4) Encounter for screening examination for sexually transmitted disease: Code(s): Z11.3 - Encounter for screening for infections with a predominantly sexual mode of transmission Category: Medical (5) Well woman exam with routine gynecological exam: Code(s): Z01.419 - Encounter for gynecological examination (general) (routine) without abnormal findings Category: Medical (6) Cervical cancer screening: Comment: 08/20/2022. Pap is negative with negative HPV Code(s): Z12.4 - Encounter for screening for malignant neoplasm of cervix Category: Medical (7) Perimenopausal symptoms: Code(s): N95.1 - Menopausal and female climacteric states Category: Medical Plan -----Discussed in this visit the following: healthy balanced diet, regular and consistent exercise, getting recommended health screens, doing the best she can for her particular health concerns, kegel exercises, pap smear screening and followup recommendations, mammography screening and SBE, normal changes in cycles in her life stage--- . She is not due for Pap smear I ordered her 1st mammogram for her.. Discussed her concerns about her vaginal discharge and perceived odors and the common experience of a alteration in bacterial charisse after intercourse and how this maybe a possibility and the options for treatment if we do find bacterial vaginosis which is extremely common finding including the metronidazole gel metronidazole tablets which are very strong, and also the periodic symptomatic use of boric acid capsules is which many find help. Discussed the her discharge appeared very normal today with a possible possible finding of mild yeast that she was not feeling symptoms of until after the exam with a little burning on the strength of that and the fact that she does get yeast infections every now and then I offered her refill on prescriptions for miconazole which would be the preferential treatment and Diflucan if she had severe symptoms.. Much of the visit was spent discussing her other health concerns and her frustration that been able to lose weight. She said that she had been told she was prediabetic in the past and in fact she got some blood tests done today and she was fasting at the time and the blood sugar was 113 but it was ordered randomly so it was read as a random results. I did show this to her and we reviewed it in the chart. She had had a medication ordered to help her with weight loss but it was not covered by her insurance in the past.. Discussed her diet which she described as extremely healthy with careful balance in food groups,and not high in carbohydrates and sugar, She is perceives herself as very active during the day and never really stops discussed that what she really may need to add in is some targeted aerobic exercise which might be best to do machine adjuster periods they recently bought a treadmill but in a place that is cold until springtime. She recalled the time during the pandemic she was not thing and she was very active and walking it [place] felt like she got healthier in then and discussed returning to those activities. She will be following up as well, and she has a sleep study coming up. RTC 1 yr. Timeframe/Date Comment Mammogram and community health educator exam/follow-up Orders: Orders MM tomosynthesis screening BI Today Z12.31 - Encounter for screening mammogram for malignant neoplasm of breast Bacterial Vaginosis Panel Today N89.8 - Other specified noninflammatory disorders of vagina CT NG by PCR Today N89.8 - Other specified noninflammatory disorders of vagina, Z20.2 - Contact with and (suspected) exposure to infections with a predominantly sexual mode of transmission Medications: New miconazole nitrate 2% (Miconazole-7) 1 appful vaginal BEDTIME 7 days 45 grams 3RF fluconazole may repeat second dose 72 hrs after first dose if symptoms persist 150 mg PO Q3D 2 doses 2 tabs 3RF Coding Level of Care Code Est Pt Prev Care 40-64y(79311) Diagnoses Impaired glucose tolerance R73.02 Obesity (BMI 30-39.9) E66.9 Vaginal burning N94.89 Encounter for screening examination for sexually transmitted disease Z11.3 Well woman exam with routine gynecological exam Z01.419 Cervical cancer screening Z12.4 Perimenopausal symptoms N95.1
== END 2024-05-19 15:19 | disposition home or self-care (01) ==
PROVIDERS: PCP Internal Medicine; Visit Provider Advanced Practice Midwife
DX: Z01.419 Encounter for gynecological examination (general) (routine) without abnormal findings (principal); R73.02 Impaired glucose tolerance (oral); E66.9 Obesity, unspecified; N94.89 Other specified conditions associated with female genital organs and menstrual cycle
CPT/HCPCS: 99396; 99459

== ENCOUNTER 2024-06-06 07:58 | Outpatient (RCR) | payer OTHER, SELFPAY ==
--- NOTE | 2024-06-06 08:49 | MHC.PT.EP ---
[facility] [place] Office [place] [facility] [place] [facility] [address] Stephanie Fong [address] [phone] F: [phone] F: [phone] F: [phone] F: [phone] Physical Therapy Plan of Care Date of Evaluation: 06/06/24 Date of Surgery: n/a Diagnosis: cervicalgia Assessment: Patient is a 39 year old female presenting to PT with complaints of pain in her neck. Pt reports onset of pain began 8 years ago due to insidious onset. She presents today with impairments in pain, tissue density, posture, ROM. 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 Pt expresses glass grinder goal of reducing pain, and is motivated to work towards this in PT. Clinical presentation today is most consistent with signs and sx associated with neck pain and pt will benefit from skilled PT 2 week x 4 weeks to address the following problems and impairments noted upon evaluation: pain, tissue density, posture, ROM. These problems limit the patient with the following functional activities: work, ADLs, sleep. The prescribed treatment plan of care is medically necessary. Co-morbidities of anxiety and depression were identified and taken into considerations of plan of care. Pt was educated on HEP, role of PT, prognosis, POC. Frequency and Duration: The patient will be seen 2 x week x 4 weeks Short Term Goals: Pt will demonstrate ability to move through available cervical ROM with min to no pain in 2 weeks. Pt will demonstrate improved posture as evidence by min to no cues during exercises in 2 weeks. Pt will demonstrate less density/tenderness to B UT in 2 weeks. Seafood Process Worker Goals: Pt will demonstrate improved NDI score by 10% in 4 weeks for improved functional mobility. Pt will demonstrate ability to sleep through the night with min to no pain in 4 weeks for improved QOL. Pt will demonstrate ability to work a full day with min to no pain in 4 weeks for return to PLOF. Treatment Plan: Modalities to reduce pain, spasms and effusion. Manual therapy to restore motion and function. Therapeutic exercise to improve strength and flexibility. Neuromuscular re-education for posture and balance. Therapeutic activities to return to functional activities of daily living. Electronically signed by: Ana Rosa Aurora, PT, DPT, ATC Please sign and return to therapist. Thank you for your referral.
--- NOTE | 2024-07-18 15:11 | MHC.PT.DC ---
[facility] [place] Office [place] Office [place] Office [address] Stephanie Fong [address] [phone] F: [phone] F: [phone] F: [phone] F: [phone] Physical Therapy Discharge Report Diagnosis: cervicalgia Date of Surgery: n/a Date of Evaluation: 06/06/24 Date of Discharge: 07/18/24 Treatments to Date: 1 Cancellations to Date: 2 No Shows to Date: 2 Discharge Status: Patient Elected to Stop Visit Non-compliance Discharge Summary: Pt has cancelled and no showed all appointments since eval and therefore to be d/c. Electronically signed by: Ana Rosa Simon, PT, DPT, ATC Please sign and return to therapist. Thank you for your referral.
== END 2024-07-18 15:11 | disposition home or self-care (01) ==
LOC: HO.PTCHIC 07:58
PROVIDERS: PCP Internal Medicine; Visit Provider Nurse Practitioner Family
DX: M54.2 Cervicalgia (principal); R20.2 Paresthesia of skin
CPT/HCPCS: 97110; 97161

== ENCOUNTER 2024-06-27 12:12 | Outpatient (REF) | payer OTHER, SELFPAY ==
--- OUTSIDE RECORDS SUMMARY | 2024-06-27 14:34 | XMS_ITS | Clinical Summary ---
Author Organization [employer] Address [address] [facility] [address] [place] [address] Care Team Providers Care Mail Distributor Name Role Phone Unavailable Primary Care Provider Unavailabl e Allergies Active Allergy Reactions Criticality Noted Date Comments Latex Hives 01/11/2013 Minocycline 01/11/2013 Shellfish Allergy 01/11/2013 Medications acyclovir (Zovirax) 200 MG capsule TAKE 2 CAPSULES BY MOUTH TWICE A DAY X90 DAYS 07/29/2022 Active Active Problems Problem Noted Date Diagnosed Date Dental calculus 08/07/2022 Dental abscess 08/07/2022 Social History Tobacco Use Types Packs/Day Years Used Date Smoking Tobacco: Never Smokeless Tobacco: Never Tobacco Cessation:Counseling Given: Not Answered Comments Unknown Sex and Gender Information Value Date Recorded Sex Assigned at Female 02/09/2022 10:14 AM EDT Legal Sex Female 10:14 AM EDT Gender Identity Female 02/09/2022 10:14 AM EDT Sexual Orientation Straight 02/09/2022 10 :14 AM EDT Last Filed Vital Signs Vital Sign Reading Time Taken Comments Blood Pressure 112/70 08/07/2022 1:43 PM EDT Pulse 80 08/07/2022 1:43 PM EDT Temperature - - Respiratory Rate - - Oxygen Saturation - - Inhaled Oxygen Concentration - - Weight - - Height - - Body Mass Index - - Plan of Treatment Health Maintenance Due Date Last Done Comments Dental Oral Exam 1984 Dental Prophylaxis 1984 Dental X-Ray: Full Mouth 1984 Depression Screening 1984 HIV Screening 1984 SDOH Screening 1984 Alcohol/Substance Use Screening 1996 Family Planning (PISQ) 1999 Hepatitis C Screening 2002 Pap Smear 2005 DTaP/Tdap/Td Vaccines (5 - Tdap) 07/02/2008 07/02/1998, 09/09/1997, 05/12/1996, Additional history exists Cervical Cancer Screening 2014 HPV/Cotest 2014 Tobacco Screening 08/08/2023 08/07/2022 Dental X-Ray: Bitewings 08/09/2023 08/07/2022 COVID-19 Vaccine ( season) 2023 05/10/2020, 04/10/2020 Influenza Vaccine (#1) 2023 01/24/2020 Mammogram 2024 Zoster Vaccines (1 of 2) 2034 RSV Patients and Patients Aged 60 years or older (1 - 1-dose 75+ series) 2059 Hepatitis B Vaccines Completed 04/24/1997, 07/03/1996, 03/31/1996 IPV Vaccines Completed 09/09/1997, 04/14, 12/11/1995, Additional history exists HIB Vaccines Aged Out No longer eligi ble based on patient's age to complete this topic HPV Vaccines Aged Out No longer eligi ble based on patient's age to complete this topic Hepatitis A Vaccines Aged Out No long er eligible based on patient's age to complete this topic Meningococcal Vaccine Aged Out No dianna fred eligible based on patient's age to complete this topic Pneumococcal Vaccine: Pediatrics (0 to 5 Years) and At-Risk Patients (6 to 49) Years) Aged Out No longer eligible based on patient's age to complete this topic RSV under 20 months Aged Out No longe r eligible based on patient's age to complete this topic Rotavirus Vaccines Aged Out No longer eligible based on patient's age to complete this topic Procedures Procedure Name Priority Date/Time Associated Diagnosis Comments BITEWINGS - 4 RADIOGRAPHIC IMAGES Routine 08/07/2022 1:30 PM EDT from Last 3 Months or Most Recently Relevant to Health Maintenance Insurance DENTAL - HSN PARTIAL (MEDICAID)
--- OUTSIDE RECORDS SUMMARY | 2024-06-27 14:34 | XMS_ITS | Clinical Summary ---
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 Phone Unavailable Primary Care Provider Unavailabl e Immunizations Immunization Administration Dates Next Due DTaP 5 09/09/1997, 7,12/11/1995,1995,05/12/1989 Hep B, ped/adol 04/24/1997,07/03/1996,03/31/1996 IPV 09/09/1997, 7,12/11/1995,1995 MMR 09/10/1995,03/22/1995 Td (adult) (Tenivac), 5 Lf t etanus toxoid, PF, adsorbed 07/02/1998 Social History Tobacco Use Types Packs/Day Years Used Date Smoking Tobacco: Never Assessed Comments Unknown Sex and Gender Information Value Date Recorded Sex Assigned at Not on file Legal Sex Female 4:06 PM EDT Gender Identity Not on file Sexual Orientation Not on file Plan of Treatment Health Maintenance Due Date Last Done Comments Varicella Vaccines (1 of 2 - 13+ 2-dose series) 1997 DTaP,Tdap,and Td Vaccines (5 - Tdap) 07/02/2008 07/02/1998, 09/09/1997, 05/12/1996, Additional history exists Influenza Vaccines (#1) 2023 COVID-19 Vaccine ( season) 2023 MMR Vaccines Completed 09/10/1995, 03/22/1995 Hepatitis B Vaccines Completed 04/24/1997, 07/03/1996, 03/31/1996 [...] on patient's age to complete this topic Men B Vaccine Aged Out No longer elig ible based on patient's age to complete this topic Meningococcal Vaccine Aged Out No dianna fred eligible based on patient's age to complete this topic Pneumococcal Vaccine Aged Out No long er eligible based on patient's age to complete this topic
== END 2024-06-27 12:13 | disposition home or self-care (01) ==
LOC: HO.MAMMO 12:12
PROVIDERS: PCP Internal Medicine; Visit Provider Advanced Practice Midwife
DX: Z12.31 Encounter for screening mammogram for malignant neoplasm of breast (principal)
CPT/HCPCS: 77063; 77067

== ENCOUNTER → 2024-06-27 12:15 | Outpatient (BNV) | payer OTHER, SELFPAY | PROVIDERS: PCP Internal Medicine; Visit Provider Internal Medicine | DX: Z12.31 Encounter for screening mammogram for malignant neoplasm of breast (principal) | CPT/HCPCS: 77063; 77067 ==

== ENCOUNTER → 2024-07-09 20:30 | Outpatient (BNV) | payer OTHER, SELFPAY | PROVIDERS: PCP Internal Medicine; Visit Provider Psychiatry & Neurology Neurology | DX: G47.10 Hypersomnia, unspecified (principal); R06.83 Snoring | CPT/HCPCS: 95810 ==

== ENCOUNTER → 2024-07-09 20:30 | Outpatient (REF) | payer OTHER, SELFPAY | LOC: HO.SL 20:30 | PROVIDERS: PCP Internal Medicine; Visit Provider Nurse Practitioner Family | DX: G47.10 Hypersomnia, unspecified (principal) | CPT/HCPCS: 95805; 95810 ==

== ENCOUNTER 2024-07-10 12:36 | Outpatient (REF) | payer OTHER, SELFPAY ==
[2024-07-10 12:54] LABS: Amphetamine Screen Urine Not Detected (Not Detect); Barbiturates, Urine Not Detected (Not Detect); Benzodiazepines Screen Urine Not Detected (Not Detect); Buprenorphine Scr Not Detected (Not Detect); Cannabinoid Screen Urine Not Detected (Not Detect); Cocaine Screen Urine Not Detected (Not Detect); Fentanyl, urine Not Detected (Not Detect); Methadone Screen, Urine Not Detected (Not Detect); Opiate Screen Urine Not Detected (Not Detect); Oxycodone Screen Urine Not Detected (Not Detect); Phencyclidine Screen Urine Not Detected (Not Detect)
--- OUTSIDE RECORDS SUMMARY | 2024-07-10 14:13 | XMS_ITS | Clinical Summary ---
Author Organization [employer] Address [address] [facility] [address] [place] [address] Care Team Providers Care Cigar Tobacco Rehandler Name Role Phone Unavailable Primary Care Provider [...]
--- OUTSIDE RECORDS SUMMARY | 2024-07-10 14:13 | XMS_ITS | Clinical Summary ---
Author Organization [facility] Address [address] [place] [address] Phone Care Team Providers Care Light Bulb Replacer Name Role Phone Unavailable Primary Care Provider [...]
== END 2024-07-10 12:37 | disposition home or self-care (01) ==
LOC: HO.LNP 12:36
PROVIDERS: Visit Provider Nurse Practitioner Family
DX: G47.10 Hypersomnia, unspecified (principal); R41.82 Altered mental status, unspecified
CPT/HCPCS: 80307

== ENCOUNTER 2024-11-10 09:04 | Outpatient (AMB) | payer OTHER, SELFPAY ==
[2024-11-10 09:05] VITALS: BP 128/84; PULSE 90; RESP 16; TEMP 36.2; O2SAT 98; BMI 35.8
--- NOTE | 2024-11-10 09:05 | A.OFFPC_ITS ---
Vital Signs 11/10/24 09:05 Height 5 ft 1 in Weight 189 lb 6 oz BMI 35.8 BP 128/84 Blood Pressure Location Lt brachial Position Sitting Respiration 16 Pulse 90 Pulse Source Pulse Oximeter Temp 97.1 F Temp Source Temporal Artery Scan Pulse Oximetry (%) 98 Oxygen Delivery Method Room Air Intake Visit Reasons: Annual exam Allergies latex Allergy (Unknown, Verified 11/10/24 09:08) rash minocycline Allergy (Unknown, Verified 11/10/24 09:08) unknown shellfish derived Adverse Reaction (Verified 11/10/24 09:08) Unknown Medication List - Last Reconciled 11/10/24 by Loan Herrera MD acyclovir 400 mg PO BID PRN epinephrine (EpiPen) 0.3 mg (0.3 mL) IM Q10M PRN loratadine (Claritin) 10 mg PO DAILY miconazole nitrate 2% (Miconazole-7) 1 appful vaginal BEDTIME 7 days modafinil 100 mg PO QAM 30 days ondansetron 4 mg PO Q8H PRN Tobacco use date assessed: 11/10/24 Dental Screening Dental Screen Date: 11/10/24 Did you have a dental visit in the last 12 months?: Yes Did you have a dental problem in the last 6 months where you did not have access to dental care?: No Was dental information given to patient?: Patient has dentist [facility] Medical History Perimenopausal symptoms Cervical cancer screening Well woman exam with routine gynecological exam Cellulitis Hypersomnia Annual physical exam History of irregular menstrual cycles Screen for sexually transmitted diseases Dysuria Well woman exam Yeast infection of the vagina Cholesterol granuloma of left middle ear Breast cancer screening Low back pain Allergic reaction Elevated blood sugar level Generalized anxiety disorder Cholesterol granuloma Screening due Recurrent cold sores BCP ( control pills) initiation History of vaginal pruritus Myalgia Vaginal pruritus Labial pain Vaginal discharge Urinary frequency Depression Retained placenta after delivery without hemorrhage but with other complication Somatic dysfunction of left sacroiliac joint Back pain Somatic dysfunction of right sacroiliac joint Body aches after vaccination Vitamin D deficiency Potential exposure to STD Surveillance for control, oral contraceptives Exposure to COVID-19 virus Fracture of middle phalanx of right ring finger Carpal tunnel syndrome GERD (gastroesophageal reflux disease) Obesity (BMI 30-39.9) Vaginal discharge Surgical History Hx of dilation and curettage Deficient knowledge of leg surgery Family History (Updated 11/10/24 @ 09:23 by Loan Herrera MD) Maternal Grandmother Heart disease Hypertension Father No problems noted. Mother Diabetes CVD (cardiovascular disease) Maternal Grandfather Heart disease Hypertension Myocardial infarction Maternal Aunt Ovarian ca CVD (cardiovascular disease) Maternal Uncle Diabetes Paternal Uncle Diabetes Social History (Updated 11/10/24 @ 09:25 by Loan Herrera MD) Housing: House Alcohol intake: current Alcohol intake frequency: 0-2 drinks per day Alcohol type: beer Comment: once a week 1-2 drinks Patient Tobacco Use Status: Never used Tobacco e-Cigarette/Vaping Use: Never Used Second Hand Smoke Exposure: No service: No Current occupational status: employed Current occupational exposures/hazards: No Gender identity: Female Cognitive needs: No Hearing needs: No Vision needs: No Female Reproductive History Menstrual Age of Menarche: 8 Questionnaire PHQ-9 Over the last 2 weeks, how often have you been bothered by any of the following problems? 1. Little interest or pleasure in doing things: several days 2. Feeling down, depressed, or hopeless: nearly every day 3. Trouble falling or staying asleep, or sleeping too much: nearly every day 4. Feeling tired or having little energy: nearly every day 5. Poor appetite or overeating: more than half the days 6. Feeling bad about yourself - or that you are a failure or have let yourself or your family down: not at all 7. Trouble concentrating on things, such as reading the newspaper or watching television: not at all 8. Moving or speaking so slowly that other people could have noticed. Or the opposite - being so fidgety or restless that you have been moving around a lot more than usual: nearly every day 9. Thoughts that you would be better off or of hurting yourself in some way: not at all Total score: 15 Depression Screening Interpretation: Positive Depression Screening Done: Yes 41516 - PHQ-9 Billing: Yes Source: Developed by Drs. Abdulkadir Goodson, Erika Cespedes, Nate Rodrigues and colleagues, with an educational sam from [employer]. Thrive Questionnaire Date Thrive assessed: 11/10/24 I am a: Patient What is your living situation today?: I have a steady place to live Within the past 12 months, did the food you bought not last and you didn't have the money to get more?: Never true Within the past 12 months, did you worry whether your food would run out before you got money to buy more?: Never true Do you have trouble paying for medicines?: No Do you have trouble getting transportation to medical appointments?: No Do you have trouble paying your heating and electricity bill?: No Do you have trouble taking care of your child, family member or friend?: No Do you have trouble with day-to-day activities such as bathing, preparing meals, shopping, managing finances, etc.?: No Are you currently unemployed and looking for a job?: No Are you interested in more education?: No Please select the resources that you would like help with: None THRIVE Score: 0 AUDIT C Alcohol Use Questionnaire (AUDIT-C) 1. How often do you have a drink containing alcohol?: Monthly or less 2. How many drinks containing alcohol do you have on a typical day when you are drinking?: 1 or 2 3. How often do you have six or more drinks on one occasion?: Never Total Score: 1 RIKI-7 AMB Questionnaire RIKI-7 Date RIKI - 7 assessed: 10/27/23 Feeling nervous, anxious, or on edge: 3 = Nearly every day Not being able to stop or control worryin = Nearly every day Worrying too much about different things: 3 = Nearly every day Trouble relaxin = Nearly every day Being so restless that it is hard to sit still: 2 = More than half the days Becoming easily annoyed or irritable: 3 = Nearly every day Feeling afraid as if something awful might happen: 2 = More than half the days Total RIKI-7 score (0-4 normal; 5-9 mild; 10-14 moderate; 15-21 severe): 19 Source: Developed by Drs. Abdulkadir Goodson, Erika Cespedes, Nate Rodrigues and colleagues, with an educational sam from [employer] RIKI-7 Assessment Billing RIKI-7 Assessment Tool: RIKI-7 Assessment 16748 Review of Systems Const Denies poor appetite and Denies weakness Eyes Denies no additional complaints ENT Reports Normal hearing present, Denies dizziness, Denies nasal congestion, Denies tinnitus and Denies sore throat Card Denies chest pain, Denies syncope, Denies rapid heart rate and Denies dyspnea Resp Denies cough and Denies dyspnea GI Denies change in stool character, Reports constipation, Denies diarrhea, Denies nausea and Denies vomiting Denies urinary frequency, Denies difficulty voiding and Denies dysuria Neuro Reports Normal hearing present, Denies confusion, Denies dizziness, Denies synco pe and Denies weakness Psych Denies confusion Physical exam (Primary Care) Vital Signs: Last Vital Signs Temp 97.1 F 11/10/24 09:05 Pulse 90 11/10/24 09:05 Resp 16 11/10/24 09:05 BP 128/84 11/10/24 09:05 Pulse Ox 98 11/10/24 09:05 Oxygen Delivery Method Room Air 11/10/24 09:05 BMI result Body Mass Index 35.8 Tobacco/Smoking Status: Tobacco use Status Tobacco use date assessed 11/10/24 11/10/24 09:10 Patient Tobacco Use Status Never used Tobacco 11/10/24 09:25 Tobacco use type 02/22/24 09:09 e-Cigarette/Vaping Use Never Used 11/10/24 09:25 PHQ-9: PHQ-9 Score PHQ-9: Total score 15 11/10/24 09:18 Depression Screening Interpretation: Positive Thrive Assessment: Date of Thrive Assessment Date Thrive assessed 11/10/24 11/10/24 09:10 Const General: No confusion Orientation/consciousness: No confusion HENMT Head: Yes normocephalic Ears: external ears normal and TM's normal bilaterally Face and sinus: Yes normal facial exam Mouth: moist mucous membranes Throat: Yes tonsils normal Eyes Conjunctivae: conjunctivae normal Pupils: Equal, round and reactive pupils present and Pupil accommodation reflex normal Direct Ophthalmoscopy: normal light reflex Neck Neck: No lymphadenopathy Thyroid: Thyroid normal Chest Chest palpation & inspection: normal inspection of the chest Resp Effort & Inspection: normal respiratory effort and no audible wheezes Auscultation: clear to auscultation bilaterally, no crackles, no wheezes and lung sounds not diminished Cardio Rate: regular rate Rhythm: regular rhythm Peripheral pulses: radial pulses present and dorsalis pedis present GI Palpation (GI): no masses Auscultation: normal bowel sounds and normoactive bowel sounds Rectal Exam - Female: deferred Skin General skin exam: no rashes or lesions noted Rashes: no rashes Neuro General: No confusion Cranial nerves: Yes Equal, round and reactive pupils present and Yes Normal hearing present Cognition (Neuro): normal cognition Gait exam (Neuro): Normal gait present Motor exam (neuro): 5/5 motor strength present throughout Deep tendon reflexes (DTR's): Right brachioradialis reflex intensity grade: 2+, Left brachioradialis reflex intensity grade: 2+, Right patellar reflex intensity grade: 2+ and Left patellar reflex intensity grade: 2+ Extrem General: No edema Coding Level of Care Code Est Pt Prev Care 40-64y(89169) Diagnoses Impaired glucose tolerance R73.02 Obesity (BMI 30-39.9) E66.9 GERD (gastroesophageal reflux disease) K21.9 Migraine without aura G43.009 Hypersomnia G47.10 Annual physical exam Z00.00 Hearing difficulty H91.90 Additional Codes RIKI-7 Assessment Billing - RIKI-7 Assessment Tool: RIKI-7 Assessment 19411 ([id number]) PHQ-9 - 11021 - PHQ-9 Billing: Yes ([id number]) Assessment & Plan Assessment & Plan (1) Impaired glucose tolerance: Code(s): R73.02 - Impaired glucose tolerance (oral) Category: Medical Plan: Decrease the amount of carbohydrate intake, pasta, bread, rice and potatoes are all sugar and that is aside from all the sweet stuff, remember that fruits are good but they are Sweet also. (2) Obesity (BMI 30-39.9): Code(s): E66.9 - Obesity, unspecified Category: Medical Plan: Diet and exercise (3) GERD (gastroesophageal reflux disease): Code(s): K21.9 - Gastro-esophageal reflux disease without esophagitis Category: Medical Plan: Avoid the foods that causes that usually spicy foods, tomato products, juices, coffee, soda and foods that your sensitive to. After eating do not lie down, allow 3-4 hours before in lie down. And keep the head of bed above 30 degrees to avoid the acid from going up. (4) Migraine without aura: Code(s): G43.009 - Migraine without aura, not intractable, without status migrainosus Category: Medical Plan: Patient continues to follow-up with Neurology. Patient is advised to eat healthy, keep well hydrated, keep active and have adequate sleep. (5) Hypersomnia: Comment: Sleep study June 2024 negative Code(s): G47.10 - Hypersomnia, unspecified Category: Medical Plan: Patient had a sleep study done which revealed negative results. Patient was prescribed with modafinil (6) Annual physical exam: Code(s): Z00.00 - Encounter for general adult medical examination without abnormal findings Category: Medical Plan: Patient is advised to eat healthy, keep well hydrated, keep active and have adequate sleep. (7) Hearing difficulty: Code(s): H91.90 - Unspecified hearing loss, unspecified ear Category: Medical Plan History of Present Illness The patient is a 39-year-old female presenting for a physical examination and management of chronic conditions. The patient has a history of obesity and has recently noted an 8-pound weight loss. She has been attending a weight management clinic to address this issue. The patient has a history of Gastroesophageal Reflux Disease (GERD) and Generalized Anxiety Disorder. She reports mild heartburn that has not occurred recently. The patient experienced a peritonsillar abscess in the left side, for which she was treated with antibiotics. No drainage was performed at the time of treatment. The patient has a history of vitamin D deficiency and elevated blood glucose [facility]. Her blood sugar was noted to be mildly elevated at 113 mg/dL, although no hemoglobin A1c was available at that time. The patient underwent a sleep study in June 2024, which revealed negative results. She was prescribed modafinil but reports continued sleepiness around 2 PM. The patient reports hearing loss, feeling that she hears better in one ear than the other. She is considering getting her hearing tested. Health Maintenance - Up to date with Pap smear and mammogram - Tetanus vaccination is current - Blood sugar monitoring due to mild elevation - Vitamin D supplementation recommended Social History - Alcohol consumption: Occasionally, about once a week, usually one or two drinks - No tobacco or recreational drug use - Exercise: Engages in physical activity, such as walking at the [employer] Review of Systems - General: Reports weight loss of 8 pounds - ENT: Reports hearing loss, better hearing in one ear - Cardiovascular: Denies chest pain or palpitations - Respiratory: Denies shortness of breath or cough - Gastrointestinal: Reports mild heartburn, denies nausea or vomiting - Neurological: Reports dizziness, denies headaches - Musculoskeletal: Denies joint pain or swelling - Genitourinary: Denies dysuria, nocturia once occasionally Physical Exam General: Cooperative, healthy appearing, comfortable, no acute distress and well developed Orientation: Patient oriented x3 Limitations: No limitations Head: Normal to inspection Ears: Hearing reported as horrible, feels better on one ear than the other Nose: Normal external nose present Face and sinus: Normal facial exam Eyes: Appearance normal, both eyes and all related structures; noted leakage in the back of the left eye Neck: Normal visual inspection and Yes full ROM Respiratory: Normal respiratory effort and able to speak in complete sentences. Clear to auscultation bilaterally Cardiovascular: Regular rate and rhythm. Normal S1 and S2 GI: Normal to inspection. Soft to palpation and nontender Skin: No rashes or lesions noted Neuro: Patient oriented x3 Extremities: Normal to inspection Results - Labs: Blood sugar mildly elevated at 113 mg/dL - Labs: Vitamin D low - Tests: Sleep study in June 2024 was negative - Imaging: Knee X-ray in October 2023 was normal Plan The patient will continue attending the weight management clinic to address obesity and maintain her recent weight loss. For her GERD, she should continue monitoring symptoms and report any recurrence of heartburn. The patient should follow up with her primary care provider regarding her elevated blood glucose levels and consider dietary modifications to manage this. Vitamin D supplementation is recommended due to her deficiency. She should continue using modafinil as prescribed and discuss with her neurologist if her sleepiness persists. A hearing test is advised to evaluate her reported hearing loss. Patient was informed and verbally consented to the use of an ambient scribe for clinic note documentation during this visit. Discussion Notes During the visit, we discussed the patient's ongoing management of obesity through the weight management clinic and the importance of maintaining her recent weight loss. We reviewed her GERD symptoms and advised her to monitor for any recurrence of heartburn. We addressed her elevated blood glucose levels and recommended dietary modifications. Vitamin D supplementation was advised due to her deficiency. We discussed her use of modafinil for sleepiness and advised her to consult with her neurologist if symptoms persist. A hearing test was recommended to evaluate her reported hearing loss. Patient Instructions - Continue attending the weight management clinic and maintain recent weight loss. - Monitor GERD symptoms and report any recurrence of heartburn. - Follow up with primary care provider regarding elevated blood glucose levels and consider dietary changes. - Take vitamin D supplements as recommended. - Continue using modafinil as prescribed and consult neurologist if sleepiness persists. - Schedule a hearing test to evaluate hearing loss. Orders: Orders Comprehensive Met. Panel Today R73.02 - Impaired glucose tolerance (oral) Vitamin B12 and Folate Today R73.02 - Impaired glucose tolerance (oral) UA CC w/rflx Micro + Cult Today R30.0 - Dysuria, R73.02 - Impaired glucose tolerance (oral) Complete Blood Count Auto Diff Today R73.02 - Impaired glucose tolerance (oral) Free T4 (Free Thyroxine) Today R73.02 - Impaired glucose tolerance (oral) Thyroid Stimulating Hormone Today R73.02 - Impaired glucose tolerance (oral) Hemoglobin A1c Today R73.02 - Impaired glucose tolerance (oral) Vitamin D 25-OH Total Today R73.02 - Impaired glucose tolerance (oral) Lipid Panel Today E78.00 - Pure hypercholesterolemia, unspecified, R73.02 - Impaired glucose tolerance (oral) Referrals Speech and Hearing Referral H91.90 - Unspecified hearing loss, unspecified ear Medications: Changed From acyclovir 400 mg (2 x 200 mg) PO BID 90 days 360 caps 0RF B00.1 - Herpesviral vesicular dermatitis To acyclovir 400 mg PO BID PRN B00.1 - Herpesviral vesicular dermatitis Refilled ondansetron 4 mg PO Q8H PRN 15 tabs 0RF nausea and vomiting H91.90 - Unspecified hearing loss, unspecified ear
--- OUTSIDE RECORDS SUMMARY | 2024-11-10 09:20 | XMS_ITS | Clinical Summary ---
Author Organization [employer] Address [address] [facility] [address] [place] [address] Care Team Providers Care General Accounting Manager Name Role Phone Unavailable Primary Care Provider [...] 1984 HIV Screening 1984 SDOH Screening 1984 Disability Screening 1984 Alcohol/Substance Use Screening 1996 Family Planning (PISQ) 1999 HPV Vaccines (1 - 3-dose series) 1999 Hepatitis C Screening 2002 Pap Smear 2005 DTaP/Tdap/Td Vaccines (5 - Tdap) 07/02/2008 07/02/1998, 09/09/1997, 05/12/1996, Additional history exists Cervical Cancer Screening 2014 HPV/Cotest 2014 Tobacco Screening 08/08/2023 08/07/2022 Dental X-Ray: Bitewings 08/09/2023 08/07/2022 COVID-19 Vaccine ( season) 2023 05/10/2020, 04/10/2020 Mammogram 2024 Influenza Vaccine (#1) 2024 01/24/2020 Zoster Vaccines (1 of 2) 2034 RSV [...] patient's age to complete this topic Meningococcal B Vaccine Aged Out No l onger eligible based on patient's age to complete this topic Meningococcal Vaccine Aged Out No dianna fred eligible based on patient's age to complete this topic Pneumococcal Vaccine: Pediatrics (0 to 5 Years) and At-Risk Patients (6 to 49) Years Aged Out No longer eligible based on [...]
--- OUTSIDE RECORDS SUMMARY | 2024-11-10 09:20 | XMS_ITS | Clinical Summary ---
Author Organization [facility] Address [address] [place] [address] Phone Care Team Providers Care Fence Builder Name Role Phone Unavailable Primary Care Provider [...] 07/02/2008 07/02/1998, 09/09/1997, 05/12/1996, Additional history exists COVID-19 Vaccine (2023- season) 2023 Influenza Vaccines (#1) 2024 MMR Vaccines Completed 09/10/1995, 03/22/1995 Hepatitis B [...]
== END 2024-11-10 09:47 | disposition home or self-care (01) ==
PROVIDERS: PCP Internal Medicine; Visit Provider Internal Medicine
DX: Z00.00 Encounter for general adult medical examination without abnormal findings (principal); R73.02 Impaired glucose tolerance (oral); E66.9 Obesity, unspecified; Z68.35 Body mass index [BMI] 35.0-35.9, adult; K21.9 Gastro-esophageal reflux disease without esophagitis; G43.009 Migraine without aura, not intractable, without status migrainosus; G47.10 Hypersomnia, unspecified; H91.90 Unspecified hearing loss, unspecified ear

== ENCOUNTER → 2024-11-10 09:04 | Outpatient (BNVA) | payer OTHER, SELFPAY | PROVIDERS: PCP Internal Medicine; Visit Provider Internal Medicine | DX: Z00.00 Encounter for general adult medical examination without abnormal findings (principal); R73.02 Impaired glucose tolerance (oral); E66.9 Obesity, unspecified; Z68.35 Body mass index [BMI] 35.0-35.9, adult; K21.9 Gastro-esophageal reflux disease without esophagitis; G43.009 Migraine without aura, not intractable, without status migrainosus; G47.10 Hypersomnia, unspecified; H91.90 Unspecified hearing loss, unspecified ear; Z13.31 Encounter for screening for depression | CPT/HCPCS: 96127 ==

== ENCOUNTER 2024-12-18 13:30 | Outpatient (AMB) | payer OTHER, SELFPAY ==
[2024-12-18 13:37] VITALS: BP 110/60; PULSE 70; O2SAT 97; BMI 35.7
--- NOTE | 2024-12-18 13:37 | A.OFFVIS_ITS ---
Vital Signs 12/18/24 13:37 Height 5 ft 1 in Weight 189 lb BMI 35.7 BP 110/60 Blood Pressure Location Rt brachial Position Sitting Pulse 70 Pulse Source Pulse Oximeter Pulse Oximetry (%) 97 Oxygen Delivery Method Room Air Intake Visit Reasons: follow up Intake Note: Patient presents follow up for migraines. Migraines appear to be better since previous visit. Still feeling fatigued no matter how much sleep she gets Cad Technician Required: No Accompanied by: Self / Same As Patient Allergies latex Allergy (Unknown, Verified 12/18/24 13:40) rash minocycline Allergy (Unknown, Verified 12/18/24 13:40) unknown shellfish derived Adverse Reaction (Verified 12/18/24 13:40) Unknown Medication List - Last Reconciled 12/18/24 by JOHNY Wilkins acyclovir 400 mg PO BID PRN epinephrine (EpiPen) 0.3 mg (0.3 mL) IM Q10M PRN loratadine (Claritin) 10 mg PO DAILY miconazole nitrate 2% (Miconazole-7) 1 appful vaginal BEDTIME 7 days modafinil 100 mg PO QAM 30 days ondansetron 4 mg PO Q8H PRN HPI Comments Details: 39-year-old female presents for follow-up of 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 07/09/2024 in-lab PSG showed no evidence of sleep apnea, PLMS 18/hr, and 07/10/2024 In-lab MSLT, the patient fell asleep during 5 out of 5 nap opportunities, with an average sleep latency of 3 minutes After reviewing the above sleep studies, the patient was started on modafinil 100 mg daily in the morning. Patient reports she wakes up in the am, may be a bit sleepy and groggy, and then will have a burst of energy for a few hours, then is again sleepy, and then will have another burst of energy. When inactive, she can easily fall asleep, even with taking Modafinil. She just started Magnesium, so not sure if it's helping. She states that she often sleeps well, but at times, it can feel like it is hard to fall asleep or get into a deep sleep. Tries to wake up at 6 am constantly, but now trying to wake up twice a week at 4:30 am to go to the gym. But not on the week, she works her 2nd job. 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 Every other week, she works two days in a second job at a [employer], between 7 pm and 11 pm or 7 pm and 2 am. Patient also reports she has not had any bothersome headaches recently. 05/01/2024, initial HPI: 39-yr-old female presents for new in-person patient visit for sleep consultation. Patient reports she has always been sleepy, even as a child, teenager, and early adulthood. However, she has been feeling more sleepy lately, which she attributes to no longer being able to take naps d/t her daily schedule. PMH includes anemia, anemia, GERD, obesity. Sleep history questionnaire: Have you ever been diagnosed with a sleep disorder? no Have you ever had a sleep study in the past? Yes, in-lab PSG about 5 years ago, was told it was normal. Have you ever been treated for a sleep disorder? No Do you take medications/supplements for a sleep disorder? Occasionally, melatonin to help her stay asleep. Current sleep symptom questionnaire: Pt reports difficulty maintaining sleep, unrefreshing sleep, daytime sleepiness, easily falls asleep when inactive, fatigue. Pt reports mild snoring, rare nocturnal gasping, rare nocturnal chest pain. Pt denies nocturnal dry mouth, nocturnal dry throat. Pt denies bruxism. Pt reports headaches upon awakening and going to bed. Has never had a migraine dx. Headache is a/w photo/phobia/nausea. Pt reports rare GERD. Pt denies nocturia. 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 nocturnal leg cramps, Left sided restless/urge to move, restlessness, in the past creepy crawling sensation,. Pt reports ruminating thoughts, rare sleep paralysis, hypnagogic hallucination, vivid dreams. Pt endorses family h/o similar sleep s/s- sister, son. 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 Usual bedtime is at 9:30-10pm, but ideal is 7:30pm Usual time to fall asleep pretty quickly Usual wake-up time 5:45-6am weekdays, 8am weekends Usual out of bed time is at 6am Naps: Takes unintentional unscheduled naps Sleep environment: comfortable, cool, dark, quiet Electronic use in bedroom: Rare phone use- but will fall asleep Exercise: None Caffeine or other stimulants: 1 cups of coffee per day, rarely a second cup. Alcohol: social Marijuana: None PFSH Medical History Perimenopausal symptoms Cervical cancer screening Well woman exam with routine gynecological exam Cellulitis Hypersomnia Annual physical exam History of irregular menstrual cycles Screen for sexually transmitted diseases Dysuria Well woman exam Yeast infection of the vagina Cholesterol granuloma of left middle ear Breast cancer screening Low back pain Allergic reaction Elevated blood sugar level Generalized anxiety disorder Cholesterol granuloma Screening due Recurrent cold sores BCP ( control pills) initiation History of vaginal pruritus Myalgia Vaginal pruritus Labial pain Vaginal discharge Urinary frequency Depression Retained placenta after delivery without hemorrhage but with other complication Somatic dysfunction of left sacroiliac joint Back pain Somatic dysfunction of right sacroiliac joint Body aches after vaccination Vitamin D deficiency Potential exposure to STD Surveillance for control, oral contraceptives Exposure to COVID-19 virus Fracture of middle phalanx of right ring finger Carpal tunnel syndrome GERD (gastroesophageal reflux disease) Obesity (BMI 30-39.9) Vaginal discharge Surgical History Hx of dilation and curettage Deficient knowledge of leg surgery Family History (Updated 11/10/24 @ 09:23 by Loan Herrera MD) Maternal Grandmother Heart disease Hypertension Father No problems noted. Mother Diabetes CVD (cardiovascular disease) Maternal Grandfather Heart disease Hypertension Myocardial infarction Maternal Aunt Ovarian ca CVD (cardiovascular disease) Maternal Uncle Diabetes Paternal Uncle Diabetes Social History (Updated 11/10/24 @ 09:25 by Loan Herrera MD) Housing: House Alcohol intake: current Alcohol intake frequency: 0-2 drinks per day Alcohol type: beer Comment: once a week 1-2 drinks Patient Tobacco Use Status: Never used Tobacco e-Cigarette/Vaping Use: Never Used Second Hand Smoke Exposure: No service: No Current occupational status: employed Current occupational exposures/hazards: No Gender identity: Female Cognitive needs: No Hearing needs: No Vision needs: No Female Reproductive History Menstrual Age of Menarche: 8 Physical Exam Vital Signs: Last Vital Signs Pulse 70 12/18/24 13:37 BP 110/60 12/18/24 13:37 Pulse Ox 97 12/18/24 13:37 Oxygen Delivery Method Room Air 12/18/24 13:37 BMI result Body Mass Index 35.7 Const General: no acute distress Orientation/consciousness: patient oriented x3 HEENT Other: Mallampati stage 2 Resp Effort & Inspection: normal respiratory effort and able to speak in complete sentences Cardio Rate: regular rate Rhythm: regular rhythm Neuro General: patient oriented x3 and deep tendon reflexes 2+ bilaterally Cranial nerves: Yes CN's II-XII intact bilaterally, Yes Bilaterally intact EOM present and Yes Midline tongue present Gait exam (Neuro): Normal gait present Motor exam (neuro): 5/5 motor strength present throughout Coordination: [id number] test normal and tandem gait normal Romberg Test: Negative Psych Mental Status: mental status grossly normal Speech and movement: Clear speech present Attitude: cooperative Assessment & Plan Assessment & Plan (1) Hypersomnia: Comment: Positive MSLT Code(s): G47.10 - Hypersomnia, unspecified Category: Medical (2) Migraine without aura: Code(s): G43.009 - Migraine without aura, not intractable, without status migrainosus Category: Medical Qualifiers: Status migrainosus presence: without status migrainosus Intractability: not intractable Qualified Code(s): G43.009 - Migraine without aura, not intractable, without status migrainosus Plan Or idiopathic hypersomnia: Reviewed results of the interval in-lab PSG and MSLT study, which showed hypersomnia without any occurrence of sleep onset REM activity. Increase modafinil from 100 mg daily in a.m. to 200 mg daily in a.m. (or 100 mg twice a day, last dose by 12:00) Encouraged patient to set a consistent wake-up time. Encouraged patient to continue exercising regularly. Information previously shared on sleep hygiene, idiopathic hypersomnia, cognitive behavioral therapy (CBTi), and restless leg educational resources. Check labs for common etiologies of fatigue and paresthesias. PT eval and treat for cervicalgia and LUE/LLE numbness and tingling. For migraine without aura: Continue magnesium 400 mg daily at bedtimeTrial Sumatriptan 100mg tab, 1/2 - 1 tab (50-100mg) at onset of headache, may repeat in 2 hours. Max of 2 tabs (200mg) per 24 hours. May take OTC Tylenol 650-1,000mg every 4-6 hours, Ibuprofen (liquid gels) 600mg every 6 hours, or Naproxen (liquid gels) 440mg q 12 hrs prn. We will request patient complete migraine questionnaire prior to her follow-up appointment Pt to follow-up in 6 months or sooner prn. Medications: Changed From modafinil 100 mg PO QAM 30 days 30 tabs 1RF To modafinil dose increased on 12/18/2024 200 mg (2 x 100 mg) PO QAM 60 tabs 1RF 30 days Coding Level of Care Code Est Pt Level 4 (42345) Diagnoses Hypersomnia G47.10 Migraine without aura and without status migrainosus, not intractable G43.009 Status migrainosus presence: without status migrainosus Intractability: not intractable
--- OUTSIDE RECORDS SUMMARY | 2024-12-18 15:45 | XMS_ITS | Clinical Summary ---
Author Organization [employer] Address [address] [facility] [address] [place] [address] Care Team Providers Care Stockfeed Miller Name Role Phone Unavailable Primary Care Provider [...] 08/08/2023 08/07/2022 Dental X-Ray: Bitewings 08/09/2023 08/07/2022 Mammogram 2024 COVID-19 Vaccine (3 - season) 2024 05/10/2020, 04/10/2020 Influenza Vaccine (#1) 2024 01/24/2020 Zoster Vaccines [...]
--- OUTSIDE RECORDS SUMMARY | 2024-12-18 15:45 | XMS_ITS | Clinical Summary ---
Author Organization [facility] Address [address] [place] [address] Phone Care Team Providers Care Manager Sales And Marketing Name Role Phone Unavailable Primary Care Provider [...] 07/02/2008 07/02/1998, 09/09/1997, 05/12/1996, Additional history exists HPV Vaccines (1 - 3-dose SCDM series) 2011 Influenza Vaccines (#1) 2024 COVID-19 Vaccine ( season) 2024 MMR Vaccines Completed 09/10/1995, 03/22/1995 Hepatitis [...]
== END 2024-12-18 14:33 | disposition home or self-care (01) ==
LOC: HO.HSMS 13:31
PROVIDERS: PCP Internal Medicine; Visit Provider Nurse Practitioner Family
DX: G47.10 Hypersomnia, unspecified (principal); G43.009 Migraine without aura, not intractable, without status migrainosus
CPT/HCPCS: 99214

== ENCOUNTER 2025-01-19 14:50 | Outpatient (AMB) | payer OTHER, SELFPAY ==
[2025-01-19 14:55] VITALS: BP 128/64; PULSE 84; TEMP 36.7; O2SAT 99; BMI 35.0
--- NOTE | 2025-01-19 14:55 | MHC.OFFWIV ---
Intake Vital Signs 01/19/25 14:55 Height 5 ft 1 in Weight 185 lb BMI 35.0 BP 128/64 Blood Pressure Location Lt brachial Position Sitting Pulse 84 Pulse Source Pulse Oximeter Temp 98.0 F Temp Source Oral Pulse Oximetry (%) 99 Oxygen Delivery Method Room Air Intake Visit Reasons: ep possible uti Patient Tobacco Use Status: Never used Tobacco Allergies latex Allergy (Unknown, Verified 01/19/25 15:03) rash minocycline Allergy (Unknown, Verified 01/19/25 15:03) unknown shellfish derived Adverse Reaction (Verified 01/19/25 15:03) Unknown Do you need a note to return to daycare/school/sports/work: No HPI HPI Comments History of Present Illness Details History - The patient is a 39-year-old female presenting with symptoms suggestive of a recurrent vulvovaginal candidiasis and possible urinary tract infection. - The patient reports a history of recurrent yeast infections over the past three to four years. - Symptoms today including discomfort, itching, and burning, primarily inside the vagina. She states her labia are red. - She has been self-treating with [id number] antifungal medications and Diflucan, with partial relief. - The patient reports mild burning with urination and increased frequency of urination starting yesterday, which she attributes to her high fluid intake. Denies fevers or back pain beyond baseline sciatica or abdominal pain. Physical Exam General: Cooperative, healthy appearing, comfortable, no acute distress and well developed Orientation: Patient oriented x3 Limitations: No limitations Head: Normal to inspection Ears: Hearing grossly normal bilaterally Face and sinus: Normal facial exam Neck: Normal visual inspection and Yes full ROM Respiratory: Normal respiratory effort and able to speak in complete sentences. Skin: No rashes or lesions noted Neuro: Patient oriented x3 Review of Systems - Genitourinary: Reports discomfort, itching, and burning inside the vagina. Reports mild burning with urination and increased frequency of urination. - Denies fever, abdominal pain, or back pain beyond baseline sciatica. All systems reviewed and are unremarkable except as noted in HPI [facility] Medical History Perimenopausal symptoms Cervical cancer screening Well woman exam with routine gynecological exam Cellulitis Hypersomnia Annual physical exam History of irregular menstrual cycles Screen for sexually transmitted diseases Dysuria Well woman exam Yeast infection of the vagina Cholesterol granuloma of left middle ear Breast cancer screening Low back pain Allergic reaction Elevated blood sugar level Generalized anxiety disorder Cholesterol granuloma Screening due Recurrent cold sores BCP ( control pills) initiation History of vaginal pruritus Myalgia Vaginal pruritus Labial pain Vaginal discharge Urinary frequency Depression Retained placenta after delivery without hemorrhage but with other complication Somatic dysfunction of left sacroiliac joint Back pain Somatic dysfunction of right sacroiliac joint Body aches after vaccination Vitamin D deficiency Potential exposure to STD Surveillance for control, oral contraceptives Exposure to COVID-19 virus Fracture of middle phalanx of right ring finger Carpal tunnel syndrome GERD (gastroesophageal reflux disease) Obesity (BMI 30-39.9) Vaginal discharge Surgical History Hx of dilation and curettage Deficient knowledge of leg surgery Family History (Updated 11/10/24 @ 09:23 by Loan Herrera MD) Maternal Grandmother Heart disease Hypertension Father No problems noted. Mother Diabetes CVD (cardiovascular disease) Maternal Grandfather Heart disease Hypertension Myocardial infarction Maternal Aunt Ovarian ca CVD (cardiovascular disease) Maternal Uncle Diabetes Paternal Uncle Diabetes Social History (Updated 11/10/24 @ 09:25 by Loan Herrera MD) Housing: House Alcohol intake: current Alcohol intake frequency: 0-2 drinks per day Alcohol type: beer Comment: once a week 1-2 drinks Patient Tobacco Use Status: Never used Tobacco e-Cigarette/Vaping Use: Never Used Second Hand Smoke Exposure: No service: No Current occupational status: employed Current occupational exposures/hazards: No Gender identity: Female Cognitive needs: No Hearing needs: No Vision needs: No Female Reproductive History Menstrual Age of Menarche: 8 Physical Exam Vital Signs: Last Vital Signs Temp 98.0 F 01/19/25 14:55 Pulse 84 01/19/25 14:55 BP 128/64 01/19/25 14:55 Pulse Ox 99 01/19/25 14:55 Oxygen Delivery Method Room Air 01/19/25 14:55 BMI result Body Mass Index 35.0 Results AMB Urinalysis, Automated UA Leukoctes 500 Divine/uL Last Edit by Margy Oliveros MA on 01/19/25 15:07 UA Nitrite Negative Last Edit by Margy Oliveros MA on 01/19/25 15:07 UA Urobilinogen 0.2 mg/dL Last Edit by Margy Oliveros MA on 01/19/25 15:07 UA Protein 0 mg/dL Last Edit by Margy Oliveros MA on 01/19/25 15:07 UA pH 6.0 Last Edit by Margy Oliveros MA on 01/19/25 15:07 UA Blood 0 Mati/uL Last Edit by Margy Oliveros MA on 01/19/25 15:07 UA Specific Raymond 1.020 Last Edit by Margy Oliveros MA on 01/19/25 15:07 UA Ketone Negative Last Edit by Margy Oliveros MA on 01/19/25 15:07 UA Bilirubin 0 mg/dL Last Edit by Margy Oliveros MA on 01/19/25 15:07 UA Glucose 0 mg/dL Last Edit by Margy Oliveros MA on 01/19/25 15:07 Results Reviewed Results Reviewed: Laboratory Last Values Urine pH (Auto) 6.0 01/19/25 14:57 Specific Raymond (Auto) 1.020 01/19/25 14:57 Urine Protein (Auto) 0 mg/dL 01/19/25 14:57 Glucose (UA)(Auto) 0 mg/dL 01/19/25 14:57 Urine Ketones (Auto) Negative 01/19/25 14:57 Urine Blood (Auto) 0 Mati/uL 01/19/25 14:57 Urine Nitrite (Auto) Negative 01/19/25 14:57 Urine Bilirubin (Auto) 0 mg/dL 01/19/25 14:57 Urine Urobilinogen (Auto) 0.2 mg/dL 01/19/25 14:57 Leukocyte Esterase (Auto) 500 Divine/uL H* 01/19/25 14:57 Assessment & Plan Assessment & Plan (1) Vaginal pruritus: Code(s): N89.8 - Other specified noninflammatory disorders of vagina Plan: Plan - UA 3+ leuks, negative nitrites, negative blood. - Initiate antibiotic therapy for possible urinary tract infection due to presence of white blood cells in urine and symptoms, pending culture results. - Prescribe Diflucan for potential yeast infection, to be taken if BV panel confirms yeast presence. - Patient self swabbed for Bacterial Vaginosis Panel. - Plan to review urine culture results and adjust treatment accordingly, with instructions to discontinue antibiotics if culture is negative. Patient was informed and verbally consented to the use of an ambient scribe for clinic note documentation during this visit. (2) UTI (urinary tract infection): Code(s): N39.0 - Urinary tract infection, site not specified Qualifiers: Urinary tract infection type: acute cystitis Hematuria presence: without hematuria Qualified Code(s): N30.00 - Acute cystitis without hematuria Plan: as above Orders: Orders AMB Urinalysis Automated Today Z13.9 - Encounter for screening, unspecified Bacterial Vaginosis Panel Today N89.8 - Other specified noninflammatory disorders of vagina Urine Culture Today N39.0 - Urinary tract infection, site not specified Medications: New cefdinir 300 mg (12 mL) PO BID 120 mL 0RF 5 days fluconazole may repeat second dose 72 hrs after first dose if symptoms persist 150 mg PO Q3D 2 tabs 0RF Coding Level of Care Code Est Pt Level 3 (18272) Diagnoses Vaginal pruritus N89.8 Acute cystitis without hematuria N30.00 Urinary tract infection type: acute cystitis Hematuria presence: without hematuria
== END 2025-01-19 15:29 | disposition home or self-care (01) ==
PROVIDERS: PCP Internal Medicine; Visit Provider Physician Assistant
DX: N89.8 Other specified noninflammatory disorders of vagina (principal); N30.00 Acute cystitis without hematuria; Z13.9 Encounter for screening, unspecified

== ENCOUNTER 2025-01-19 14:50 | Outpatient (REF) | payer OTHER, SELFPAY ==
[2025-01-20 02:47] LABS: Bacterial Vaginosis PCR NEGATIVE (Negative); Candida Group PCR DETECTED (Not Detect); Candida glab krusei PCR NOT DETECTED (Not Detect); Trichomonas vaginalis PCR NOT DETECTED (Not Detect)
== END 2025-01-19 14:51 | disposition home or self-care (01) ==
LOC: HO.LAB 14:50
PROVIDERS: PCP Internal Medicine; Visit Provider Physician Assistant
DX: N30.00 Acute cystitis without hematuria (principal); N89.8 Other specified noninflammatory disorders of vagina; Z20.2 Contact with and (suspected) exposure to infections with a predominantly sexual mode of transmission
CPT/HCPCS: 81003; 81515; 87086

== ENCOUNTER 2025-01-23 09:12 | Outpatient (AMB) | payer OTHER, SELFPAY ==
--- NOTE | 2025-01-23 09:13 | A.OFFVIS_ITS ---
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 (Sharmin) Accompanied by: Self / Same As Patient Allergies latex Allergy (Unknown, Verified 01/23/25 09:19) rash minocycline Allergy (Unknown, Verified 01/23/25 09:19) unknown shellfish derived Adverse Reaction (Verified 01/23/25 09:19) Unknown Medication List - Last Reconciled 01/23/25 by Nohemi Conde CNM acyclovir 400 mg PO BID PRN cefdinir 300 mg (12 mL) PO BID 5 days epinephrine (EpiPen) 0.3 mg (0.3 mL) IM Q10M PRN fluconazole 150 mg PO Q3D loratadine (Claritin) 10 mg PO DAILY modafinil 200 mg (2 x 100 mg) PO QAM 30 days ondansetron 4 mg PO Q8H PRN Is last menstrual period known: Yes Last menstrual period: 12/30/24 Post menopausal: No Patient : No HPI HPI Yeast infection: Details: Patient is here for a check because of vaginal burning and itching she also wants an STD check just to be sure even though she was checked at the walk-in clinic on 01/19 which was Wednesday. She was assessed and treated for possible UTI and yeast. Review of the results shows that the culture showed 50 K mixed charisse. Her symptoms included vaginal itching and burning they are still present but are better she has taken 1 Diflucan and is about to be taking the 2nd 1 today she also had been using the Monistat 7 cream. She still feels a little bit burning and a little itching at night. She forgot to take the antibiotic for the last day and a half. 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 She is tired of taking the Diflucan and she is nervous even though she says her partner says he is monogamous with her she is very conscious of germs because of her work awareness and self-awareness so she would like to be double checked. [facility] Medical History (Updated 01/23/25 @ 10:04 by Nohemi Conde CNM) Yeast infection of the vagina Vaginal pruritus Perimenopausal symptoms Cervical cancer screening Well woman exam with routine gynecological exam Cellulitis Hypersomnia Annual physical exam History of irregular menstrual cycles Screen for sexually transmitted diseases Dysuria Well woman exam Cholesterol granuloma of left middle ear Breast cancer screening Low back pain Allergic reaction Elevated blood sugar level Generalized anxiety disorder Cholesterol granuloma Screening due Recurrent cold sores BCP ( control pills) initiation History of vaginal pruritus Myalgia Labial pain Vaginal discharge Urinary frequency Depression Retained placenta after delivery without hemorrhage but with other complication Somatic dysfunction of left sacroiliac joint Back pain Somatic dysfunction of right sacroiliac joint Body aches after vaccination Vitamin D deficiency Potential exposure to STD Surveillance for control, oral contraceptives Exposure to COVID-19 virus Fracture of middle phalanx of right ring finger Carpal tunnel syndrome GERD (gastroesophageal reflux disease) Obesity (BMI 30-39.9) Vaginal discharge Surgical History Hx of dilation and curettage Deficient knowledge of leg surgery Family History Maternal Grandmother Heart disease Hypertension Father No problems noted. Mother Diabetes CVD (cardiovascular disease) Maternal Grandfather Heart disease Hypertension Myocardial infarction Maternal Aunt Ovarian ca CVD (cardiovascular disease) Maternal Uncle Diabetes Paternal Uncle Diabetes Social History Housing: House Alcohol intake: current Alcohol intake frequency: 0-2 drinks per day Alcohol t ype: beer Comment: once a week 1-2 drinks Patient Tobacco Use Status: Never used Tobacco e-Cigarette/Vaping Use: Never Used Second Hand Smoke Exposure: No service: No Current occupational status: employed Current occupational exposures/hazards: No Gender identity: Female Cognitive needs: No Hearing needs: No Vision needs: No Female Reproductive History Menstrual Age of Menarche: 8 Duration of menses: 3-5 days Date of last menstrual period: 12/30/24 control method: none Total pregnancies: 3 Full term: 2 Ab spontaneous: 1 Date of last pap smear: 08/20/22 (negative pap smear, negative hpv ) History of abnormal pap smear: No Date of Mammogram: 03/18/25 (bi rad 1) Physical Exam Other: External vulva slightly dry. Introitus just inside labia is reddened vagina deep inside is more pink there is a slight white discharge consistent with mild yeast no kurds visible. Results Reviewed Results Reviewed: [facility] [address] [place] [phone] Consultant Nurse: Praveen Cabral M.D. Specimen Inquiry Name: Georgette Oliveros Age/Sex: 39/F : 1985 Unit#: [id number] Attend Dr: RAGHAV,Walk-In C. Re01/19/25 Status: DEP REF Location: .LAB Disch: Specimen: [id number] Collected: 01/19/25 Status: COMP Req#: [id number] Received: 01/20/25 Source: [facility] Sp Desc: Clean Cat Subm Dr: Adrienne Chapman PA-C Ordered: Urine Culture Procedure Result Verified Urine Culture Final 01/21/25-1006 Report Result 50,000 to 100,000 cfu/ml Mixed bacterial charisse characteristic of urogenital contamination. END OF REPORT 01/19/25-BV panel showed candidiasis Assessment & Plan Assessment & Plan (1) Yeast infection of the vagina: Comment: recurrent/extensive teaching; reviewed again 01/23/2025.... Code(s): B37.31 - Acute candidiasis of vulva and vagina Category: Medical (2) Impaired glucose tolerance: Code(s): R73.02 - Impaired glucose tolerance (oral) Category: Medical (3) Encounter for screening examination for sexually transmitted disease: Code(s): Z11.3 - Encounter for screening for infections with a predominantly sexual mode of transmission Category: Medical Plan The challenge of dealing with prevention rather than cure was again addressed in detail she has a lot of awareness unfortunately her uniform does not allow for air to her vulva and her choice of underwear has not helped. She also thinks there maybe a detergent component and she is going to switch back to her previous all free and Clear.. Discussed just being aware and needing to change out of her work close as soon as she is able to and rinse with cool water and allow cotton and invest in some cotton underwear which she plans to do on [employer] suggested [id number] Monistat 7 maybe cheaper at [employer] to have some in the house available to her and I did send refills of her Diflucan so she always has some prevention is much preferable. Noted after patient left patient's random glucose at her physical exam with her primary this year was 113 and it was discuss a little bit with her primary care call placed to patient's phone to discuss with her as well. She called me right back and we discussed this and she will be working on it and we will be getting the fasting blood work that her primary ordered for her as well discussed the role of increased blood sugar with recurrent yeast infections and the role of diet and avoidance of carbs and sugars including fruits, and prevention and avoidance of pre diabetes. Medications: Refilled fluconazole may repeat second dose 72 hrs after first dose if symptoms persist 150 mg PO Q3D 2 tabs 2RF Coding Level of Care Code Est Pt Level 3 (06008) Diagnoses Yeast infection of the vagina B37.31 Impaired glucose tolerance R73.02 Encounter for screening examination for sexually transmitted disease Z11.3
[2025-01-23 09:19] VITALS: BP 124/72; BMI 35.0
--- OUTSIDE RECORDS SUMMARY | 2025-01-23 09:56 | XMS_ITS | Clinical Summary ---
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
--- OUTSIDE RECORDS SUMMARY | 2025-01-23 09:56 | XMS_ITS | Clinical Summary ---
Author Organization [facility] Address [address] [place] [address] Phone Care Team Providers Care Kitchen Clerk Name Role Phone Unavailable Primary Care Provider [...] 2011 Influenza Vaccines (#1) 2024 COVID-19 Vaccine (2024- season) 2024 MMR Vaccines Completed 09/10/1995, 03/22/1995 [...]
== END 2025-01-23 10:48 | disposition home or self-care (01) ==
LOC: HO.HWSM 09:12
PROVIDERS: PCP Internal Medicine; Visit Provider Advanced Practice Midwife
DX: B37.31 Acute candidiasis of vulva and vagina (principal); R73.02 Impaired glucose tolerance (oral); Z11.3 Encounter for screening for infections with a predominantly sexual mode of transmission
CPT/HCPCS: 99213

== ENCOUNTER 2025-01-23 09:12 | Outpatient (REF) | payer OTHER, SELFPAY ==
[2025-01-24 15:05] LABS: Bacterial Vaginosis PCR NEGATIVE (Negative); Candida Group PCR DETECTED (Not Detect); Candida glab krusei PCR NOT DETECTED (Not Detect); Trichomonas vaginalis PCR NOT DETECTED (Not Detect)
[2025-01-24 15:35] LABS: CT PCR NOT DETECTED (Not Detect.); NG PCR NOT DETECTED (Not Detect.)
== END 2025-01-23 09:13 | disposition home or self-care (01) ==
LOC: HO.LNP 09:12
PROVIDERS: PCP Internal Medicine; Visit Provider Advanced Practice Midwife
DX: B37.31 Acute candidiasis of vulva and vagina (principal); R73.02 Impaired glucose tolerance (oral); Z20.2 Contact with and (suspected) exposure to infections with a predominantly sexual mode of transmission
CPT/HCPCS: 81515; 87491; 87591